=== PATIENT | female | born 1955 | race Caucasian/White ===

== ENCOUNTER → 2023-04-08 13:02 | Outpatient (REF) | payer MEDICARE, OTHER, SELFPAY ==
[2023-04-08 15:44] LABS: Hematocrit 36.4 % (37.0-47.0); Mean Corpuscular Hgb 29.1 pg (27.0-31.0); Mean Corpuscular Volume 88.1 fL (81.0-99.0); Mean Platelet Volume 10.4 fL (7.4-10.4); Platelet Count 382 10^3/uL (130-400); Red Blood Cell Count 4.13 10^6/uL (4.20-5.40); Red Cell Dist. Width 12.7 % (11.5-14.5); White Blood Cell Count 8.5 10^3/uL (4.8-10.8)
[2023-04-08 15:58] LABS: Blood Urea Nitrogen 27 mg/dl (7-17); Calcium 9.2 mg/dl (8.4-10.2); Carbon Dioxide 31 mmol/L (22-30); Chloride 100 mmol/L (98-107); Glucose 101 mg/dl (70-99); Potassium 4.4 mmol/L (3.5-5.1); Sodium 139 mmol/L (135-145); eGFR 49.92
[2023-04-09 11:03] LABS: Glycohemoglobin (HgbA1c) 5.3 % (4.0-5.6)
== END ==
LOC: HWLAB 13:02
PROVIDERS: ATTENDING PHYSICIAN Orthopaedic Surgery; FAMILY PHYSICIAN Internal Medicine
DX: Z01.818 Encounter for other preprocedural examination (principal); E11.9 Type 2 diabetes mellitus without complications
CPT/HCPCS: 36415; 80048; 83036; 85027

== ENCOUNTER → 2023-04-22 14:42 | Outpatient (REF) | payer MEDICARE, OTHER, SELFPAY | LOC: HWRAD 14:42 | PROVIDERS: ATTENDING PHYSICIAN Internal Medicine | DX: M54.42 Lumbago with sciatica, left side (principal) | CPT/HCPCS: 72110 ==

== ENCOUNTER → 2023-05-13 14:32 | Outpatient (REF) | payer MEDICARE, OTHER, SELFPAY | LOC: HWRAD 14:32 | PROVIDERS: ATTENDING PHYSICIAN Physician Assistant Medical; FAMILY PHYSICIAN Internal Medicine | DX: R10.32 Left lower quadrant pain (principal) | CPT/HCPCS: 72170 ==

== ENCOUNTER → 2023-05-27 16:13 | Outpatient (REF) | payer MEDICARE, OTHER, SELFPAY | LOC: HWRAD 16:13 | PROVIDERS: ATTENDING PHYSICIAN Anesthesiology; FAMILY PHYSICIAN Internal Medicine | DX: M54.16 Radiculopathy, lumbar region (principal) | CPT/HCPCS: 72131 ==

== ENCOUNTER → 2023-08-04 12:48 | Outpatient (REF) | payer MEDICARE, OTHER, SELFPAY | LOC: WOUND 12:48 | PROVIDERS: ATTENDING PHYSICIAN Surgery; FAMILY PHYSICIAN Internal Medicine | DX: S31.109A Unspecified open wound of abdominal wall, unspecified quadrant without penetration into peritoneal cavity, initial encounter (principal); E11.69 Type 2 diabetes mellitus with other specified complication; E66.01 Morbid (severe) obesity due to excess calories; I89.0 Lymphedema, not elsewhere classified; N18.31 Chronic kidney disease, stage 3a; E11.22 Type 2 diabetes mellitus with diabetic chronic kidney disease | CPT/HCPCS: 99203 ==

== ENCOUNTER → 2023-08-16 13:22 | Outpatient (REF) | payer MEDICARE, OTHER, SELFPAY | LOC: WOUND 13:22 | PROVIDERS: ATTENDING PHYSICIAN Surgery; FAMILY PHYSICIAN Internal Medicine | DX: S31.109A Unspecified open wound of abdominal wall, unspecified quadrant without penetration into peritoneal cavity, initial encounter (principal); E11.69 Type 2 diabetes mellitus with other specified complication; E66.01 Morbid (severe) obesity due to excess calories; I89.0 Lymphedema, not elsewhere classified; N18.31 Chronic kidney disease, stage 3a; E11.22 Type 2 diabetes mellitus with diabetic chronic kidney disease; X58.XXXA Exposure to other specified factors, initial encounter | CPT/HCPCS: 99212 ==

== ENCOUNTER → 2023-09-26 12:42 | Outpatient (REF) | payer MEDICARE, OTHER, SELFPAY ==
[2023-09-26 15:36] LABS: % Basophils 1.1 % (0-2); % Eosinophils 5.9 % (0-6); % Immature Granulocytes 0.3 % (0-0.5); % Lymphocytes 29.8 % (20.5-51.1); % Monocytes 9.9 % (1.7-9.3); Absolute Basophils 0.1 10^3/uL (0-0.2); Absolute Eosinophils 0.5 10^3/uL (0-0.7); Absolute Lymphocytes 2.7 10^3/uL (1.2-3.4); Absolute Monocytes 0.9 10^3/uL (0.1-0.6); Absolute Neutrophils 4.8 10^3/uL (1.4-6.5); Hemoglobin 11.4 g/dL (12.0-16.0); Mean Corp Hgb Conc. 32.6 g/dL (33.0-37.0); Mean Corpuscular Hgb 25.9 pg (27.0-31.0); Mean Corpuscular Volume 79.5 fL (81.0-99.0); Nucleated Red Blood Cells % 0 %; Platelet Count 374 10^3/uL (130-400); Red Cell Dist. Width 16.5 % (11.5-14.5); White Blood Cell Count 9.1 10^3/uL (4.8-10.8)
[2023-09-26 15:46] LABS: ALT (SGPT) 14 U/L (0-35); AST (SGOT) 23 U/L (14-36); Albumin 3.5 g/dl (3.5-5.0); Alkaline Phosphatase 77 U/L (38-126); Blood Urea Nitrogen 26 mg/dl (7-17); Calcium 9.3 mg/dl (8.4-10.2); Carbon Dioxide 30 mmol/L (22-30); Chloride 105 mmol/L (98-107); Glucose 89 mg/dl (70-99); HDL Cholesterol 43 mg/dl; LDL Cholesterol, Calculated 78 mg/dl; Potassium 4.2 mmol/L (3.5-5.1); Sodium 138 mmol/L (135-145); Total Bilirubin 0.2 mg/dl (0.2-1.3); Total Cholesterol 144 mg/dl (50-199); Total Protein 5.6 g/dl (6.3-8.2); Triglyceride 117 mg/dl (10-149); Very Low Density Lipoprotein 23 mg/dl (0-30); eGFR 49.92
[2023-09-26 16:07] LABS: Microalbumin/creatinine Ratio 6.5 mg/g
[2023-09-26 16:14] LABS: TSH 0.75 uIU/ml (0.47-4.68)
[2023-09-27 08:57] LABS: Glycohemoglobin (HgbA1c) 4.9 % (4.0-5.6)
== END ==
LOC: HWLAB 12:42
PROVIDERS: ATTENDING PHYSICIAN Internal Medicine
DX: E03.9 Hypothyroidism, unspecified (principal); E11.65 Type 2 diabetes mellitus with hyperglycemia; I10 Essential (primary) hypertension; E78.2 Mixed hyperlipidemia
CPT/HCPCS: 36415; 80053; 80061; 82043; 82570; 83036; 84443; 85025

== ENCOUNTER → 2023-10-11 13:20 | Outpatient (REF) | payer MEDICARE, OTHER, SELFPAY ==
[2023-10-11 16:07] LABS: Iron 32 ug/dl (37-170)
[2023-10-11 16:16] LABS: Percent Saturation 9 % (20-50); Total Iron Binding Capacity 347 ug/dl (265-497)
[2023-10-11 16:45] LABS: Ferritin 9.6 ng/ml (11.1-264.0)
== END ==
LOC: HWLAB 13:20
PROVIDERS: ATTENDING PHYSICIAN Internal Medicine Hematology & Oncology; FAMILY PHYSICIAN Family Medicine
DX: D72.829 Elevated white blood cell count, unspecified (principal); E61.1 Iron deficiency; D50.9 Iron deficiency anemia, unspecified
CPT/HCPCS: 36415; 82728; 83540; 83550

== ENCOUNTER → 2023-10-21 12:53 | Outpatient (REF) | payer MEDICARE, OTHER, SELFPAY ==
[2023-10-21 16:14] LABS: Iron 32 ug/dl (37-170)
[2023-10-21 16:24] LABS: Percent Saturation 9 % (20-50); Total Iron Binding Capacity 322 ug/dl (265-497)
[2023-10-21 16:27] LABS: % Basophils 0.5 % (0-2); % Eosinophils 1.8 % (0-6); % Immature Granulocytes 0.4 % (0-0.5); % Monocytes 7.7 % (1.7-9.3); % Neutrophils 71.6 % (42.2-75.2); Absolute Basophils 0.1 10^3/uL (0-0.2); Absolute Eosinophils 0.2 10^3/uL (0-0.7); Absolute Immature Granulocytes 0.1 10^3/uL (0-0.05); Absolute Monocytes 0.9 10^3/uL (0.1-0.6); Absolute Neutrophils 8.1 10^3/uL (1.4-6.5); Hematocrit 33.6 % (37.0-47.0); Mean Corp Hgb Conc. 32.7 g/dL (33.0-37.0); Mean Corpuscular Hgb 26.8 pg (27.0-31.0); Mean Corpuscular Volume 81.8 fL (81.0-99.0); Mean Platelet Volume 10.4 fL (7.4-10.4); Nucleated Red Blood Cells % 0 %; Platelet Count 338 10^3/uL (130-400); Red Blood Cell Count 4.11 10^6/uL (4.20-5.40); Red Cell Dist. Width 18.8 % (11.5-14.5); White Blood Cell Count 11.3 10^3/uL (4.8-10.8)
[2023-10-21 16:51] LABS: Ferritin 10.8 ng/ml (11.1-264.0)
== END ==
LOC: HWLAB 12:53
PROVIDERS: ATTENDING PHYSICIAN Internal Medicine Hematology & Oncology; FAMILY PHYSICIAN Internal Medicine
DX: D72.829 Elevated white blood cell count, unspecified (principal); E61.1 Iron deficiency; D50.9 Iron deficiency anemia, unspecified
CPT/HCPCS: 36415; 82728; 83540; 83550; 85025

== ENCOUNTER → 2023-10-24 15:59 | Outpatient (REF) | payer MEDICARE, OTHER, SELFPAY ==
[2023-10-24 11:59] LABS: % Basophils 0.7 % (0-2); % Eosinophils 3.6 % (0-6); % Immature Granulocytes 0.5 % (0-0.5); % Lymphocytes 24.4 % (20.5-51.1); % Monocytes 9.4 % (1.7-9.3); % Neutrophils 61.4 % (42.2-75.2); Absolute Basophils 0.1 10^3/uL (0-0.2); Absolute Eosinophils 0.5 10^3/uL (0-0.7); Absolute Immature Granulocytes 0.1 10^3/uL (0-0.05); Absolute Lymphocytes 3.6 10^3/uL (1.2-3.4); Absolute Monocytes 1.4 10^3/uL (0.1-0.6); Absolute Neutrophils 9.1 10^3/uL (1.4-6.5); Hematocrit 35.1 % (37.0-47.0); Hemoglobin 11.4 g/dL (12.0-16.0); Mean Corp Hgb Conc. 32.5 g/dL (33.0-37.0); Mean Corpuscular Hgb 26.4 pg (27.0-31.0); Mean Corpuscular Volume 81.3 fL (81.0-99.0); Mean Platelet Volume 9.9 fL (7.4-10.4); Nucleated Red Blood Cells % 0 %; Platelet Count 386 10^3/uL (130-400); Red Blood Cell Count 4.32 10^6/uL (4.20-5.40); Red Cell Dist. Width 18.9 % (11.5-14.5); White Blood Cell Count 14.8 10^3/uL (4.8-10.8)
[2023-10-24 12:45] LABS: Vitamin D, 25-OH*** 57.1 ng/mL (30-80)
== END ==
LOC: OIDL 15:59
PROVIDERS: ATTENDING PHYSICIAN Internal Medicine Hematology & Oncology
DX: D72.829 Elevated white blood cell count, unspecified (principal); E55.9 Vitamin D deficiency, unspecified
CPT/HCPCS: 82306; 85025

== ENCOUNTER 2023-10-29 15:32 | Emergency (ER) | payer MEDICARE, OTHER, SELFPAY ==
[2023-10-29 15:41] VITALS: BP 131/73
[2023-10-29 16:04] LABS: % Basophils 0.8 % (0-2); % Eosinophils 3.3 % (0-6); % Immature Granulocytes 0.5 % (0-0.5); % Monocytes 8.6 % (1.7-9.3); % Neutrophils 72.8 % (42.2-75.2); Absolute Basophils 0.1 10^3/uL (0-0.2); Absolute Eosinophils 0.5 10^3/uL (0-0.7); Absolute Immature Granulocytes 0.1 10^3/uL (0-0.05); Absolute Monocytes 1.3 10^3/uL (0.1-0.6); Absolute Neutrophils 10.6 10^3/uL (1.4-6.5); Hematocrit 36.2 % (37.0-47.0); Hemoglobin 11.8 g/dL (12.0-16.0); Mean Corp Hgb Conc. 32.6 g/dL (33.0-37.0); Mean Corpuscular Hgb 26.7 pg (27.0-31.0); Mean Corpuscular Volume 81.9 fL (81.0-99.0); Mean Platelet Volume 9.8 fL (7.4-10.4); Nucleated Red Blood Cells % 0 %; Platelet Count 363 10^3/uL (130-400); Red Blood Cell Count 4.42 10^6/uL (4.20-5.40); Red Cell Dist. Width 20.5 % (11.5-14.5); White Blood Cell Count 14.6 10^3/uL (4.8-10.8)
[2023-10-29 16:17] LABS: ALT (SGPT) 22 U/L (0-35); AST (SGOT) 33 U/L (14-36); Albumin 3.7 g/dl (3.5-5.0); Alkaline Phosphatase 75 U/L (38-126); Blood Urea Nitrogen 23 mg/dl (7-17); Calcium 9.3 mg/dl (8.4-10.2); Carbon Dioxide 25 mmol/L (22-30); Chloride 110 mmol/L (98-107); Glucose 111 mg/dl (70-99); Potassium 4.3 mmol/L (3.5-5.1); Sodium 141 mmol/L (135-145); Total Bilirubin 0.5 mg/dl (0.2-1.3); Total Protein 5.9 g/dl (6.3-8.2); eGFR 49.92
[2023-10-29 16:27] LABS: NT-proBNP 302 pg/ml
[2023-10-29 17:36] VITALS: BMI 39.4
[2023-10-29 17:43] VITALS: BP 119/72
[2023-10-29 18:00] VITALS: BP 111/61
--- NOTE | 2023-10-29 18:20 | ED.GENMED ---
History of Present Illness
General
Chief Complaint: Musculo-Skeletal Complaint
Time Seen by Provider: 10/29/23 18:05
History of Present Illness
History of Present Illness:
67-year-old female With history of hypertension, hyperlipidemia, dbn-ipkajke-eojdnijpo diabetes, and hypothyroidism presents to the emergency department for evaluation of bilateral leg pain with significantly increased lower extremity edema over the
past several days. She states she has chronic leg pain right worse than left, has been seeing her paintless dent repair technician for this and recently received an epidural. States that 'overnight' her legs became severely swollen. She does have a
Charcot foot on the left and she is awaiting a custom orthotic for this. Denies any fevers or chills.
Past History
Past History
ED Past Medical History: HTN, Hypercholesterolemia, Hypothyroidism and Other (Review C. difficile with stool transplant, diabetes, hyperlipidemia, hypothyroidism, chronic pain, bilateral knee replacements, asthma)
ED Past Surgical History: Other (00phrectomy hysterectomy, perforated duodenal ulcer)
Social History
Tobacco: Non-smoker
Alcohol: None
Drug: None
Personal:
Living: with family
Employment: Employed
Family History
Family History: Other (Noncontributory)
Review of Systems
Review of Systems
Allergies reviewed?: Yes
All Other Systems: ROS reviewed and negative except as documented in HPI and ROS
Phy Exam
Physical Exam
Physical Exam:
GEN: Well appearing, NAD, WDWN
HEENT: Oral mucosa moist, no scleral icterus
Cardiac: Regular rate And rhythm, no murmurs
Lung: No respiratory distress, no tachypnea Lungs clear to auscultation bilaterally
MSK: No gross deformity or injuries. 3+ pitting edema bilateral lower extremities. The left medial calf there is mild ecchymosis adjacent to a superficial ruptured bullae, no erythema. DP and PT pulses 2+ bilat
Skin: Good color, no pallor or jaundice, no rashes
Neuro: AO x3, moves all extremities freely
Psych: Calm, cooperative
Course
Orders/Labs/Results
Orders:
Orders
10/29/23 15:53
BNP [NT-proBNP] Urgent
Complete Blood Count/With Diff Urgent
Comprehensive Metabolic Panel Urgent
10/29/23 18:16
Venous Doppler Lwr Ext Bilat [US Periph Venous LOWER Ext Rolando] Urgent
Comment:
Reason For Exam: BLE edema
Abnormal Lab Results
10/29/23
15:53
WBC 14.6 H 10^3/uL
(4.8-10.8)
Hgb 11.8 L g/dL
(12.0-16.0)
Hct 36.2 L %
(37.0-47.0)
MCH 26.7 L pg
(27.0-31.0)
MCHC 32.6 L g/dL
(33.0-37.0)
RDW 20.5 H %
(11.5-14.5)
Abs Immat Gran (auto) 0.1 H 10^3/uL
(0-0.05)
Absolute Neuts (auto) 10.6 H 10^3/uL
(1.4-6.5)
Absolute Monos (auto) 1.3 H 10^3/uL
(0.1-0.6)
Lymphocytes % 14.0 L %
(20.5-51.1)
Chloride 110 H mmol/L
(98-107)
BUN 23 H mg/dl
(7-17)
Creatinine 1.2 H mg/dL
(0.6-1.0)
Glucose 111 H mg/dl
(70-99)
Total Protein 5.9 L g/dl
(6.3-8.2)
10/29/23 15:53
10/29/23 15:53
Vital Signs
Initial and Last Documented VS:
Initial Vital Signs
Temp Pulse Resp BP Pulse Ox
97.8 F 100 20 131/73 96
10/29/23 15:41 10/29/23 15:41 10/29/23 15:41 10/29/23 15:41 10/29/23 15:41
Last Documented Vital Signs
Temp Pulse Resp BP Pulse Ox
97.8 F 99 28 111/61 98
10/29/23 15:41 10/29/23 18:30 10/29/23 18:30 10/29/23 18:00 10/29/23 17:45
MDM/Problems Addressed
MDM/Problems Addressed:
Patient's labs are reassuring. She has no clinical findings to support infectious etiology to her leg pain given that there is no erythema or warmth. She does have mild leukocytosis however I do not suspect infectious cause. She describes
symptoms as a burning pain particularly in the right leg that is worse with exertion however there is no aching discomfort and the pain does not seem to resolve at rest, she has strong dorsalis pedis and posterior tibialis pulses bilaterally thus I
do not have any concern for peripheral arterial disease/claudication. Ultrasound shows no evidence for DVT. Likely venous stasis causing her edema. Her chronic leg pain is likely neuropathic in nature. She is on chronic opioids will prescribe
her a small additional quantity however she is advised to follow-up with her paintless dent repair technician for further discussion
*Critical Care Note
Total Time (30-74mins, 75-104mins- exclusive of procedures): Not Applicable
ED Attending Note
-
Portions of this chart may have been created with voice recognition software.� Occasional wrong word or��sound alike� substitutions may have occurred due to the inherent limitations of voice recognition software.
Discharge Plan
Departure
Patient Disposition: Home (Routine Discharge)
Date of Disposition: 10/29/23
Time of Disposition: 19:19
Patient with high blood pressure during this ER visit?: No
Discharge Problem:
Bilateral edema of lower extremity
Instructions: Swelling
Prescriptions:
New
hydrocodone-acetaminophen 5-325 mg tablet
1 tab PO Q8H PRN (Reason: pain) Qty: 8 0RF
No Action
atorvastatin 10 MG tablet
20 mg PO DAILY
levothyroxine [Levothroid] 50 MCG tablet
50 mcg PO DAILY
lisinopril 40 MG tablet
40 mg PO DAILY
bupropion HCl 300 MG tablet extended release 24 hr
300 mg PO DAILY
duloxetine 60 MG capsule,delayed release(DR/EC)
20 mg PO DAILY
polyethylene glycol 3350 17 GRAMS powder in packet
17 grams PO DAILY Qty: 12 0RF
famotidine 40 MG tablet
40 mg PO HS
cyanocobalamin (vitamin B-12) 1,000 MCG tablet
1,000 mcg PO DAILY
amlodipine 5 MG tablet
5 mg PO DAILY
omeprazole 40 MG capsule,delayed release(DR/EC)
40 mg PO DAILY
calcium carbonate [Calcium 500] 500 MG tablet,chewable
1 tab PO DAILY
rosuvastatin 5 MG tablet
5 mg PO QPM
magnesium citrate 100 MG tablet
200 mg PO HS
pediatric multivitamin no.17 1 TABLET tablet,chewable
1 ea PO DAILY
Phentermine HCl
37.5 mg PO DAILY
mupirocin 1 APPLIC ointment
1 applic topical BID Qty: 1 0RF
Patient Comments:
pt states she started as ordered 01/10 and did own dose this am at 0300
hydrochlorothiazide 25 MG tablet
25 mg PO DAILY
sennosides [senna] 1 TABLET tablet
2 tab PO BID 0RF
acetaminophen 325 MG tablet
650 mg PO Q4HPRN PRN (Reason: mild pain) 0RF
aspirin 325 MG tablet
325 mg PO DAILY 0RF
tramadol 50 MG tablet
100 mg PO TID Qty: 30 0RF
Rx Instructions:
Dx TSA
Ongoing therapy
hydrocodone-acetaminophen 1 TABLET tablet
1 tab PO Q4HPRN PRN (Reason: moderate pain) Qty: 20 0RF
Rx Instructions:
Dx TSA
ongoing therapy
hydrocodone-acetaminophen 1 TABLET tablet
2 tab PO Q4HPRN PRN (Reason: severe pain) Qty: 20 0RF
Rx Instructions:
Dx TSA
ongoing therapy
docusate sodium 100 MG capsule
100 mg PO BID 0RF
insulin aspart U-100 [Novolog FlexPen U-100 Insulin] 300 UNITS/3 ML insulin pen
0 units SC AC 0RF
insulin aspart U-100 [Novolog FlexPen U-100 Insulin] 300 UNITS/3 ML insulin pen
3 units SC AC 0RF
ibuprofen [Advil] 200 MG tablet
400 mg PO BID Qty: 0 0RF
Rx Instructions:
with food
diclofenac epolamine 1 EACH patch 12 hour
1 ea S Q12H Qty: 2 0RF
Rx Instructions:
2 patches to R neck q12h
Referrals:
Dafne Ma DO [Family Provider] -
Activity Restrictions/Additional Instructions:
Increase your furosemide to 80mg for 3-5 days. If edema improves rapidly, stop after 3 days and return to your normal 40mg dose
Follow up with your primary care physician to discuss compression stockings if symptoms worsen
Interventions
Interventions:
*Risk Screen - Suicide Last Done: 10/29/23 17:36
*General Assessment Last Done: 10/29/23 17:36
*Neglect/Abuse Screening Last Done: 10/29/23 17:36
ED- Fall Risk Assessment Last Done: 10/29/23 17:36
*ED COVID-19 Vaccine History Last Done: 10/29/23 17:36
*Nursing Disposition Last Done: 10/29/23 19:50
ED-Musculoskeletal Assessment Last Done: 10/29/23 17:36
Discharge Date and Time
Discharge Date/Time: 10/29/23 19:52
Print Language: MALAY
== END 2023-10-29 19:52 | disposition home or self-care (01) ==
LOC: EMR 15:32
PROVIDERS: Emergency Medicine; EMERGENCY PHYSICIAN Student in an Organized Health Care Education/Training Program; FAMILY PHYSICIAN Internal Medicine
DX: R60.0 Localized edema (principal); E78.00 Pure hypercholesterolemia, unspecified; E11.9 Type 2 diabetes mellitus without complications; E03.9 Hypothyroidism, unspecified; I10 Essential (primary) hypertension; J45.909 Unspecified asthma, uncomplicated; Z90.710 Acquired absence of both cervix and uterus; Z96.653 Presence of artificial knee joint, bilateral
CPT/HCPCS: 99284; 80053; 83880; 85025; 93970

== ENCOUNTER → 2023-10-31 13:15 | Outpatient (REF) | payer MEDICARE, OTHER, SELFPAY ==
[2023-10-31 11:16] LABS: % Basophils 0.9 % (0-2); % Eosinophils 4.8 % (0-6); % Immature Granulocytes 0.5 % (0-0.5); % Lymphocytes 29.6 % (20.5-51.1); % Monocytes 8.9 % (1.7-9.3); % Neutrophils 55.3 % (42.2-75.2); Absolute Basophils 0.1 10^3/uL (0-0.2); Absolute Eosinophils 0.5 10^3/uL (0-0.7); Absolute Immature Granulocytes 0.1 10^3/uL (0-0.05); Absolute Lymphocytes 2.9 10^3/uL (1.2-3.4); Absolute Monocytes 0.9 10^3/uL (0.1-0.6); Absolute Neutrophils 5.4 10^3/uL (1.4-6.5); Hematocrit 34.6 % (37.0-47.0); Hemoglobin 11.4 g/dL (12.0-16.0); Mean Corp Hgb Conc. 32.9 g/dL (33.0-37.0); Mean Corpuscular Hgb 27.5 pg (27.0-31.0); Mean Corpuscular Volume 83.6 fL (81.0-99.0); Mean Platelet Volume 9.9 fL (7.4-10.4); Nucleated Red Blood Cells % 0 %; Platelet Count 326 10^3/uL (130-400); Red Blood Cell Count 4.14 10^6/uL (4.20-5.40); Red Cell Dist. Width 20.9 % (11.5-14.5); White Blood Cell Count 9.8 10^3/uL (4.8-10.8)
[2023-10-31 18:16] LABS: Erythrocyte Sed Rate 12 mm/hour (0-20)
== END ==
LOC: OIDL 13:15
PROVIDERS: ATTENDING PHYSICIAN Internal Medicine Hematology & Oncology
DX: D72.829 Elevated white blood cell count, unspecified (principal)
CPT/HCPCS: 85025; 85652

== ENCOUNTER → 2023-11-22 12:30 | Outpatient (REF) | payer MEDICARE, OTHER, SELFPAY ==
[2023-11-22 14:11] VITALS: BMI 36.5
[2023-11-22 14:37] LABS: Hematocrit 41.8 % (37.0-47.0); Hemoglobin 13.8 g/dL (12.0-16.0); Mean Corpuscular Hgb 29.6 pg (27.0-31.0); Mean Corpuscular Volume 89.7 fL (81.0-99.0); Mean Platelet Volume 10.3 fL (7.4-10.4); Platelet Count 330 10^3/uL (130-400); Red Blood Cell Count 4.66 10^6/uL (4.20-5.40); Red Cell Dist. Width 21.1 % (11.5-14.5); White Blood Cell Count 8.5 10^3/uL (4.8-10.8)
[2023-11-22 15:09] LABS: ALT (SGPT) 21 U/L (0-35); AST (SGOT) 27 U/L (14-36); Albumin 3.3 g/dl (3.5-5.0); Alkaline Phosphatase 88 U/L (38-126); Blood Urea Nitrogen 25 mg/dl (7-17); Calcium 9.4 mg/dl (8.4-10.2); Carbon Dioxide 27 mmol/L (22-30); Chloride 110 mmol/L (98-107); Estimated Creatinine Clearance 45 ml/min; Glucose 94 mg/dl (70-99); Potassium 4.2 mmol/L (3.5-5.1); Sodium 146 mmol/L (135-145); Total Bilirubin 0.3 mg/dl (0.2-1.3); Total Protein 5.5 g/dl (6.3-8.2); eGFR 49.92
[2023-11-23 08:39] LABS: Glycohemoglobin (HgbA1c) 4.5 % (4.0-5.6)
[2023-12-06 16:04] VITALS: BMI 36.5
--- NOTE | 2023-12-06 16:09 | PTCARENOTE ---
Pt stated she was put on Cefuroxime for a recent sinus infection, they switched it to Amoxicillin today due to GI upset. She has a 'blister' on her left left that is oozing, has to keep it wrapped. She has no help at home, has not gotten her
walker for after procedure and has not set up her outpt therapy. She was made aware that she needs to get her walker and set up outpt PT for 12/11 NATACHA. Shaneka in the office was made aware of all these findings.
She has been taking phentermine daily longer than recommended, last dose today. Dr Dillon made aware and stated she needs to stop the rest of the week and can proceed. Pt verbalized understanding.
== END ==
LOC: REG 12:30
PROVIDERS: ATTENDING PHYSICIAN Orthopaedic Surgery; FAMILY PHYSICIAN Internal Medicine
DX: M17.11 Unilateral primary osteoarthritis, right knee (principal); Z01.818 Encounter for other preprocedural examination
CPT/HCPCS: 36415; 80053; 83036; 85027; 87070; 93005

== ENCOUNTER → 2023-12-19 13:01 | Outpatient (REF) | payer MEDICARE, OTHER, SELFPAY ==
[2023-12-19 15:40] LABS: % Basophils 1.3 % (0-2); % Eosinophils 6.2 % (0-6); % Immature Granulocytes 0.2 % (0-0.5); % Lymphocytes 29.8 % (20.5-51.1); % Monocytes 10.4 % (1.7-9.3); % Neutrophils 52.1 % (42.2-75.2); Absolute Basophils 0.1 10^3/uL (0-0.2); Absolute Eosinophils 0.5 10^3/uL (0-0.7); Absolute Lymphocytes 2.6 10^3/uL (1.2-3.4); Absolute Monocytes 0.9 10^3/uL (0.1-0.6); Absolute Neutrophils 4.5 10^3/uL (1.4-6.5); Hematocrit 38.8 % (37.0-47.0); Hemoglobin 12.8 g/dL (12.0-16.0); Mean Corpuscular Hgb 29.6 pg (27.0-31.0); Mean Corpuscular Volume 89.8 fL (81.0-99.0); Mean Platelet Volume 10.2 fL (7.4-10.4); Nucleated Red Blood Cells % 0 %; Platelet Count 315 10^3/uL (130-400); Red Blood Cell Count 4.32 10^6/uL (4.20-5.40); White Blood Cell Count 8.6 10^3/uL (4.8-10.8)
[2023-12-19 15:49] LABS: Albumin 3.4 g/dl (3.5-5.0); Blood Urea Nitrogen 18 mg/dl (7-17); Calcium 9.1 mg/dl (8.4-10.2); Carbon Dioxide 28 mmol/L (22-30); Chloride 105 mmol/L (98-107); Glucose 78 mg/dl (70-99); Iron 69 ug/dl (37-170); Phosphorus 4.3 mg/dl (2.5-4.5); Potassium 3.9 mmol/L (3.5-5.1); Sodium 141 mmol/L (135-145); eGFR 45.07
[2023-12-19 15:58] LABS: Percent Saturation 32 % (20-50); Total Iron Binding Capacity 211 ug/dl (265-497)
== END ==
LOC: HWLAB 13:01
PROVIDERS: ATTENDING PHYSICIAN Internal Medicine Hematology & Oncology; FAMILY PHYSICIAN Internal Medicine; REFERRING PHYSICIAN Internal Medicine Cardiovascular Disease
DX: D72.829 Elevated white blood cell count, unspecified (principal); E61.1 Iron deficiency; D50.9 Iron deficiency anemia, unspecified; I10 Essential (primary) hypertension; I89.0 Lymphedema, not elsewhere classified
CPT/HCPCS: 36415; 80069; 82728; 83540; 83550; 85025

== ENCOUNTER 2024-01-16 11:26 | Outpatient (RCR) | payer MEDICARE, OTHER, SELFPAY | END 2024-01-16 23:59 | disposition home or self-care (01) | LOC: RPT 11:26 | PROVIDERS: ATTENDING PHYSICIAN Internal Medicine Cardiovascular Disease; FAMILY PHYSICIAN Internal Medicine | DX: I89.0 Lymphedema, not elsewhere classified (principal); Z73.6 Limitation of activities due to disability; R26.2 Difficulty in walking, not elsewhere classified | CPT/HCPCS: 97162; 97530 ==

== ENCOUNTER 2024-02-03 23:51 | Inpatient (IN) | payer MEDICARE, OTHER, SELFPAY ==
[2024-02-03 17:02] VITALS: BP 107/69
[2024-02-03 17:21] LABS: % Basophils 0.3 % (0-2); % Immature Granulocytes 0.5 % (0-0.5); % Lymphocytes 6.5 % (20.5-51.1); % Monocytes 6.3 % (1.7-9.3); % Neutrophils 86.4 % (42.2-75.2); Absolute Basophils 0.1 10^3/uL (0-0.2); Absolute Immature Granulocytes 0.1 10^3/uL (0-0.05); Absolute Lymphocytes 1.3 10^3/uL (1.2-3.4); Absolute Monocytes 1.3 10^3/uL (0.1-0.6); Absolute Neutrophils 17.6 10^3/uL (1.4-6.5); Hematocrit 44.3 % (37.0-47.0); Hemoglobin 15.2 g/dL (12.0-16.0); Mean Corp Hgb Conc. 34.3 g/dL (33.0-37.0); Mean Corpuscular Hgb 31.7 pg (27.0-31.0); Mean Corpuscular Volume 92.5 fL (81.0-99.0); Mean Platelet Volume 10.2 fL (7.4-10.4); Nucleated Red Blood Cells % 0 %; Platelet Count 325 10^3/uL (130-400); Red Blood Cell Count 4.79 10^6/uL (4.20-5.40); Red Cell Dist. Width 12.6 % (11.5-14.5); White Blood Cell Count 20.4 10^3/uL (4.8-10.8)
[2024-02-03 17:38] LABS: ALT (SGPT) 18 U/L (0-35); AST (SGOT) 26 U/L (14-36); Albumin 3.8 g/dl (3.5-5.0); Alkaline Phosphatase 76 U/L (38-126); Blood Urea Nitrogen 31 mg/dl (7-17); Calcium 9.5 mg/dl (8.4-10.2); Carbon Dioxide 23 mmol/L (22-30); Chloride 109 mmol/L (98-107); Glucose 129 mg/dl (70-99); Potassium 4.3 mmol/L (3.5-5.1); Sodium 141 mmol/L (135-145); Total Bilirubin 0.4 mg/dl (0.2-1.3); eGFR 37.96
--- NOTE | 2024-02-03 19:19 | ED.GENMED ---
History of Present Illness
<Fatuma Lujan PA-C - Last Filed: 02/03/24 23:08>
General
Chief Complaint: Vaginal Bleeding
Source: patient
Exam Limitations: none
Time Seen by Provider: 02/03/24 19:19
Nursing documentation reviewed up to this point in time: agreed with
History of Present Illness
History of Present Illness:
68-year-old female with a past medical history of cervical cancer status post total hysterectomy, diabetes, hypertension, hypothyroidism presents emergency department today with concerns of abdominal pain. This started last night. She feels that
in the lower abdomen on both sides. She has associated intermittent nausea and vomiting. She denies any fevers or chills. She states that this pain feels similar to period cramps however she states that the pain is not in her pelvis. She states
that the pain has been getting worse since last night and has not relieving with Tylenol. The pain does not radiate anywhere. She denies dark melanotic stools. She denies blood in her vomit. She does note that she believes she has vaginal
bleeding, however when asked about this further, she states that she only noticed the blood when urinating and is not sure that it is coming from the vagina. She denies any rectal bleeding or pain. She denies any diarrhea or constipation.
Past History
<RAFY Hung Last Filed: 02/03/24 23:08>
Past History
ED Past Medical History: HTN, Hypercholesterolemia, Hypothyroidism and Other (Review C. difficile with stool transplant, diabetes, hyperlipidemia, hypothyroidism, chronic pain, bilateral knee replacements, asthma)
ED Past Surgical History: Other (00phrectomy hysterectomy, perforated duodenal ulcer)
Social History
Tobacco: Non-smoker
Alcohol: None
Drug: None
Personal:
Living: with family
Employment: Employed
Family History
Family History: Other (Noncontributory)
Review of Systems
<Fatuma Lujan PA-C - Last Filed: 02/03/24 23:08>
Review of Systems
All Other Systems: ROS reviewed and negative except as documented in HPI and ROS
Phy Exam
<Fatuma Lujan PA-C - Last Filed: 02/03/24 23:08>
Physical Exam
Physical Exam:
General: Patient is well appearing and in no acute distress; non-toxic
Skin: Warm and dry, no rashes or lesions
Head: Normocephalic, atraumatic
Eyes: Sclera non-icteric. EOMs intact. PERRLA.
Cardiac: Regular rate and rhythm, no murmurs
Pulm: Normal respiratory effort
Abdomen: Diffuse lower abdominal tenderness to palpation, large ventral hernia noted
Genitourinary: No vaginal lesions. Vaginal mucosa pink and moist without any lesions, no evidence of active bleeding. Surgically absent cervix.
Neuro: CN II-XII intact, no focal neurologic deficits.
Psychiatric: Appropriate mood and affect.
Course
<Fatuma Lujan PA-C - Last Filed: 02/03/24 23:08>
Orders/Labs/Results
Orders:
Orders
02/03/24 17:13
Type+Screen Urgent
Complete Blood Count/With Diff Urgent
Comprehensive Metabolic Panel Urgent
Lipase Urgent
Comment: ADD ON
02/03/24 19:42
ABO2 Urgent
BBK Wristband Number:
Associate notified that ABO2 has been ordered: [id number]/DARLIN
Date: 02/03/24
Time: 17:38
Feeder Driver ID: [id number]
02/03/24 19:53
CT Abd/pel W Iv And Oral Contr Urgent
Comment:
Reason For Exam: diffuse lower abdominal pain
Iohexol [Omnipaque] See Protocol PO NOW STA
02/03/24 21:06
Ondansetron Injectable [Zofran] 4 mg IV NOW STA
02/03/24 21:07
Add On- LAB Urgent
Tests Added?: lipase
Morphine Sulfate 4 mg IV NOW STA
02/03/24 21:58
Urinalysis Reflex To Culture Urgent
Date Specimen was Collected: 02/03/24
Time Specimen was Collected: 21:55
Urine Microscopic Reflex Cult Urgent
02/03/24 22:50
Lactic Acid Urgent
02/03/24 22:52
C DIFF [C difficile Antigen & Toxins] Urgent
LA NENA Source: Feces/Stool
Specimen Description:
Stool Culture Urgent
LA NENA Source: Feces/Stool
Specimen Description:
Abnormal Lab Results
02/03/24 02/03/24
17:13 21:58
WBC 20.4 H 10^3/uL
(4.8-10.8)
MCH 31.7 H pg
(27.0-31.0)
Abs Immat Gran (auto) 0.1 H 10^3/uL
(0-0.05)
Absolute Neuts (auto) 17.6 H 10^3/uL
(1.4-6.5)
Absolute Monos (auto) 1.3 H 10^3/uL
(0.1-0.6)
Neutrophils % 86.4 H %
(42.2-75.2)
Lymphocytes % 6.5 L %
(20.5-51.1)
Chloride 109 H mmol/L
(98-107)
BUN 31 H mg/dl
(7-17)
Creatinine 1.5 H mg/dL
(0.6-1.0)
Glucose 129 H mg/dl
(70-99)
Total Protein 6.0 L g/dl
(6.3-8.2)
Ur Occult Blood Reflex 1+ A
(Negative)
Leukocyte Esterase Rfl Trace A
(Negative)
02/03/24 17:13
02/03/24 17:13
Vital Signs
Initial and Last Documented VS:
Initial Vital Signs
Temp Pulse Resp BP
98.1 F 98 16 107/69
02/03/24 17:02 02/03/24 17:02 02/03/24 17:02 02/03/24 17:02
Last Documented Vital Signs
Temp Pulse Resp BP Pulse Ox
98.1 F 94 16 108/62 98
02/03/24 17:02 02/03/24 19:29 02/03/24 17:02 02/03/24 22:00 02/03/24 22:01
<Saloni Fuller MD - Last Filed: 02/03/24 22:59>
Orders/Labs/Results
Orders:
Orders
02/03/24 17:13
Type+Screen Urgent
Complete Blood Count/With Diff Urgent
Comprehensive Metabolic Panel Urgent
Lipase Urgent
Comment: ADD ON
02/03/24 19:42
ABO2 Urgent
BBK Wristband Number:
Associate notified that ABO2 has been ordered: [id number]/DARLIN
Date: 02/03/24
Time: 17:38
Feeder Driver ID: [id number]
02/03/24 19:53
CT Abd/pel W Iv And Oral Contr Urgent
Comment:
Reason For Exam: diffuse lower abdominal pain
Iohexol [Omnipaque] See Protocol PO NOW STA
02/03/24 21:06
Ondansetron Injectable [Zofran] 4 mg IV NOW STA
02/03/24 21:07
Add On- LAB Urgent
Tests Added?: lipase
Morphine Sulfate 4 mg IV NOW STA
02/03/24 21:58
Urinalysis Reflex To Culture Urgent
Date Specimen was Collected: 02/03/24
Time Specimen was Collected: 21:55
Urine Microscopic Reflex Cult Urgent
02/03/24 22:50
Lactic Acid Urgent
02/03/24 22:52
C DIFF [C difficile Antigen & Toxins] Urgent
LA NENA Source: Feces/Stool
Specimen Description:
Stool Culture Urgent
LA NENA Source: Feces/Stool
Specimen Description:
Abnormal Lab Results
02/03/24 02/03/24
17:13 21:58
WBC 20.4 H 10^3/uL
(4.8-10.8)
MCH 31.7 H pg
(27.0-31.0)
Abs Immat Gran (auto) 0.1 H 10^3/uL
(0-0.05)
Absolute Neuts (auto) 17.6 H 10^3/uL
(1.4-6.5)
Absolute Monos (auto) 1.3 H 10^3/uL
(0.1-0.6)
Neutrophils % 86.4 H %
(42.2-75.2)
Lymphocytes % 6.5 L %
(20.5-51.1)
Chloride 109 H mmol/L
(98-107)
BUN 31 H mg/dl
(7-17)
Creatinine 1.5 H mg/dL
(0.6-1.0)
Glucose 129 H mg/dl
(70-99)
Total Protein 6.0 L g/dl
(6.3-8.2)
Ur Occult Blood Reflex 1+ A
(Negative)
Leukocyte Esterase Rfl Trace A
(Negative)
02/03/24 17:13
02/03/24 17:13
Vital Signs
Initial and Last Documented VS:
Initial Vital Signs
Temp Pulse Resp BP
98.1 F 98 16 107/69
02/03/24 17:02 02/03/24 17:02 02/03/24 17:02 02/03/24 17:02
Last Documented Vital Signs
Temp Pulse Resp BP Pulse Ox
98.1 F 94 16 108/62 98
02/03/24 17:02 02/03/24 19:29 02/03/24 17:02 02/03/24 22:00 02/03/24 22:01
<Fatuma Lujan PA-C - Last Filed: 02/03/24 23:08>
MDM/Problems Addressed
Differential Diagnosis Includes:
Differentials include diverticulitis, gastroenteritis, bowel obstruction, gastroparesis, colitis
MDM/Problems Addressed:
68-year-old female presents emergency department with concerns of abdominal pain that started last night. She also has nausea and vomiting. She has a known large ventral hernia. On physical exam, she is well-appearing, no acute distress, does
have a soft ventral hernia but does have lower abdominal tenderness to palpation. CBC remarkable for leukocytosis of 20,000, CMP shows elevated BUN to creatinine ratio. CT of the abdomen and pelvis shows marked colitis in the transverse colon,
splenic flexure, and descending colon. Will add on lactic acid as well as stool cultures.
Will refer for admission for further evaluation for colitis. Patient accepted by hospitalist for admission.
<Fatuma Lujan PA-C - Last Filed: 02/03/24 23:08>
*Pulse Oximetry
Patient hypoxic: no
*Critical Care Note
Total Time (30-74mins, 75-104mins- exclusive of procedures): Not Applicable
Data Reviewed
Review of Other/Old Records Reveals: Records (reviewed abdominal CT from 01/06/15) and Discharge Summary (reviewed discharge summary from 01/14/21)
Source: patient and records
ED Attending Note
<Fatuma Lujan PA-C - Last Filed: 02/03/24 23:08>
-
Portions of this chart may have been created with voice recognition software.� Occasional wrong word or��sound alike� substitutions may have occurred due to the inherent limitations of voice recognition software.
<Saloni Fuller MD - Last Filed: 02/03/24 22:59>
ED Attending Note
Patient seen and examined by attending physician: Yes
I performed the substantive portion of visit, reviewed & personally made and approve the management plan that is documented in note by myself or JANETH.: Yes
ED Attending Note:
68-year-old female status post recent course of antibiotics reports 1 week history of profuse nonbloody diarrhea associated with vague abdominal discomfort that started yesterday and continues until today. Pain is mostly across the mid lower
abdomen greater on the left side. She denies associated nausea, vomiting, fever, chills, chest pain, shortness of breath. She admits to taking aspirin recently even though she is aware that this is not recommended given her history of gastric
sleeve in the past. She got particular concerned today because she noted bright red blood when she used the bathroom and thought it was coming from her vagina. She is confident it is not coming from her rectum. Patient noted to have normal
vaginal exam, urine demonstrates hematuria, no blood noted from rectum. Abdomen soft, nonspecific mild tenderness to palpation noted at the left mid and lower quadrant, no rebound or guarding. Large reducible hernia noted. CT consistent with
colitis may be ischemic however consideration for C. difficile given history of, recent antibiotics, and diarrhea. We will send stool samples, admitted for continued supportive care.
Discharge Plan
Departure
Patient Disposition: Admit
Date of Disposition: 02/03/24
Time of Disposition: 23:07
Admit to: Med/Surg
Presentation/result/management discussed w/ accepting MD/DO: Hospitalist
Patient with high blood pressure during this ER visit?: Yes
Condition: Fair
Discharge Problem:
Colitis
Prescriptions:
No Action
bupropion HCl 300 MG tablet extended release 24 hr
300 mg PO DAILY
duloxetine 60 MG capsule,delayed release(DR/EC)
60 mg PO DAILY
polyethylene glycol 3350 17 GRAMS powder in packet
17 grams PO DAILY Qty: 12 0RF
famotidine 40 MG tablet
40 mg PO HS
cyanocobalamin (vitamin B-12) 1,000 MCG tablet
1,000 mcg PO DAILY
omeprazole 40 MG capsule,delayed release(DR/EC)
40 mg PO DAILY
calcium carbonate [Calcium 500] 500 MG tablet,chewable
2 tab PO DAILY
multivitamin Tablet
1 tab PO DAILY
furosemide 40 mg Tablet
40 mg PO DAILY
furosemide 40 mg Tablet
40 mg PO DAILY PRN (Reason: extra dose PRN swelling)
lisinopril 20 mg Tablet
20 mg PO DAILY
phentermine 37.5 mg Tablet
37.5 mg PO DAILY
amoxicillin 500 mg Tablet
500 mg PO TID
meclizine 25 mg Tablet
25 mg PO BID PRN (Reason: vertigo)
levothyroxine 50 mcg Tablet
50 mcg PO DAILY
gabapentin 300 mg Capsule
300 mg PO HS
mupirocin 2 % Ointment
1 applic TOPICAL BID
Excedrin Extra Strength 250-250-65 mg Tablet
2 tab PO PRN PRN (Reason: pain)
rosuvastatin 10 mg Tablet
10 mg PO DAILY
tramadol 300 mg Tablet Extended Release 24 Hr
300 mg PO DAILY
Fiber Gummies 2 gram Tablet,Chewable
4 g PO DAILY
diclofenac-me [id number] 1.5-10-6-3.1 % Kit, Patch, Solution Drops
1 ea TOPICAL PRN PRN (Reason: pain)
Mounjaro 15 mg/0.5 mL Pen Injector
15 mg SC TU
hydrocodone-acetaminophen 10-325 mg Tablet
1 tab PO Q6H PRN (Reason: pain)
BenGay Ointment
1 ea TOPICAL PRN PRN (Reason: pain)
azelastine [Astelin] 137 mcg (0.1 %) Cozad,Non-Aerosol
1 spray INTRANASAL BID PRN (Reason: congestion)
Biofreeze 0.2-3.5 % Gel
1 applic TOPICAL DAILY PRN (Reason: pain)
Referrals:
Dafne Ma DO [Family Provider] -
Interventions
Interventions:
*Risk Screen - Suicide Last Done: 02/03/24 17:07
*General Assessment Last Done: 02/03/24 19:29
*Neglect/Abuse Screening Last Done: 02/03/24 17:07
ED- Fall Risk Assessment Last Done: 02/03/24 19:29
*ED COVID-19 Vaccine History Last Done: 02/03/24 19:29
ED-Female Genitourinary Assessment Last Done: 02/03/24 19:29
Discharge Date and Time
Print Language: WOLOF
[2024-02-03 19:29] VITALS: BMI 36.4
[2024-02-03 19:30] VITALS: BP 127/59
[2024-02-03] MEDS: OMNIPAQUE 50 ML PO (19:59)
[2024-02-03 20:00] VITALS: BP 104/56
[2024-02-03 21:00] VITALS: BP 147/47
[2024-02-03] MEDS: MORPHINE SULFATE 4 MG IV (21:29)
[2024-02-03] MEDS: ZOFRAN 4 MG IV (21:29)
[2024-02-03 21:38] LABS: Lipase 115 U/L (23-300)
[2024-02-03 22:00] VITALS: BP 108/62
[2024-02-03 22:10] LABS: Urine Albumin Negative (Neg - Trace); Urine Bilirubin Negative (Negative); Urine Character Clear (Clear); Urine Color Yellow; Urine Glucose Negative (Negative); Urine Ketone Negative (Negative); Urine Leukocyte Trace (Negative); Urine Nitrite Negative (Negative); Urine Occult Blood 1+ (Negative); Urine Urobilinogen Negative (Neg - 1+)
[2024-02-03 22:27] LABS: Urine Squamous Cell 0-2 /LPF (Few)
[2024-02-03 22:28] LABS: Urine Red Blood Cell 0-2 /HPF (0-2); Urine Urothelial Cell 0-2 /LPF (FEW); Urine White Cell 0-2 /HPF (0-5)
[2024-02-03 23:00] VITALS: BP 130/59
--- NOTE | 2024-02-03 23:10 | HPS.HSE ---
Addendum entered and electronically signed by Tan Odell DO 02/03/24 23:49:
Patient seen and examined independently. Agree with findings and plan as set forth by MITESH Haile.
Patient is a 68y F with PMH significant for hypertension, DM-II and obesity who presents to ED complaining of abdominal pain and diarrhea. Patient reports loose stools for about 10 days - increasing in frequency over the past 1-2 days. She
reports diarrhea overth epa day every hour or so. Small amount of blood noted in the toilet on one occasion only. Crampy lower abdominal pain. No fevers / chills. Pos generalized fatigue, myalgias, headache.
Patient did have URI / sinus symptoms a few weeks ago and was treated with abx at that time.
Ass:
Left Sided Colitis - Likely Infectious
RAHEEL on CKD III
Benign Hypertension
DM-II
Chronic Pain Syndrome
Obesity due to excess calories
Plan:
Admit for further evaluation and treatment.
IV abx with Zosyn for now.
Follow-up stool studies and adjust treatment as needed.
Supportive care, IVFs, etc.
Hold diuretics, antihypertensive meds, etc acutely.
Hold phentermine, Mounjaro, etc.
Continue usual pain regimen including Tramadol ER.
Follow for new / worsening symptoms.
GI evaluation for additional recommendations.
Original Note:
Family Physician
-
Family Physician: Dafne Ma DO
Chief Complaint
-
diarrhea and abdominal pain
History of Present Illness
68-year-old female with a past medical history of cervical cancer status post total hysterectomy, diabetes, hypertension, hypothyroidism presents emergency department today with concerns of abdominal pain.patient stated diarrhea for more than a
week. since the gi she was having diarrhea every one hour. she complained of lower abdominal pain. stated vomited couple times in one week.noticed some blood in the toilet not sure from urine or BM. stated chills. denied fever. stated CROUCH.
she complained of generalized body ache. denied sob. denied dysuria. she took abx few weeks ago for sinus congestion and cough.
CT with colitis. admitting for further management.
Medical History
Past Medical History
Past Medical History: Reports Other
Additional Past Medical History:
fatty liver disease
type 2 DM
hld
depression
lymphedema
asthma
cervical cancer
[place]
vertigo
gerd
hypothyroidism
htn
Past Surgical History: Reports Other
Additional Past Surgical History:
bariatric surgery
ex lap
hysterectomy
oophorectomy
jaw surgery
partial vulvectomy
left shoulder surgery
Social History
Tobacco: Former Smoker
Alcohol: Former
Drug: Former User
Living: Alone
Family History
Family History: Not pertinent
Allergies / Home Medications
Allergies reflects when Allergies were last updated in [employer].
Home Medications with original date entered in [employer]
Allergy/Medication List:
Allergies
Allergy/AdvReac Type Severity Reaction Status Date / Time
capsaicin Allergy Rash Verified 12/06/23 15:13
clindamycin Allergy Nausea / Verified 12/06/23 15:13
Vomiting
Sulfa (Sulfonamide Allergy Itching Verified 12/06/23 15:13
Antibiotics)
Home Medications
bupropion HCl 300 mg 24 hr tablet, extended release 300 mg PO DAILY Mental Health/Anxiety 01/06/15
duloxetine 60 mg capsule,delayed release 60 mg PO DAILY Mental Health/Anxiety 01/06/15
calcium carbonate (Calcium 500) 1,000 mg PO DAILY Supplement 12/19/20
cyanocobalamin (vitamin B-12) 1,000 mcg tablet 1,000 mcg PO DAILY Supplement 12/19/20
famotidine 40 mg tablet 40 mg PO HS Gastrointestinal issue 12/19/20
omeprazole 40 mg capsule,delayed release 40 mg PO DAILY Gastrointestinal issue 12/19/20
azelastine 137 mcg (0.1 %) nasal spray 1 spray intranasal BIDPRN PRN congestion 12/06/23
camphor-menthol 0.2 %-3.5 % topical gel 1 applic topical DAILYPRN PRN topical pain 12/06/23
furosemide 40 mg tablet 40 mg PO DAILY 12/06/23
furosemide 40 mg tablet 40 mg PO DAILYPRN PRN extra dose for swelling 12/06/23
hydrocodone 10 mg-acetaminophen 325 mg tablet 1 tab PO Q6HPRN PRN moderate pain 12/06/23
inulin 2 gram chewable tablet (Fiber Gummies) 4 g PO DAILY 12/06/23
levothyroxine 50 mcg tablet 50 mcg PO DAILY 12/06/23
lisinopril 20 mg tablet 20 mg PO DAILY 12/06/23
multivitamin 1 tab PO DAILY 12/06/23
phentermine 37.5 mg tablet 37.5 mg PO DAILY 12/06/23
rosuvastatin 10 mg tablet 10 mg PO DAILY 12/06/23
tirzepatide 15 mg/0.5 mL subcutaneous pen injector (Mounjaro) 15 mg SC TU 12/06/23
tramadol 300 mg tablet,extended release 24 hr 300 mg PO DAILY pain 12/06/23
Review of Systems
-
Constitutional: Reports No Symptoms
EENT: Reports No Symptoms
Respiratory: Reports No Symptoms
Cardiac: Reports No Symptoms
Abdomen/GI: Reports Abdominal Pain, Nausea, Vomiting and Diarrhea
: Reports No Symptoms
Musculoskeletal: Reports No Symptoms
Skin: Reports No Symptoms
Neurological: Reports No Symptoms
Endocrine: Reports No Symptoms
Hematologic/Lymphatic: Reports No Symptoms
Psych: Reports No Symptoms
Physical Exam
Vital Signs
Vital Signs
Temp Pulse Resp BP Pulse Ox
98.1 F 94 16 108/62 98
02/03/24 17:02 02/03/24 19:29 02/03/24 17:02 02/03/24 22:00 02/03/24 22:01
Physical Exam
General: Well Developed, Well Nourished and No Apparent Distress
HEENT: NormoCephalic, Moist mucous membranes and Atraumatic
Respiratory: Clear
Cardiac: S1/S2 and Regular Rhythm; No Murmur or Rub
GI: Soft, Non Tender, Non Distended and Normal Bowel Sounds; No Organomegaly
Rectal: Deferred by Provider
Musculoskeletal: No Clubbing, No Cyanosis and No Edema
Skin: No Rash
Neuro: AO x 3 and Nonfocal/grossly intact
Psych: Calm
Laboratory Results
-
02/03/24 17:13
02/03/24 17:13
Laboratory Results
Total Bilirubin 0.4 mg/dl (0.2-1.3) 02/03/24 17:13
AST 26 U/L (14-36) 02/03/24 17:13
ALT 18 U/L (0-35) 02/03/24 17:13
Alkaline Phosphatase 76 U/L (38-126) 02/03/24 17:13
Lipase 115 U/L (23-300) 02/03/24 17:13
Data Reviewed
-
CT Scan: Report Reviewed by me
Lab Data: Labs Reviewed by me
Impression/Plan
-
#colitis
-wbc 20.4
-CT abdomen pelvis with findings highly suspicious for MARKED COLITIS of at least the transverse colon, splenic flexure and descending colon. No intestinal obstruction or free air.
-stool culture
-clear liquid diet
-Dilaudid prn for pain
-Zofran prn for n.v
-Zosyn continued
-GI consult
#acute kidney on CKD stage 3a likely dehydration
-c 1.5
-normal saline continued
#anxiety/depression
-Bupropion,duloxetine continued
#chronic pain
-tramadol continued
#essential htn
-lisinopril an furosemide on hold due to RAHEEL
#HLD
-statin continued
#type 2 Dm
-sliding scale
#DVT prophylaxis
-scd
#CODE status
-full code
[2024-02-03 23:22] LABS: Lactic Acid 0.8 mmol/L (0.7-2.0)
[2024-02-04] VITALS (9 sets, daily range): BP systolic 91–124; BP diastolic 44–76; BMI 34.1
--- NOTE | 2024-02-04 02:57 | PTCARENOTE ---
Pt arrived to unit from ED via stretcher 0115. Pr oriented to unit and hospital policies, reports intermediate abdominal cramping. Pt had 2 packs of cigarettes in belongings, reports they are her friends and has not smoked in 37 yrs, they were
removed and placed in pt's drawer. Pt resting in bed @ this time, reports last BM on 02/01 with diarrhea. Pt plasant and cooperative needs reinforcement for safety, callbell within reach
[2024-02-04] MEDS: DILAUDID 0.5 MG IV ×6 (03:06→23:39)
[2024-02-04] MEDS: NSS 1000 IV (03:07)
[2024-02-04 04:03] LABS: TSH Reflex To Free T4 1.34 uIU/ml (0.47-4.68)
[2024-02-04] MEDS: ZOSYN 50 IV (04:17)
[2024-02-04] MEDS: TYLENOL 650 MG PO ×3 (04:27→20:57)
[2024-02-04] MEDS: SYNTHROID 50 MCG PO (05:20)
[2024-02-04 06:43] LABS: Hematocrit 39.2 % (37.0-47.0); Hemoglobin 13.1 g/dL (12.0-16.0); Mean Corp Hgb Conc. 33.4 g/dL (33.0-37.0); Mean Corpuscular Volume 95.8 fL (81.0-99.0); Mean Platelet Volume 10.8 fL (7.4-10.4); Platelet Count 285 10^3/uL (130-400); Red Blood Cell Count 4.09 10^6/uL (4.20-5.40); Red Cell Dist. Width 12.8 % (11.5-14.5); White Blood Cell Count 19.7 10^3/uL (4.8-10.8)
[2024-02-04 07:08] LABS: Blood Urea Nitrogen 27 mg/dl (7-17); Calcium 8.7 mg/dl (8.4-10.2); Carbon Dioxide 24 mmol/L (22-30); Chloride 109 mmol/L (98-107); Estimated Creatinine Clearance 44 ml/min; Glucose 95 mg/dl (70-99); HDL Cholesterol 40 mg/dl; LDL Cholesterol, Calculated 47 mg/dl; Potassium 4.1 mmol/L (3.5-5.1); Sodium 140 mmol/L (135-145); Total Cholesterol 109 mg/dl (50-199); Triglyceride 113 mg/dl (10-149); Very Low Density Lipoprotein 22 mg/dl (0-30); eGFR 45.07
[2024-02-04] MEDS: WELLBUTRIN XL (24 hour extended release) 300 MG PO (07:53)
[2024-02-04] MEDS: CRESTOR 10 MG PO (07:53)
[2024-02-04] MEDS: CYMBALTA DELAYED RELEASE 60 MG PO (07:53)
[2024-02-04 08:44] LABS: Glycohemoglobin (HgbA1c) 4.8 % (4.0-5.6)
--- NOTE | 2024-02-04 09:37 | W.PN.HOSP.TC ---
Today's Communication/Plan
-
Oral vancomycin
Check stool studies
Assessment / Plan
Assessment / Plan
Gen-AAOx3, NAD
HEENT-NC, AT, anicteric, clear oral mm
Neck-supple
CV-reg, no M, +S1/S2
Lungs-clear B/L
Abd-soft, nondistended, mild tenderness without guarding or rebound
Ext-no edema
Musculoskeletal-no cyanosis, clubbing
Skin-warm and dry
Neuro-grossly non-focal
Psych-calm, cooperative
Sepsis due to acute colitis - strong suspicion of C. difficile colitis given history of C. difficile infection 2 years ago. Exposed to 2 course of antibiotics in the past month for reported sinusitis. Start oral vancomycin, check stool studies.
Stop Zosyn. CT scan reviewed. Leukocytosis and low-grade fever noted.
CT notes marked colitis of transverse, splenic flexure, descending colon.
Clear liquid diet. GI consulted.
RAHEEL on CKD 3a -RAHEEL due to volume depletion. Creatinine improving with IV fluids.
Essential hypertension -stable.
Chronic pain syndrome/chronic opiate dependence
Hypothyroidism -levothyroxine.
Hyperlipidemia -rosuvastatin.
Depression
History of cervical cancer
CAL
GERD
Obesity due to excess calories
Full code
Anticipated Discharge: > 48 hours
Subjective/Interval History
-
Date of Service: February 04, 2024
Patient seen and examined. Complaining of abdominal discomfort, diarrhea.
Objective Data
-
Labs:
Laboratory Results
02/04/24
05:23
WBC 19.7 H
Hgb 13.1
Hct 39.2
Plt Count 285
Sodium 140
Potassium 4.1
Chloride 109 H
Carbon Dioxide 24
BUN 27 H
Creatinine 1.3 H
Glucose 95
Calcium 8.7
Vital Signs:
Vital Signs
Temp Pulse Resp BP Pulse Ox
99.7 F 96 18 108/56 94
02/04/24 08:24 02/04/24 08:24 02/04/24 08:24 02/04/24 08:24 02/04/24 08:24
I&O
02/03/24 02/04/24 02/05/24
06:59 06:59 06:59
Intake Total 930 / 930
Balance 930 / 930
Review of Systems
-
History Source: Patient
All other systems: Reviewed and negative
[2024-02-04 09:38] LABS: Glucose - Point of Care 126 mg/dl (70-99)
[2024-02-04] MEDS: 0.45%NACL 1000 IV (09:52)
[2024-02-04] MEDS: FIRVANQ 125 MG PO ×4 (09:56→23:39)
[2024-02-04] MEDS: NSS IV (10:04)
--- NOTE | 2024-02-04 10:09 | CON.GI ---
Addendum entered and electronically signed by Gaudencio Choudhary MD 02/04/24 14:50:
I saw and examined the patient.
The [employer] or PA's note was reviewed and I agree with the note.
Comment: 68-year-old female past medical history as below including history of C. difficile requiring fecal transplant (with ID at [facility]) about 10 years ago presenting with abdominal pain and bloody diarrhea. She was found to have
leukocytosis with white count of 20.4. CT scan was done and showed marked colitis. She recently has been on antibiotics including clindamycin. Most likely suspect she has C. difficile vs another infectious colitis. Patient has concerns that she
was exposed to both rats and mice for the last 2 years at her apartment and actively playing a role and she is very concerned about hantavirus. Unfortunately we do not have testing for hantavirus but we can test for Salmonella which can be
associated with rodent feces and urine which is in the stool culture. C. difficile and stool culture are currently pending. Continue vancomycin for now empirically for suspected C. difficile. Ongoing cramping and fecal incontinence today (unable
to collect stool). Clear liquid diet for now.
Patient previously saw Dr. Harley in our office 04/2022 but missed subsequent follow up.
Original Note:
Consultation
-
Date/Time Consultation Requested: 02/04/24 0134
Date/Time Consultation Performed: 02/04/24 1040
Requesting Provider: Dr Odell
Performing Provider: Dr. Choudhary / Nayana Ramires PA-C
Reason for Consultation: diarrhea, colitis
Medical History
Chief Complaint / HPI
Chief Complaint: diarrhea
History of Present Illness:
This is a 68 year old female with a past medical history of DM, HTN, hypothyroidism, depression, cervical cancer (s/p hysterectomy and b/l oophorectomy), obesity (s/p gastric sleeve surgery 2018, on [facility]), prior h/o C difficile (requiring fecal
transplant, ~10 yrs ago) who presented to the hospital with complaints of abdominal pain and bloody diarrhea. She states diarrhea started 2-3 days prior to presentation to the ER, noted that it first began after she ate shrimp and lobster bisque
from [employer] and then significantly worsened after she ate Thanksgiving dinner. She described seeing red blood in the toilet bowl as well, but notes she was uncertain if this was vaginal, but believes it was occurring with the diarrhea. She did
complain of chills but denies fever, nausea, or vomiting. No recent travel or sick contacts. Of note, she was recently treated with 2 courses of antibiotics for ongoing sinus issues (Amoxicillin, erythromycin) and she has a prior history of C diff,
that failed antibiotic treatment and ultimately required fecal transplant about 10 years ago. She states her last colonoscopy was in 2018 at [place], reportedly normal. Labs on initial ER evaluation as follows: WBC count 20.4, Hgb 13.1, platelets
285. Lactic acid WNL. CT abdomen/pelvis suggests marked colitis of the transverse colon, splenic flexure and descending colon without obstruction or free air. Stool studies have been ordered, pending. She has been started on empiric antibiotics,
initially Zosyn and then switched to oral vancomycin for suspicion for C difficile colitis.
Past Medical History
Past Medical History: Other (DM, HTN, hypothyroidism, obesity ([facility]p [facility] prior h/o C difficile (requiring fecal transplant, ~10 yrs ago), depression, cervical cancer (s/p hysterectomy and b/l oophorectomy),)
Past Surgical History: Other (gastric sleeve (2018), hysterectomy and b/l oophorectomy, left shoulder surgery and jaw surgery)
Social History
Tobacco: Former Smoker
Alcohol: Former
Drug: Former User
Living: Alone
Family History
Family History: Other (mother had pancreatic cancer, otherwise no family history of GI malignancies. +family history of colon polyps)
Allergies / Home Medications
Allergy/AdvReac Type Severity Reaction Status Date / Time
capsaicin Allergy Rash Verified 12/06/23 15:13
clindamycin Allergy Nausea / Verified 12/06/23 15:13
Vomiting
Sulfa (Sulfonamide Allergy Itching Verified 12/06/23 15:13
Antibiotics)
�Medication �Instructions �Recorded
bupropion HCl 300 mg 24 hr tablet, 300 mg PO DAILY Mental 01/06/15
extended release Health/Anxiety
duloxetine 60 mg capsule,delayed 60 mg PO DAILY Mental 01/06/15
release Health/Anxiety
calcium carbonate (Calcium 500) 1,000 mg PO DAILY Supplement 12/19/20
cyanocobalamin (vitamin B-12) 1,000 mcg PO DAILY Supplement 12/19/20
1,000 mcg tablet
famotidine 40 mg tablet 40 mg PO HS Gastrointestinal issue 12/19/20
omeprazole 40 mg capsule,delayed 40 mg PO DAILY Gastrointestinal 12/19/20
release issue
azelastine 137 mcg (0.1 %) nasal 1 spray intranasal BIDPRN PRN 12/06/23
spray congestion
camphor-menthol 0.2 %-3.5 % 1 applic topical DAILYPRN PRN 12/06/23
topical gel topical pain
furosemide 40 mg tablet 40 mg PO DAILY 12/06/23
furosemide 40 mg tablet 40 mg PO DAILYPRN PRN extra dose 12/06/23
for swelling
hydrocodone 10 mg-acetaminophen 1 tab PO Q6HPRN PRN moderate pain 12/06/23
325 mg tablet
inulin 2 gram chewable tablet 4 g PO DAILY 12/06/23
(Fiber Gummies)
levothyroxine 50 mcg tablet 50 mcg PO DAILY 12/06/23
lisinopril 20 mg tablet 20 mg PO DAILY 12/06/23
multivitamin 1 tab PO DAILY 12/06/23
phentermine 37.5 mg tablet 37.5 mg PO DAILY 12/06/23
rosuvastatin 10 mg tablet 10 mg PO DAILY 12/06/23
tirzepatide 15 mg/0.5 mL 15 mg SC TU 12/06/23
subcutaneous pen injector
(Mounjaro)
tramadol 300 mg tablet,extended 300 mg PO DAILY pain 12/06/23
release 24 hr
Review of Systems
-
History Source: Patient
All other systems: A 12 pt ROS was Negative except as stated above in HPI
Vital Signs
Temp Pulse Resp BP Pulse Ox
99.7 F 96 18 108/56 94
02/04/24 08:24 02/04/24 08:24 02/04/24 08:24 02/04/24 08:24 02/04/24 08:24
Physical Exam
Exam
General: Well Developed, Well Nourished and No Apparent Distress
Respiratory: Clear
Cardiac: Regular Rhythm
GI: Soft, Non Tender, Non Distended, Normal Bowel Sounds and Other (obese)
Skin: Warm and Dry
Neuro: AO x 3
Psych: Calm
Results
WBC 19.7 10^3/uL (4.8-10.8) H 02/04/24 05:23
Hgb 13.1 g/dL (12.0-16.0) 02/04/24 05:23
Hct 39.2 % (37.0-47.0) 02/04/24 05:23
MCV 95.8 fL (81.0-99.0) 02/04/24 05:23
Plt Count 285 10^3/uL (130-400) 02/04/24 05:23
Absolute Neuts (auto) 17.6 10^3/uL (1.4-6.5) H 02/03/24 17:13
Sodium 140 mmol/L (135-145) 02/04/24 05:23
Potassium 4.1 mmol/L (3.5-5.1) 02/04/24 05:23
Chloride 109 mmol/L (98-107) H 02/04/24 05:23
Carbon Dioxide 24 mmol/L (22-30) 02/04/24 05:23
BUN 27 mg/dl (7-17) H 02/04/24 05:23
Creatinine 1.3 mg/dL (0.6-1.0) H 02/04/24 05:23
Calcium 8.7 mg/dl (8.4-10.2) 02/04/24 05:23
Total Bilirubin 0.4 mg/dl (0.2-1.3) 02/03/24 17:13
AST 26 U/L (14-36) 02/03/24 17:13
ALT 18 U/L (0-35) 02/03/24 17:13
Alkaline Phosphatase 76 U/L (38-126) 02/03/24 17:13
Lipase 115 U/L (23-300) 02/03/24 17:13
Diagnostic Image Results:
CT Abdomen/Pelvis 02/03/24:
Despite lack of oral contrast opacification of the large bowel, findings highly suspicious for MARKED COLITIS of at least the transverse colon, splenic flexure and descending colon. No intestinal obstruction or free air.
Subcentimeter low-attenuation left renal lesion, too small to characterize.
Prior GI Procedures:
EGD: 2018, [facility] (reportedly normal)
Colonoscopy:
2018, [facility] (reportedly normal)
2012, Dr. Dale
3mm benign sigmoid colon polyp, diverticulosis
Assessment / Plan
-
68 year old female with a past medical history of DM, HTN, hypothyroidism, depression, cervical cancer (s/p hysterectomy and b/l oophorectomy), obesity (s/p gastric sleeve surgery 2018, on Mounjaro), prior h/o C difficile (requiring fecal
transplant, ~10 yrs ago) with recent antibiotic use, admitted for abdominal pain and bloody diarrhea, with leukocytosis and CT findings of marked colitis.
IMPRESSION / PLAN:
Colitis - likely infectious and high suspicion for C difficile
- agree with oral vancomycin
- await stool studies
- initially reported bloody diarrhea, but stable hemoglobin and no further rectal bleeding
- continue clear liquid diet
Further recommendations to follow. Other medical issues managed as per primary medical team.
-
-
Thank you for consultation and allowing me to participate in the patient's care. Please call the sanitation worker GI physician during the after hours with any questions or concerns.
--- NOTE | 2024-02-04 11:34 | CM ---
Reviewed the chart notes and spoke with the patient at the bedside. The patient resides alone in a first floor apartment with one step to enter apartment. The patient reports having a cane and leg brace. The patient has had [facility] in the
past and has been to [facility]. The patient confirmed her pharmacy of choice is the [email or web address]. CM continues to be available to patient/family and is monitoring medical plan for needs at discharge.
Plan: Discharge to home when medically stable. Patient interested in [facility] services. Referral sent via [facility].
[2024-02-04 12:59] LABS: Glucose - Point of Care 125 mg/dl (70-99)
[2024-02-04 16:53] LABS: Glucose - Point of Care 101 mg/dl (70-99)
[2024-02-04 21:49] LABS: Glucose - Point of Care 109 mg/dl (70-99)
[2024-02-05] VITALS (7 sets, daily range): BP systolic 103–133; BP diastolic 53–75; PULSE 84; O2SAT 98
[2024-02-05] MEDS: DILAUDID 0.5 MG IV ×5 (02:37→21:26)
[2024-02-05] MEDS: SYNTHROID 50 MCG PO (06:50)
[2024-02-05 06:55] LABS: % Basophils 0.4 % (0-2); % Immature Granulocytes 0.6 % (0-0.5); % Lymphocytes 10.2 % (20.5-51.1); % Neutrophils 79.8 % (42.2-75.2); Absolute Basophils 0.1 10^3/uL (0-0.2); Absolute Eosinophils 0.2 10^3/uL (0-0.7); Absolute Immature Granulocytes 0.1 10^3/uL (0-0.05); Absolute Lymphocytes 2.1 10^3/uL (1.2-3.4); Absolute Monocytes 1.6 10^3/uL (0.1-0.6); Absolute Neutrophils 16.2 10^3/uL (1.4-6.5); Mean Corp Hgb Conc. 33.3 g/dL (33.0-37.0); Mean Corpuscular Hgb 31.3 pg (27.0-31.0); Mean Platelet Volume 10.8 fL (7.4-10.4); Nucleated Red Blood Cells % 0 %; Platelet Count 236 10^3/uL (130-400); Red Blood Cell Count 3.83 10^6/uL (4.20-5.40); Red Cell Dist. Width 12.7 % (11.5-14.5); White Blood Cell Count 20.4 10^3/uL (4.8-10.8)
[2024-02-05 07:10] LABS: Blood Urea Nitrogen 22 mg/dl (7-17); Calcium 8.7 mg/dl (8.4-10.2); Carbon Dioxide 22 mmol/L (22-30); Chloride 111 mmol/L (98-107); Estimated Creatinine Clearance 52 ml/min; Glucose 81 mg/dl (70-99); Potassium 4.2 mmol/L (3.5-5.1); Sodium 140 mmol/L (135-145); eGFR 55.07
[2024-02-05] MEDS: FIRVANQ 125 MG PO ×3 (07:56→17:27)
[2024-02-05] MEDS: CRESTOR 10 MG PO (07:57)
[2024-02-05] MEDS: WELLBUTRIN XL (24 hour extended release) 300 MG PO (07:57)
[2024-02-05] MEDS: CYMBALTA DELAYED RELEASE 60 MG PO (07:57)
[2024-02-05 08:00] LABS: Glucose - Point of Care 96 mg/dl (70-99)
--- NOTE | 2024-02-05 10:28 | W.PN.GI.CBS2 ---
Today's Communication / Plan
-
stool studies, advance diet, trend labs
Assessment / Plan
-
68-year-old female past medical history as below including history of C. difficile requiring fecal transplant (with ID at [facility]) about 10 years ago presenting with abdominal pain and bloody diarrhea. She was found to have leukocytosis with
white count of 20.4. CT scan was done and showed marked colitis. She recently has been on antibiotics including clindamycin. Most likely suspect she has C. difficile vs another infectious colitis. Patient has concerns that she was exposed to
both rats and mice for the last 2 years at her apartment and actively playing a role and she is very concerned about hantavirus. Unfortunately we do not have testing for hantavirus but we can test for Salmonella which can be associated with rodent
feces and urine which is in the stool culture. C. difficile and stool culture are currently pending. Continue vancomycin for now empirically for suspected C. difficile.
Leukocytosis persists (19-20).
Recommendations:
- stool studies
- continue vancomycin
- advance diet to low residue
Patient previously saw Dr. Harley in our office 04/2022 but missed subsequent follow up.
D/w hospitalist Dr. Rivera
Subjective
Subjective
Date of Service: February 05, 2024
passed one episode of blood
no further BM since episode of incontinence yesterday
Objective
Data Reviewed
Laboratory Data:
Laboratory Results
02/05/24 04:40
02/05/24 04:40
Laboratory Results
Total Bilirubin 0.4 mg/dl (0.2-1.3) 02/03/24 17:13
AST 26 U/L (14-36) 02/03/24 17:13
ALT 18 U/L (0-35) 02/03/24 17:13
Alkaline Phosphatase 76 U/L (38-126) 02/03/24 17:13
Lipase 115 U/L (23-300) 02/03/24 17:13
Vital Signs and I&O:
Vital Signs
Temp Pulse Resp BP Pulse Ox
99.0 F 93 20 128/65 98
02/05/24 07:10 02/05/24 07:10 02/05/24 07:10 02/05/24 07:10 02/05/24 07:10
I&O
02/04/24 02/05/24 02/06/24
06:59 06:59 06:59
Intake Total 930 / 930 1530 / 1530
Balance 930 / 930 1530 / 1530
Physical Exam
Physical Exam
HEENT: Anicteric
Cardiology: Normal Sinus Rhythm
GI: Non Distended, Non Tender and Other (large hernia)
--- NOTE | 2024-02-05 10:37 | W.PN.HOSP.TC ---
Today's Communication/Plan
-
Check stool studies
Continue vancomycin
PT/OT
Assessment / Plan
Assessment / Plan
Gen-AAOx3, NAD
HEENT-NC, AT, anicteric, clear oral mm
Neck-supple
CV-reg, no M, +S1/S2
Lungs-clear B/L
Abd-soft, nondistended, mild tenderness without guarding or rebound
Ext-no edema
Musculoskeletal-no cyanosis, clubbing
Skin-warm and dry
Neuro-grossly non-focal
Psych-calm, cooperative
Sepsis due to acute colitis - strong suspicion of C. difficile colitis given history of C. difficile infection 2 years ago. Exposed to 2 course of antibiotics in the past month for reported sinusitis. Continue oral vancomycin, check stool studies.
CT scan reviewed. Leukocytosis and low-grade fever noted.
CT notes marked colitis of transverse, splenic flexure, descending colon.
Low residue diet as tolerated.
RAHEEL on CKD 3a -RAHEEL due to volume depletion. Creatinine improving with IV fluids.
Essential hypertension -stable.
Chronic pain syndrome/chronic opiate dependence
Hypothyroidism -levothyroxine.
Hyperlipidemia -rosuvastatin.
Depression
History of cervical cancer
Severe osteoarthritis -primarily involving the right knee. Scheduled for knee replacement in March. Consult PT/OT. Continue analgesics.
CAL
GERD
Obesity due to excess calories
Full code
Anticipated Discharge: 24 - 48 hours
Subjective/Interval History
-
Date of Service: February 05, 2024
Patient seen and examined. Complaining of passing blood in her stools. Denies abdominal pain.
Objective Data
-
Labs:
Laboratory Results
02/05/24
04:40
WBC 20.4 H
Hgb 12.0
Hct 36.0 L
Plt Count 236
Sodium 140
Potassium 4.2
Chloride 111 H
Carbon Dioxide 22
BUN 22 H
Creatinine 1.1 H
Glucose 81
Calcium 8.7
Vital Signs:
Vital Signs
Temp Pulse Resp BP Pulse Ox
99.0 F 93 20 128/65 98
02/05/24 07:10 02/05/24 07:10 02/05/24 07:10 02/05/24 07:10 02/05/24 07:10
I&O
02/04/24 02/05/24 02/06/24
06:59 06:59 06:59
Intake Total 930 / 930 1530 / 1530
Balance 930 / 930 1530 / 1530
Review of Systems
-
History Source: Patient
All other systems: Reviewed and negative
[2024-02-05] MEDS: TYLENOL 650 MG PO (11:12)
[2024-02-05 11:56] LABS: Glucose - Point of Care 137 mg/dl (70-99)
[2024-02-05 16:48] LABS: Glucose - Point of Care 111 mg/dl (70-99)
--- NOTE | 2024-02-05 18:29 | PTCARENOTE ---
Patient's family would like consult from delinquency prevention social worker or area agency on ageing regarding patient's living situation which they state is problematic.
[2024-02-05 21:31] LABS: Glucose - Point of Care 112 mg/dl (70-99)
[2024-02-06] MEDS: FIRVANQ 125 MG PO ×5 (00:09→22:57)
[2024-02-06] MEDS: DILAUDID 0.5 MG IV ×4 (00:09→12:21)
[2024-02-06 03:20] VITALS: BP 124/69
--- NOTE | 2024-02-06 06:04 | W.PN.GI.CBS2 ---
Today's Communication / Plan
-
Please see assessment and plan for details.
Assessment / Plan
-
1. Colitis : With significant leukocytosis, and recent antibiotics, with history of C. difficile in the past requiring FMT, clinically consistent with C. difficile, currently clinically improving with less frequent stools, blood, more formed,
benign exam. At this point we will continue empiric treatment for C. difficile, will add probiotics, await final stool studies. She has tolerated diet and given her improvement if labs and symptoms continue to improve then is okay to DC from a GI
standpoint today, completing 2-week course of vancomycin and probiotics. I discussed with her that if she had recurrent symptoms after completing course of antibiotics to touch base with her ID doctor where she had FMT in the past.
Subjective
Subjective
Date of Service: February 06, 2024
Patient feeling better overall, much less frequent, more formed, less blood, no significant abdominal pain, fever or chills.
Objective
Data Reviewed
Laboratory Data:
Laboratory Results
Total Bilirubin 0.4 mg/dl (0.2-1.3) 02/03/24 17:13
AST 26 U/L (14-36) 02/03/24 17:13
ALT 18 U/L (0-35) 02/03/24 17:13
Alkaline Phosphatase 76 U/L (38-126) 02/03/24 17:13
Lipase 115 U/L (23-300) 02/03/24 17:13
Vital Signs and I&O:
Vital Signs
Temp Pulse Resp BP Pulse Ox
98.5 F 95 19 124/69 99
02/06/24 03:20 02/06/24 03:20 02/06/24 03:20 02/06/24 03:20 02/06/24 03:36
I&O
02/04/24 02/05/24 02/06/24
06:59 06:59 06:59
Intake Total 930 / 930 1530 / 1530 650 / 650
Balance 930 / 930 1530 / 1530 650 / 650
Physical Exam
Physical Exam
General: NAD
Abdomen: normal bowel sounds, soft, no tenderness, no masses or bruits, no ascites, hernia
[2024-02-06] MEDS: SYNTHROID 50 MCG PO (06:07)
[2024-02-06 06:43] LABS: % Basophils 0.5 % (0-2); % Eosinophils 1.6 % (0-6); % Immature Granulocytes 0.5 % (0-0.5); % Lymphocytes 15.1 % (20.5-51.1); % Monocytes 7.6 % (1.7-9.3); % Neutrophils 74.7 % (42.2-75.2); Absolute Basophils 0.1 10^3/uL (0-0.2); Absolute Eosinophils 0.2 10^3/uL (0-0.7); Absolute Immature Granulocytes 0.1 10^3/uL (0-0.05); Absolute Lymphocytes 2.2 10^3/uL (1.2-3.4); Absolute Monocytes 1.1 10^3/uL (0.1-0.6); Absolute Neutrophils 10.9 10^3/uL (1.4-6.5); Hematocrit 39.7 % (37.0-47.0); Hemoglobin 13.2 g/dL (12.0-16.0); Mean Corp Hgb Conc. 33.2 g/dL (33.0-37.0); Mean Corpuscular Hgb 31.4 pg (27.0-31.0); Mean Corpuscular Volume 94.3 fL (81.0-99.0); Mean Platelet Volume 10.9 fL (7.4-10.4); Nucleated Red Blood Cells % 0 %; Platelet Count 262 10^3/uL (130-400); Red Blood Cell Count 4.21 10^6/uL (4.20-5.40); Red Cell Dist. Width 12.5 % (11.5-14.5); White Blood Cell Count 14.6 10^3/uL (4.8-10.8)
[2024-02-06 07:01] LABS: Blood Urea Nitrogen 16 mg/dl (7-17); Calcium 9.4 mg/dl (8.4-10.2); Carbon Dioxide 25 mmol/L (22-30); Chloride 109 mmol/L (98-107); Estimated Creatinine Clearance 71 ml/min; Glucose 87 mg/dl (70-99); Potassium 4.9 mmol/L (3.5-5.1); Sodium 141 mmol/L (135-145); eGFR > 60.00
[2024-02-06 07:15] VITALS: BP 132/65
--- NOTE | 2024-02-06 08:32 | W.PN.HOSP.TC ---
Today's Communication/Plan
-
see bold
Assessment / Plan
Assessment / Plan
Sepsis due to acute colitis - strong suspicion of C. difficile colitis given history of C. difficile infection 2 years ago. Exposed to 2 course of antibiotics in the past month for reported sinusitis. Stool studies negative for C. difficile.
Stool cultures pending. Discussed with GI, recommend continuing oral vancomycin due to high index of suspicion for C. difficile. CT notes marked colitis of transverse, splenic flexure, descending colon. Discussed with GI that ischemic colitis
could also be a consideration. GI recommends supportive care, hold off on abdominal/pelvic CTA for now. Low residue diet as tolerated.
RAHEEL on CKD 3a -RAHEEL resolved status post IV fluid
Essential hypertension -stable.
Chronic pain syndrome/chronic opiate dependence
Hypothyroidism -levothyroxine.
Hyperlipidemia -rosuvastatin.
Depression
History of cervical cancer
Severe osteoarthritis -primarily involving the right knee. Scheduled for knee replacement in March. Consult PT/OT. Continue analgesics.
CAL
GERD - resume PPI & pepcid
Obesity due to excess calories
DVT prophylaxis�SCDs secondary to bloody diarrhea
Full Code
Dispo - PT rec HH
Updated sister on phone 02/05
Total time spent to see the patient on the floor, examine the patient, review data and lab results, discuss treatment plan with patient, nursing staff around 51 minutes.
Physical Exam
General: No acute distress
HEENT: Normocephalic, Atraumatic, EOMI, MMM
Respiratory: Clear to Auscultation bilaterally
Cardiac: Normal S1/S2, Regular Rate and Rhythm
GI: Soft, nondistended, mild tenderness without guarding or rebound
Extremities: No Clubbing, Cyanosis, or Edema
Neuro: Nonfocal/Grossly Intact
Psych: Calm, Cooperative
Derm: No Visible lesions
Anticipated Discharge: 24 - 48 hours
Subjective/Interval History
-
Date of Service: February 06, 2024
Patient complains of abdominal pain and dry heaving after having a few bites of breakfast. No fever. No chest pain, no shortness of breath.
Objective Data
-
Labs:
Laboratory Results
02/06/24
06:08
WBC 14.6 H
Hgb 13.2
Hct 39.7
Plt Count 262
Sodium 141
Potassium 4.9
Chloride 109 H
Carbon Dioxide 25
BUN 16
Creatinine 0.8
Glucose 87
Calcium 9.4
Vital Signs:
Vital Signs
Temp Pulse Resp BP Pulse Ox
98.5 F 95 19 124/69 99
02/06/24 03:20 02/06/24 03:20 02/06/24 03:20 02/06/24 03:20 02/06/24 03:36
I&O
02/05/24 02/06/24 02/07/24
06:59 06:59 06:59
Intake Total 1530 / 1530 890 / 890
Balance 1530 / 1530 890 / 890
[2024-02-06] MEDS: CYMBALTA DELAYED RELEASE 60 MG PO (08:36)
[2024-02-06] MEDS: FLORASTOR 250 MG PO (08:36)
[2024-02-06] MEDS: WELLBUTRIN XL (24 hour extended release) 300 MG PO (08:36)
[2024-02-06] MEDS: CRESTOR 10 MG PO (08:36)
[2024-02-06 08:37] LABS: Glucose - Point of Care 93 mg/dl (70-99)
[2024-02-06] MEDS: ZOFRAN 4 MG IV (08:49)
--- NOTE | 2024-02-06 10:59 | CM ---
Addendum entered by Ella Benton 02/06/24 14:02:
tt [facility] liaison to add GL[employer] TU[employer] BENDER to the referral.
Spoke with patient's sister Dr. Monica Ledezma
Original Note:
Patient seen at bedside.
Discussed [facility] - patient agreeable
Referral in [facility] for [facility] - accepted
Notified liaison
PLAN: Discharge when medically stable, Home with [facility]
[2024-02-06 11:05] VITALS: BP 120/63
[2024-02-06 11:33] LABS: Glucose - Point of Care 149 mg/dl (70-99)
[2024-02-06] MEDS: PROTONIX 40 MG PO (12:14)
--- NOTE | 2024-02-06 13:12 | VNURNOTE ---
Home Health Liaison spoke with patient to discuss [facility] nurse/therapy, visits, schedule and homebound status. Patient is agreeable and understands that visits at home will be 2-3 x per week to assess and teach medical management. Patient is aware
that [facility] will contact them for start of care in 1-2 days after discharge from . [facility] referral updated in [facility].
[2024-02-06 13:50] VITALS: BP 110/61; PULSE 90; O2SAT 94
[2024-02-06] MEDS: DILAUDID 4 MG PO ×2 (15:06→22:56)
[2024-02-06 15:10] VITALS: BP 141/67
[2024-02-06] MEDS: 0.45%NACL 500 IV ×2 (15:59→21:35)
[2024-02-06 16:53] LABS: Glucose - Point of Care 116 mg/dl (70-99)
[2024-02-06 21:32] LABS: Glucose - Point of Care 83 mg/dl (70-99)
[2024-02-06] MEDS: PEPCID 40 MG PO (21:35)
[2024-02-06 23:30] VITALS: BP 114/61
[2024-02-07] MEDS: DILAUDID 0.5 MG IV (01:31)
--- NOTE | 2024-02-07 02:40 | PTCARENOTE ---
Pt. had episode loose/liquid brown stool in bathroom, complaining of abdominal cramping throughout. Dilaudid PO given and then IV dose 2.5 hours later (ordered for breakthrough pain) with adequate relief obtained. IVF's finished and capped. Pt.
sleeping.
[2024-02-07] MEDS: DILAUDID 4 MG PO (06:04)
[2024-02-07] MEDS: SYNTHROID 50 MCG PO (06:10)
[2024-02-07] MEDS: FIRVANQ 125 MG PO ×4 (06:14→23:36)
--- NOTE | 2024-02-07 06:22 | W.PN.GI.CBS2 ---
Today's Communication / Plan
-
Please see assessment and plan for details.
Assessment / Plan
-
1. Colitis : With significant leukocytosis, and recent antibiotics, with history of C. difficile in the past requiring FMT, clinically consistent with C. difficile despite negative stool studies, though other etiologies including watershed ischemia
are possible. Clinically she is much improved, her abdomen is completely benign on exam, tolerated diet without difficulty, no bowel movements overnight. She does admit to taking narcotics for other chronic pain issues that she has had over the
years. At this point she is okay to DC from a GI standpoint, would empirically finish 2 weeks of vancomycin given her history of C. difficile and recent antibiotics. Advised her to follow-up with her mat sewer at [facility] for colonoscopy
in 2 months.
We will sign off for now, please call back with any further questions.
Subjective
Subjective
Date of Service: February 07, 2024
Patient feeling okay, no bowel movements overnight, no vomiting, tolerated diet without difficulty, no bleeding.
Objective
Data Reviewed
Laboratory Data:
Laboratory Results
Total Bilirubin 0.4 mg/dl (0.2-1.3) 02/03/24 17:13
AST 26 U/L (14-36) 02/03/24 17:13
ALT 18 U/L (0-35) 02/03/24 17:13
Alkaline Phosphatase 76 U/L (38-126) 02/03/24 17:13
Lipase 115 U/L (23-300) 02/03/24 17:13
Vital Signs and I&O:
Vital Signs
Temp Pulse Resp BP Pulse Ox
98.4 F 86 17 114/61 97
02/06/24 23:30 02/06/24 23:30 02/06/24 23:30 02/06/24 23:30 02/06/24 23:30
I&O
02/05/24 02/06/24 02/07/24
06:59 06:59 06:59
Intake Total 1530 / 1530 890 / 890 0 / 0
Balance 1530 / 1530 890 / 890 0 / 2199
Physical Exam
Physical Exam
General: NAD
Abdomen: normal bowel sounds, soft, no tenderness now, no masses or bruits, no ascites, hernia appreciated
[2024-02-07 06:43] LABS: Hematocrit 37.1 % (37.0-47.0); Hemoglobin 12.1 g/dL (12.0-16.0); Mean Corp Hgb Conc. 32.6 g/dL (33.0-37.0); Mean Corpuscular Hgb 31.1 pg (27.0-31.0); Mean Corpuscular Volume 95.4 fL (81.0-99.0); Mean Platelet Volume 10.6 fL (7.4-10.4); Platelet Count 239 10^3/uL (130-400); Red Blood Cell Count 3.89 10^6/uL (4.20-5.40); Red Cell Dist. Width 12.4 % (11.5-14.5); White Blood Cell Count 9.4 10^3/uL (4.8-10.8)
[2024-02-07 07:15] VITALS: BP 131/67
[2024-02-07 07:15] LABS: ALT (SGPT) 15 U/L (0-35); AST (SGOT) 18 U/L (14-36); Alkaline Phosphatase 92 U/L (38-126); Blood Urea Nitrogen 12 mg/dl (7-17); Carbon Dioxide 27 mmol/L (22-30); Chloride 109 mmol/L (98-107); Estimated Creatinine Clearance 71 ml/min; Glucose 80 mg/dl (70-99); Magnesium 2.2 mg/dl (1.6-2.3); Phosphorus 3.9 mg/dl (2.5-4.5); Potassium 4.7 mmol/L (3.5-5.1); Sodium 143 mmol/L (135-145); Total Bilirubin 0.5 mg/dl (0.2-1.3); Total Protein 5.1 g/dl (6.3-8.2); eGFR > 60.00
[2024-02-07 07:21] LABS: Glucose - Point of Care 94 mg/dl (70-99)
[2024-02-07] MEDS: WELLBUTRIN XL (24 hour extended release) 300 MG PO (08:41)
[2024-02-07] MEDS: CRESTOR 10 MG PO (08:41)
[2024-02-07] MEDS: PROTONIX 40 MG PO (08:41)
[2024-02-07] MEDS: CYMBALTA DELAYED RELEASE 60 MG PO (08:41)
[2024-02-07] MEDS: FLORASTOR 250 MG PO (08:41)
--- NOTE | 2024-02-07 08:45 | W.PN.HOSP.TC ---
Today's Communication/Plan
-
see bold
Assessment / Plan
Assessment / Plan
Sepsis due to acute colitis - strong suspicion of C. difficile colitis given history of C. difficile infection 2 years ago. Exposed to 2 course of antibiotics in the past month for reported sinusitis. Stool studies negative for C. difficile.
Stool cultures pending. Discussed with GI, recommend continuing oral vancomycin for 2 weeks due to high index of suspicion for C. difficile. CT notes marked colitis of transverse, splenic flexure, descending colon. Discussed with GI that ischemic
colitis could also be a consideration. GI recommends supportive care, they have signed off. Low residue diet as tolerated.
RAHEEL on CKD 3a -RAHEEL resolved status post IV fluid
Essential hypertension -stable.
Chronic pain syndrome/chronic opiate dependence
Hypothyroidism -levothyroxine.
Hyperlipidemia -rosuvastatin.
Depression
History of cervical cancer
Severe osteoarthritis -primarily involving the right knee. Scheduled for knee replacement in March. Consult PT/OT. Continue analgesics.
CAL
GERD - resumed PPI & pepcid
Obesity due to excess calories
DVT prophylaxis�SCDs secondary to bloody diarrhea
Full Code
Dispo - PT rec HH
Updated sister on phone 02/05
Total time spent to see the patient on the floor, examine the patient, review data and lab results, discuss treatment plan with patient, nursing staff around 41 minutes.
Physical Exam
General: No acute distress
HEENT: Normocephalic, Atraumatic, EOMI, MMM
Respiratory: Clear to Auscultation bilaterally
Cardiac: Normal S1/S2, Regular Rate and Rhythm
GI: Soft, nondistended, mild tenderness without guarding or rebound
Extremities: No Clubbing, Cyanosis, or Edema
Neuro: Nonfocal/Grossly Intact
Psych: Calm, Cooperative
Anticipated Discharge: Within 24 hours
Subjective/Interval History
-
Date of Service: February 07, 2024
Patient complains of lower abdominal pain, 7 out of 10 in intensity, worse with food. No fever, no vomiting.
Objective Data
-
Labs:
Laboratory Results
02/07/24
05:40
WBC 9.4
Hgb 12.1
Hct 37.1
Plt Count 239
Sodium 143
Potassium 4.7
Chloride 109 H
Carbon Dioxide 27
BUN 12
Creatinine 0.8
Glucose 80
Calcium 9.0
Total Bilirubin 0.5
AST 18
ALT 15
Alkaline Phosphatase 92
Vital Signs:
Vital Signs
Temp Pulse Resp BP Pulse Ox
98.4 F 89 17 131/67 95
02/07/24 07:15 02/07/24 07:15 02/07/24 07:15 02/07/24 07:15 02/07/24 07:15
I&O
02/06/24 02/07/24 02/08/24
06:59 06:59 06:59
Intake Total 890 / 890 2200 / 2200
Balance 890 / 890 2200 / 2200
[2024-02-07] MEDS: TYLENOL 650 MG PO ×2 (10:09→20:51)
[2024-02-07] MEDS: DILAUDID 2 MG PO ×3 (10:10→21:48)
--- NOTE | 2024-02-07 10:54 | CM ---
Patient seen bedside.
Patient stated she does not feel well today.
IMM completed.
Home with [facility] once medically stable.
Patient drove herself to the hospital and plans on driving herself home.
Plan: home with [facility] once medically stable.
[2024-02-07 12:24] LABS: Glucose - Point of Care 110 mg/dl (70-99)
[2024-02-07 15:20] VITALS: BP 123/67
[2024-02-07 17:10] LABS: Glucose - Point of Care 93 mg/dl (70-99)
[2024-02-07 19:09] VITALS: BP 145/74
[2024-02-07] MEDS: PEPCID 40 MG PO (21:23)
[2024-02-07 22:29] LABS: Glucose - Point of Care 73 mg/dl (70-99)
[2024-02-07 23:07] VITALS: BP 116/61
[2024-02-08] MEDS: DILAUDID 2 MG PO (04:07)
[2024-02-08 05:18] VITALS: BMI 34.9
[2024-02-08] MEDS: FIRVANQ 125 MG PO (05:50)
[2024-02-08] MEDS: SYNTHROID 50 MCG PO (05:50)
[2024-02-08] MEDS: TYLENOL 650 MG PO (06:20)
[2024-02-08 07:15] LABS: Hematocrit 37.6 % (37.0-47.0); Hemoglobin 12.5 g/dL (12.0-16.0); Mean Corp Hgb Conc. 33.2 g/dL (33.0-37.0); Mean Corpuscular Hgb 31.2 pg (27.0-31.0); Mean Corpuscular Volume 93.8 fL (81.0-99.0); Mean Platelet Volume 10.5 fL (7.4-10.4); Platelet Count 264 10^3/uL (130-400); Red Blood Cell Count 4.01 10^6/uL (4.20-5.40); Red Cell Dist. Width 12.2 % (11.5-14.5)
[2024-02-08 07:38] LABS: Blood Urea Nitrogen 10 mg/dl (7-17); Calcium 8.9 mg/dl (8.4-10.2); Carbon Dioxide 27 mmol/L (22-30); Chloride 108 mmol/L (98-107); Estimated Creatinine Clearance 72 ml/min; Glucose 84 mg/dl (70-99); Potassium 5.1 mmol/L (3.5-5.1); Sodium 143 mmol/L (135-145); eGFR > 60.00
[2024-02-08 07:38] LABS: Glucose - Point of Care 97 mg/dl (70-99)
[2024-02-08 08:35] VITALS: BP 111/70
--- NOTE | 2024-02-08 08:39 | W.PN.HOSP.TC ---
Today's Communication/Plan
-
Discharge today
Assessment / Plan
Assessment / Plan
Sepsis due to acute colitis - strong suspicion of C. difficile colitis given history of C. difficile infection 2 years ago. Exposed to 2 course of antibiotics in the past month for reported sinusitis. Stool studies negative for C. difficile.
Stool cultures pending. Discussed with GI, recommend continuing oral vancomycin for 2 weeks due to high index of suspicion for C. difficile. CT notes marked colitis of transverse, splenic flexure, descending colon. Discussed with GI that ischemic
colitis could also be a consideration. GI recommends supportive care, they have signed off. Tolerating low residue diet. Medically stable for discharge on vancomycin to complete a 14-day course. Follow-up with PCP in 1 week.
RAHEEL on CKD 3a -RAHEEL resolved status post IV fluid
Essential hypertension -stable.
Chronic pain syndrome/chronic opiate dependence
Hypothyroidism -levothyroxine.
Hyperlipidemia -rosuvastatin.
Depression
History of cervical cancer
Severe osteoarthritis -primarily involving the right knee. Scheduled for knee replacement in March. Consult PT/OT. Continue analgesics.
CAL
GERD - resumed PPI & pepcid
Obesity due to excess calories
DVT prophylaxis�SCDs secondary to bloody diarrhea
Full Code
Dispo - PT rec HH
Updated sister on phone 02/07
Physical Exam
General: No acute distress
HEENT: Normocephalic, Atraumatic, EOMI, MMM
Respiratory: Clear to Auscultation bilaterally
Cardiac: Normal S1/S2, Regular Rate and Rhythm
GI: Soft, nondistended, mild tenderness without guarding or rebound
Extremities: No Clubbing, Cyanosis, or Edema
Neuro: Nonfocal/Grossly Intact
Psych: Calm, Cooperative
Anticipated Discharge: Today
Subjective/Interval History
-
Date of Service: February 08, 2024
Feels better, abd pain improved. Tolerating diet. Had 1 loose stool. No fever, no vomiting.
Objective Data
-
Labs:
Laboratory Results
02/08/24
06:08
WBC 9.0
Hgb 12.5
Hct 37.6
Plt Count 264
Sodium 143
Potassium 5.1
Chloride 108 H
Carbon Dioxide 27
BUN 10
Creatinine 0.8
Glucose 84
Calcium 8.9
Vital Signs:
Vital Signs
Temp Pulse Resp BP Pulse Ox
98.7 F 86 18 111/70 98
02/08/24 08:35 02/08/24 08:35 02/08/24 08:35 02/08/24 08:35 02/08/24 08:35
I&O
02/07/24 02/08/24 02/09/24
06:59 06:59 06:59
Intake Total 2200 / 2200 840 / 840
Balance 2200 / 2200 840 / 840
[2024-02-08] MEDS: CYMBALTA DELAYED RELEASE 60 MG PO (08:52)
[2024-02-08] MEDS: PROTONIX 40 MG PO (08:52)
[2024-02-08] MEDS: FLORASTOR 250 MG PO (08:52)
[2024-02-08] MEDS: CRESTOR 10 MG PO (08:52)
[2024-02-08] MEDS: WELLBUTRIN XL (24 hour extended release) 300 MG PO (08:53)
--- NOTE | 2024-02-08 11:39 | CM ---
Patient discharge today.
[facility] liaison notified.
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
PLAN: home, with [facility]
transporting self home-drove to hospital
--- NOTE | 2024-02-08 17:12 | W.DCSUMMARY ---
Discharge Summary
Discharge Data
Date of Admission: 02/03/24
Date of Discharge: 02/08/24
-
Pending Results: No
Hospital Course
Discharge diagnosis:
Sepsis
Acute colitis, with strong suspicion for C. difficile colitis
Acute kidney injury superimposed on stage IIIa chronic kidney disease
Essential hypertension
Chronic pain syndrome on opioids with dependency
Gastroesophageal reflux disease
Obstructive sleep apnea
Hypothyroidism
Hyperlipidemia
Depression
Osteoarthritis
History of cervical cancer
Obesity due to excess calories
Consults: GI
CT abdomen pelvis:
Despite lack of oral contrast opacification of the large bowel, findings highly suspicious for MARKED COLITIS of at least the transverse colon, splenic flexure and descending colon. No intestinal obstruction or free air.
Hospital course:
68-year-old female with a past medical history of C. difficile requiring fecal transplant (with ID at [facility]) about 10 years ago, presented with abdominal pain and bloody diarrhea. She was found to have leukocytosis with white count of 20.4.
CT scan was done and showed marked colitis. She recently has been on antibiotics including clindamycin.
Patient was seen in conjunction with GI, who suspects she has C. difficile colitis. She was treated with oral vancomycin. Her leukocytosis resolved, her diarrhea improved. Her stool studies were negative for C. difficile, negative for Salmonella,
Shigella, Campylobacter. Even though she was negative for C. difficile, GI recommends continuing oral vancomycin to complete a 14-day course since she improved with treatment.
Patient also had acute kidney injury superimposed on chronic kidney disease, this is due to dehydration. She received IV fluids, and her creatinine normalized.
Patient is medically stable and cleared by GI for discharge. She needs to continue oral vancomycin to complete a 14-day course. She also needs to follow-up with her primary care doctor in 1 week.
Disposition: Home with home care
Discharge planning: Required 41 minutes
Discharge Plan
-
Patient Disposition: Home with Home Care
Discharge Diagnosis/Procedures: Acute colitis, suspect secondary to C. difficile, chronic pain syndrome on opioids
Condition: Fair
Diet: Low Fiber
Activity: As tolerated
Driving Restrictions: As prior to admission
Referrals:
Dafne Ma DO [Family Provider] - in one week
Prescriptions:
New
Saccharomyces boulardii 250 mg Capsule
250 mg PO DAILY 30 Days Qty: 30 0RF
vancomycin 125 mg capsule
125 mg PO QID 10 Days Qty: 40 0RF
Continued
bupropion HCl 300 MG tablet extended release 24 hr
300 mg PO DAILY
duloxetine 60 MG capsule,delayed release(DR/EC)
60 mg PO DAILY
famotidine 40 MG tablet
40 mg PO HS
cyanocobalamin (vitamin B-12) 1,000 MCG tablet
1,000 mcg PO DAILY
omeprazole 40 MG capsule,delayed release(DR/EC)
40 mg PO DAILY
calcium carbonate [Calcium 500] 500 MG tablet,chewable
1,000 mg PO DAILY
multivitamin Tablet
1 tab PO DAILY
furosemide 40 mg Tablet
40 mg PO DAILYPRN PRN (Reason: extra dose for swelling)
lisinopril 20 mg Tablet
20 mg PO DAILY
levothyroxine 50 mcg Tablet
50 mcg PO DAILY
rosuvastatin 10 mg Tablet
10 mg PO DAILY
tramadol 300 mg Tablet Extended Release 24 Hr
300 mg PO DAILY
Fiber Gummies 2 gram Tablet,Chewable
4 g PO DAILY
Mounjaro 15 mg/0.5 mL Pen Injector
15 mg SC TU
hydrocodone-acetaminophen 10-325 mg Tablet
1 tab PO Q6HPRN PRN (Reason: moderate pain)
azelastine 137 mcg (0.1 %) [place],Non-Aerosol
1 spray INTRANASAL BIDPRN PRN (Reason: congestion)
camphor-menthol 0.2-3.5 % Gel
1 applic TOPICAL DAILYPRN PRN (Reason: topical pain)
Held
furosemide 40 mg Tablet
40 mg PO DAILY
Hold Instructions: Resume on 02/11/24.
phentermine 37.5 mg Tablet
37.5 mg PO DAILY
Hold Instructions: Resume on 02/22/24.
Discharge Orders:
Discharge Patient (As Directed); Ordered 02/08/24
Ordered By: Camilo Levy
Discharge Date and Time
Discharge Date/Time: 02/08/24 11:37
Print Language: LITHUANIAN
== END 2024-02-08 11:37 | disposition home health service (06) | DRG 872 ==
LOC: 2 NORTH 23:51
PROVIDERS: Hospitalist; Physician Assistant; Student in an Organized Health Care Education/Training Program; ADMITTING PHYSICIAN Hospitalist; ATTENDING PHYSICIAN Family Medicine; CONSULT PHYSICIAN Internal Medicine Gastroenterology; EMERGENCY PHYSICIAN Emergency Medicine; FAMILY PHYSICIAN Internal Medicine
DX: A41.9 Sepsis, unspecified organism (principal); A04.72 Enterocolitis due to Clostridium difficile, not specified as recurrent; N17.9 Acute kidney failure, unspecified; F11.20 Opioid dependence, uncomplicated; N18.31 Chronic kidney disease, stage 3a; I12.9 Hypertensive chronic kidney disease with stage 1 through stage 4 chronic kidney disease, or unspecified chronic kidney disease; G89.4 Chronic pain syndrome; K21.9 Gastro-esophageal reflux disease without esophagitis; G47.33 Obstructive sleep apnea (adult) (pediatric); E03.9 Hypothyroidism, unspecified; E78.00 Pure hypercholesterolemia, unspecified; F32.A Depression, unspecified; M19.90 Unspecified osteoarthritis, unspecified site; Z85.41 Personal history of malignant neoplasm of cervix uteri; E66.09 Other obesity due to excess calories; Z68.34 Body mass index [BMI] 34.0-34.9, adult; E11.22 Type 2 diabetes mellitus with diabetic chronic kidney disease; J45.909 Unspecified asthma, uncomplicated; K76.0 Fatty (change of) liver, not elsewhere classified; I89.0 Lymphedema, not elsewhere classified; Z87.891 Personal history of nicotine dependence; Z90.710 Acquired absence of both cervix and uterus; Z90.722 Acquired absence of ovaries, bilateral; Z98.84 Bariatric surgery status; Z96.653 Presence of artificial knee joint, bilateral; Z88.2 Allergy status to sulfonamides; Z88.1 Allergy status to other antibiotic agents; Z79.890 Hormone replacement therapy; F41.9 Anxiety disorder, unspecified; Z80.0 Family history of malignant neoplasm of digestive organs; Z83.719 Family history of colon polyps, unspecified; Z88.8 Allergy status to other drugs, medicaments and biological substances; Z79.899 Other long term (current) drug therapy; E86.0 Dehydration
CPT/HCPCS: 74177; 80048; 80053; 80061; 81003; 81015; 82962; 83036; 83605; 83690; 83735; 84100; 84443; 85025; 85027; 86850; 86900; 86901; 87045; 87046; 87077; 87324; 87427; 87449; 89055; 96374; 96375; 97110; 97116; 97162; 97165; 99285; Q9967

== ENCOUNTER 2024-03-15 08:15 | Inpatient (IN) | payer MEDICARE, OTHER, SELFPAY ==
[2024-03-01 11:31] LABS: Hematocrit 40.9 % (37.0-47.0); Hemoglobin 13.3 g/dL (12.0-16.0); Mean Corp Hgb Conc. 32.5 g/dL (33.0-37.0); Mean Corpuscular Hgb 31.2 pg (27.0-31.0); Platelet Count 366 10^3/uL (130-400); Red Blood Cell Count 4.26 10^6/uL (4.20-5.40); Red Cell Dist. Width 13.3 % (11.5-14.5); White Blood Cell Count 7.2 10^3/uL (4.8-10.8)
[2024-03-01 11:59] LABS: ALT (SGPT) 17 U/L (0-35); AST (SGOT) 24 U/L (14-36); Albumin 3.5 g/dl (3.5-5.0); Alkaline Phosphatase 80 U/L (38-126); Blood Urea Nitrogen 17 mg/dl (7-17); Calcium 9.1 mg/dl (8.4-10.2); Carbon Dioxide 33 mmol/L (22-30); Chloride 103 mmol/L (98-107); Glucose 85 mg/dl (70-99); Potassium 4.5 mmol/L (3.5-5.1); Sodium 138 mmol/L (135-145); Total Bilirubin 0.4 mg/dl (0.2-1.3); Total Protein 5.7 g/dl (6.3-8.2); eGFR 55.07
[2024-03-01 13:15] VITALS: BMI 33.5
[2024-03-15] VITALS (19 sets, daily range): BP systolic 93–157; BP diastolic 44–118
[2024-03-15] MEDS: MOBIC 15 MG PO (08:57)
[2024-03-15] MEDS: NORMOSOL-R/PLASMALYTE-A 1000 IV ×2 (09:06→17:23)
[2024-03-15 09:11] LABS: Glucose - Point of Care 87 mg/dl (70-99)
[2024-03-15 12:57] LABS: Glucose - Point of Care 81 mg/dl (70-99)
--- NOTE | 2024-03-15 13:09 | W.DS.TRANS ---
Addendum entered and electronically signed by Gisele Amos PA-C 03/16/24 10:29:
decrease aspirin to 81mg daily
Original Note:
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
-
Discharge Instructions:
Discharge Diagnosis/Procedures R TKA Dr. Landrum 03/15/24
Diet As tolerated
Activity With Walker,With assistance
Driving Restrictions No driving
Other Services PT,OT,VN
Instructions:
Stand-Alone Forms: Total Hip/Knee Replacement D/C
Changes to Home Medications: Yes
Discharge Medications:
DC Medications w/original date entered in [facility]
bupropion HCl 300 mg 24 hr tablet, extended release 300 mg PO DAILY Mental Health/Anxiety 01/06/15
duloxetine 60 mg capsule,delayed release 60 mg PO DAILY Mental Health/Anxiety 01/06/15
calcium carbonate (Calcium 500) 1,000 mg PO DAILY Supplement 12/19/20
cyanocobalamin (vitamin B-12) 1,000 mcg tablet 1,000 mcg PO DAILY Supplement 12/19/20
famotidine 40 mg tablet 40 mg PO HS Gastrointestinal issue 12/19/20
omeprazole 40 mg capsule,delayed release 40 mg PO DAILY Gastrointestinal issue 12/19/20
azelastine 137 mcg (0.1 %) nasal spray 1 spray intranasal BIDPRN PRN congestion 12/06/23
camphor-menthol 0.2 %-3.5 % topical gel 1 applic topical DAILYPRN PRN topical pain 12/06/23
furosemide 40 mg tablet 40 mg PO DAILY 12/06/23
furosemide 40 mg tablet 40 mg PO DAILYPRN PRN extra dose for swelling 12/06/23
hydrocodone 10 mg-acetaminophen 325 mg tablet 1 tab PO Q6HPRN PRN moderate pain 12/06/23
inulin 2 gram chewable tablet (Fiber Gummies) 4 g PO DAILY 12/06/23
levothyroxine 50 mcg tablet 50 mcg PO DAILY 12/06/23
multivitamin 1 tab PO DAILY 12/06/23
phentermine 37.5 mg tablet 15 mg PO DAILY 12/06/23
rosuvastatin 10 mg tablet 10 mg PO DAILY 12/06/23
tirzepatide 15 mg/0.5 mL subcutaneous pen injector (Mounjaro) 15 mg SC TH 12/06/23
tramadol 300 mg tablet,extended release 24 hr 300 mg PO DAILY pain 12/06/23
[place] 1 tab PO BID 02/27/24
mupirocin 2 % topical ointment 1 applic topical BID 02/27/24
acetaminophen 500 mg tablet 1,000 mg (2 x 500 mg) PO QID #0 tabs 03/15/24
aspirin 325 mg tablet 325 mg PO DAILY blood clot prevention #1 tab 03/15/24
docusate sodium 100 mg capsule (Colace) 100 mg PO BID stool softner #1 cap 03/15/24
gabapentin 300 mg capsule 300 mg PO HS 03/15/24
magnesium hydroxide 400 mg/5 mL oral suspension (Milk of Magnesia) 30 ml PO HS PRN Constipation #1 mL 03/15/24
meclizine 25 mg tablet 25 mg PO DAILY PRN veritgo 03/15/24
sennosides 8.6 mg tablet (Senokot) 17.2 mg (2 x 8.6 mg) PO BID laxative #2 tabs 03/15/24
Home Medication Changes
mupirocin 2 % topical ointment 1 applic topical BID 02/27/24
acetaminophen 500 mg tablet 1,000 mg (2 x 500 mg) PO QID #0 tabs 03/15/24
aspirin 325 mg tablet 325 mg PO DAILY blood clot prevention #1 tab 03/15/24
docusate sodium 100 mg capsule (Colace) 100 mg PO BID stool softner #1 cap 03/15/24
gabapentin 300 mg capsule 300 mg PO HS 03/15/24
magnesium hydroxide 400 mg/5 mL oral suspension (Milk of Magnesia) 30 ml PO HS PRN Constipation #1 mL 03/15/24
meclizine 25 mg tablet 25 mg PO DAILY PRN veritgo 03/15/24
sennosides 8.6 mg tablet (Senokot) 17.2 mg (2 x 8.6 mg) PO BID laxative #2 tabs 03/15/24
Pending Results: No
[2024-03-15] MEDS: DILAUDID 0.5 MG IV ×4 (13:27→20:24)
[2024-03-15] MEDS: CYMBALTA DELAYED RELEASE 60 MG PO (14:12)
[2024-03-15] MEDS: CRESTOR 10 MG PO (14:13)
[2024-03-15] MEDS: WELLBUTRIN XL (24 hour extended release) 300 MG PO (14:13)
[2024-03-15] MEDS: NORCO 7.5/325 2 TABLET PO (14:14)
[2024-03-15] MEDS: ULTRAM 50 MG PO ×3 (14:23→22:43)
[2024-03-15] MEDS: TYLENOL 650 MG PO ×2 (17:22→20:03)
[2024-03-15] MEDS: ANCEF 5 IV (17:22)
[2024-03-15] MEDS: LOW STRENGTH ASPIRIN 81 MG PO ×2 (17:23→20:03)
[2024-03-15] MEDS: PROTONIX 40 MG PO (20:03)
[2024-03-15] MEDS: LYRICA 75 MG PO (20:03)
[2024-03-15] MEDS: FLORASTOR 250 MG PO (20:03)
[2024-03-15] MEDS: SENOKOT 17.2 MG PO (20:04)
[2024-03-15] MEDS: COLACE 100 MG PO (20:04)
[2024-03-15] MEDS: DECADRON 6 MG IV (20:04)
[2024-03-15] MEDS: BACTROBAN 2% OINTMENT 1 APPLIC NASAL (22:42)
[2024-03-15] MEDS: PEPCID 20 MG PO (22:43)
[2024-03-16] MEDS: TYLENOL PO ×3 (01:00→12:32)
[2024-03-16] MEDS: ANCEF 5 IV (01:02)
--- NOTE | 2024-03-16 02:12 | PTCARENOTE ---
Pt ambulated to toilet w assist x1 and RW without incident. Assessment ongoing.
[2024-03-16] MEDS: SYNTHROID 50 MCG PO (05:10)
[2024-03-16] MEDS: NORCO 7.5/325 2 TABLET PO ×3 (05:22→21:28)
[2024-03-16 07:00] VITALS: BP 117/71
[2024-03-16 07:18] LABS: Hemoglobin 11.9 g/dL (12.0-16.0)
--- NOTE | 2024-03-16 07:24 | W.PN.ORTHO ---
Today's Communication / Plan
-
Patient will require rehab/snf. Lives alone and family working on home environment to make it safe when stable after rehab.
Assessment
.
Distal Motor Intact: Yes
Dressing:
Clean, dry and intact.
Assessment:
Stable postop
Plan
.
Surgery / Date: 03/15/2024
DVT Prophylaxis: Aspirin
Activity:
Out of bed.
PT/OT
Discharge Plan: Rehab
Subjective
.
.:
Patient resting comfortably. Getting OOB this AM. Complains of pain
Vital Signs and Labs
.
Vital Signs and Labs:
Lab Results
03/16/24 05:50
Temp Pulse Resp BP Pulse Ox
98.4 F 84 18 133/91 95
03/15/24 23:35 03/15/24 23:35 03/15/24 23:35 03/15/24 23:35 03/15/24 23:35
Non-invasive Hgb result: 12
Physical Exam
-
Pulm: nonlabored
CV: regular
RLE: Dressing with bloody drainage. No active bleeding and dressing replaced. Able to fully extend and SLR.
[2024-03-16 07:36] LABS: Blood Urea Nitrogen 25 mg/dl (7-17); Calcium 8.4 mg/dl (8.4-10.2); Carbon Dioxide 28 mmol/L (22-30); Chloride 103 mmol/L (98-107); Estimated Creatinine Clearance 55 ml/min; Glucose 130 mg/dl (70-99); Potassium 4.9 mmol/L (3.5-5.1); Sodium 138 mmol/L (135-145); eGFR > 60.00
[2024-03-16] MEDS: SENOKOT 17.2 MG PO ×2 (08:17→20:00)
[2024-03-16] MEDS: CYMBALTA DELAYED RELEASE 60 MG PO (08:17)
[2024-03-16] MEDS: LASIX 20 MG PO (08:17)
[2024-03-16] MEDS: WELLBUTRIN XL (24 hour extended release) 300 MG PO (08:17)
[2024-03-16] MEDS: COLACE 100 MG PO ×2 (08:17→20:00)
[2024-03-16] MEDS: BACTROBAN 2% OINTMENT 1 APPLIC NASAL ×2 (08:17→20:09)
[2024-03-16] MEDS: LYRICA 75 MG PO ×2 (08:17→20:00)
[2024-03-16] MEDS: CRESTOR 10 MG PO (08:17)
[2024-03-16] MEDS: ULTRAM 50 MG PO ×5 (08:17→23:09)
[2024-03-16] MEDS: PROTONIX 40 MG PO (08:17)
[2024-03-16] MEDS: TYLENOL 650 MG PO ×3 (08:17→20:01)
[2024-03-16] MEDS: LOW STRENGTH ASPIRIN 81 MG PO (08:18)
[2024-03-16] MEDS: FLORASTOR 250 MG PO ×2 (08:18→20:00)
[2024-03-16] MEDS: DECADRON 6 MG IV ×2 (08:18→20:00)
--- NOTE | 2024-03-16 10:24 | W.PN.ORTHO ---
Today's Communication / Plan
-
d/c when stable
Assessment
.
Distal Motor Intact: Yes
Dressing:
Clean, dry and intact.
Assessment:
Recent lower GIB due to colitis-hgb improved-decrease asa to 81mg daily and avoid NSADs--patient has purchased SCD device
Recent renal impairmnent now recovered--check BMP and avoid nephrotoxins
Plan
.
Surgery / Date: R PALOMA Landrum 03/15/24
DVT Prophylaxis: Aspirin (81mg daily + SCD)
Activity:
Out of bed.
PT/OT
Discharge Plan: SNF
Subjective
.
.:
Patient resting comfortably.
Vital Signs and Labs
.
Vital Signs and Labs:
Lab Results
03/16/24 05:50
03/16/24 05:50
Temp Pulse Resp BP Pulse Ox
98.5 F 87 18 117/71 96
03/16/24 07:00 03/16/24 07:00 03/16/24 07:00 03/16/24 07:00 03/16/24 07:00
Non-invasive Hgb result: 12
Physical Exam
-
HEENT: No pallor, cyanosis, or jaundice. Throat clear.
NECK: Supple. No JVD.
RESPIRATORY: Lungs clear to auscultation.
CVS: S1, S2 normal. RRR.� No murmur, rub or gallop.
ABDOMEN: Soft, non-tender. No distension. BS+/normal.
EXTREMITIES: strength equal, no calf pain with palpation
DEPARTMENT SUPERVISOR: AOx3. No focal deficits. civil cad designer grossly intact
[2024-03-16 10:45] VITALS: PULSE 88; O2SAT 96
[2024-03-16 11:58] LABS: Blood Urea Nitrogen 29 mg/dl (7-17); Calcium 8.4 mg/dl (8.4-10.2); Carbon Dioxide 26 mmol/L (22-30); Chloride 103 mmol/L (98-107); Estimated Creatinine Clearance 55 ml/min; Glucose 124 mg/dl (70-99); Sodium 136 mmol/L (135-145); eGFR > 60.00
[2024-03-16 15:00] VITALS: BP 92/55
--- NOTE | 2024-03-16 16:09 | CM ---
Patient met at bedside with sister.
IA completed
Lives alone in an apartment, no steps
PLOF: ambulated with cane
DME: walker, cane
Current with [facility]/Has been at [facility] in past
Patient would like to go to [facility]
Referrals added for [facility] in [place] & [facility]
Discussed [facility] waiver which she is eligible - and facilities that participate-faxed note to [facility], [place] [phone]
PCP: Dafne Ma
Pharmacy: [facility]
PLAN: SNF, pending bed availability
[2024-03-16] MEDS: PEPCID 20 MG PO (23:10)
[2024-03-16 23:14] VITALS: BP 132/76
[2024-03-17 03:25] VITALS: BP 146/75
[2024-03-17] MEDS: TYLENOL PO ×6 (04:01→20:47)
[2024-03-17] MEDS: NORCO 7.5/325 2 TABLET PO ×3 (04:25→17:37)
[2024-03-17] MEDS: SYNTHROID 50 MCG PO (06:04)
[2024-03-17 07:22] VITALS: BP 117/60
[2024-03-17] MEDS: CYMBALTA DELAYED RELEASE 60 MG PO (08:03)
[2024-03-17] MEDS: WELLBUTRIN XL (24 hour extended release) 300 MG PO (08:03)
[2024-03-17] MEDS: PROTONIX 40 MG PO (08:04)
[2024-03-17] MEDS: CRESTOR 10 MG PO (08:04)
[2024-03-17] MEDS: FLORASTOR 250 MG PO ×2 (08:04→20:42)
[2024-03-17] MEDS: ULTRAM 50 MG PO ×4 (08:05→21:34)
[2024-03-17] MEDS: SENOKOT 17.2 MG PO ×2 (08:05→20:42)
[2024-03-17] MEDS: COLACE 100 MG PO ×2 (08:06→20:42)
[2024-03-17] MEDS: LASIX 20 MG PO (08:06)
[2024-03-17] MEDS: LOW STRENGTH ASPIRIN 81 MG PO (08:06)
[2024-03-17] MEDS: LYRICA 75 MG PO ×2 (08:06→20:42)
[2024-03-17 09:10] VITALS: BP 125/61; PULSE 81; O2SAT 97
--- NOTE | 2024-03-17 10:26 | W.PN.ORTHO ---
Today's Communication / Plan
-
POD #2 s/p right TKA (Dr. Landrum 03/15/24)
-PT/OT as able.
-ASA 81 mg po daily and leg squeezers for DVT prophylaxis.
-BUN mildly increased from yesterday. Repeat BMP in am. Avoid nephrotoxins.
-Waiting for available bed at rehab.
Assessment
.
Distal Motor Intact: Yes
Dressing:
Clean, dry and intact.
Assessment:
POD #2 s/p right TKA (Dr. Landrum 03/15/24)
-PT/OT as able.
-ASA 81 mg po daily and leg squeezers for DVT prophylaxis.
-BUN mildly increased from yesterday. Repeat BMP in am. Avoid nephrotoxins.
-Waiting for available bed at rehab.
Plan
.
Surgery / Date: R TKA Dr. Landrum 03/15/24
DVT Prophylaxis: Aspirin
Activity:
Out of bed.
PT/OT
Discharge Plan: Rehab
Subjective
.
.:
Patient resting comfortably in bedside chair. Reports pain is well controlled. no issues with tolerating aspirin. Overall doing very well.
Vital Signs and Labs
.
Vital Signs and Labs:
Lab Results
03/16/24 05:50
03/16/24 10:48
Temp Pulse Resp BP Pulse Ox
97.7 F 77 16 117/60 94
03/17/24 07:22 03/17/24 07:22 03/17/24 07:22 03/17/24 07:22 03/17/24 08:00
Non-invasive Hgb result: 12
Physical Exam
-
Right knee: Primaseal dressing with mild - moderate sanguinous drainage contained within borders. ROM 0-80 degrees without pain. Able to perform SLR. Mild diffuse swelling and early ecchymosis. Calf soft and non tender to palpation. N/v intact
distally
[2024-03-17 15:39] VITALS: BP 104/57
[2024-03-17] MEDS: PEPCID 20 MG PO (21:34)
[2024-03-17 23:34] VITALS: BP 124/80
[2024-03-18] MEDS: TYLENOL PO ×4 (00:13→16:38)
[2024-03-18] MEDS: SYNTHROID 50 MCG PO (05:09)
[2024-03-18] MEDS: NORCO 7.5/325 2 TABLET PO ×2 (05:47→16:38)
[2024-03-18 06:18] LABS: Blood Urea Nitrogen 29 mg/dl (7-17); Carbon Dioxide 31 mmol/L (22-30); Chloride 106 mmol/L (98-107); Estimated Creatinine Clearance 55 ml/min; Glucose 78 mg/dl (70-99); Sodium 140 mmol/L (135-145); eGFR > 60.00
[2024-03-18 07:50] VITALS: BP 117/67
[2024-03-18] MEDS: COLACE 100 MG PO ×2 (09:04→20:42)
[2024-03-18] MEDS: SENOKOT 17.2 MG PO ×2 (09:04→20:42)
[2024-03-18] MEDS: LYRICA 75 MG PO ×2 (09:05→20:42)
[2024-03-18] MEDS: TYLENOL 650 MG PO ×3 (09:06→20:42)
[2024-03-18] MEDS: PROTONIX 40 MG PO (09:06)
[2024-03-18] MEDS: WELLBUTRIN XL (24 hour extended release) 300 MG PO (09:06)
[2024-03-18] MEDS: LASIX 20 MG PO (09:06)
[2024-03-18] MEDS: CRESTOR 10 MG PO (09:06)
[2024-03-18] MEDS: LOW STRENGTH ASPIRIN 81 MG PO (09:06)
[2024-03-18] MEDS: CYMBALTA DELAYED RELEASE 60 MG PO (09:07)
[2024-03-18] MEDS: FLORASTOR 250 MG PO ×2 (09:07→20:42)
[2024-03-18] MEDS: ULTRAM 50 MG PO ×4 (09:08→22:53)
[2024-03-18] MEDS: MAALOX 30 ML PO (09:17)
--- NOTE | 2024-03-18 09:31 | W.PN.ORTHO ---
Today's Communication / Plan
-
POD #3 s/p right TKA with Dr. Landrum
-PT/OT to tolerance.
-Continue pain regimen with hydrocodone and tramadol prn.
-BUN at 29, stable from yesterday - continue to avoid nephrotoxins.
-ASA 81 mg daily + leg squeezers for DVT prophylaxis.
-Awaiting bed at rehab facility. D/c when bed available.
Assessment
.
Distal Motor Intact: Yes
Dressing:
Clean, dry and intact.
Assessment:
POD #3 s/p right TKA with Dr. Landrum
-PT/OT to tolerance.
-Continue pain regimen with hydrocodone and tramadol prn.
-BUN at 29, stable from yesterday - continue to avoid nephrotoxins.
-ASA 81 mg daily + leg squeezers for DVT prophylaxis.
-Awaiting bed at rehab facility. D/c when bed available.
Plan
.
Surgery / Date: R TKA Dr. Landrum 03/15/24
DVT Prophylaxis: Aspirin
Activity:
Out of bed.
PT/OT
Discharge Plan: Rehab
Subjective
.
.:
Patient resting comfortably in bedside chair. C/o occasional pain in anterior knee and lateral brock.
Vital Signs and Labs
.
Vital Signs and Labs:
Lab Results
03/16/24 05:50
03/18/24 04:38
Temp Pulse Resp BP Pulse Ox
97.6 F 72 16 117/67 97
03/18/24 07:50 03/18/24 07:50 03/18/24 07:50 03/18/24 07:50 03/18/24 07:50
Non-invasive Hgb result: 12
Physical Exam
-
Right knee: Primaseal dressing with moderate drainage. Removed to reveal no active drainage. New dressing applied. Expected swelling and ecchymosis about knee. Calf soft and non tender to palpation. ROM 2-90 degrees, able to do SLR. n/v
intact distally
[2024-03-18 10:10] VITALS: BP 131/62; PULSE 82; O2SAT 96
[2024-03-18 15:31] VITALS: BP 118/60
[2024-03-18] MEDS: PEPCID 20 MG PO (22:52)
[2024-03-18 23:33] VITALS: BP 115/57
[2024-03-19] MEDS: TYLENOL PO ×2 (00:31→04:42)
[2024-03-19] MEDS: NORCO 7.5/325 2 TABLET PO ×2 (05:00→09:54)
[2024-03-19] MEDS: SYNTHROID 50 MCG PO (05:01)
[2024-03-19 07:21] VITALS: BP 118/59
--- NOTE | 2024-03-19 07:33 | W.PN.ORTHO ---
Today's Communication / Plan
-
Discharge today
Assessment
.
Distal Motor Intact: Yes
Dressing:
Clean, dry and intact.
Assessment:
Stable postop
Plan
.
Surgery / Date: R PALOMA Landrum 03/15/24
DVT Prophylaxis: Aspirin
Activity:
Out of bed.
PT/OT
Discharge Plan: Rehab
Subjective
.
.:
Patient resting comfortably. Doing wellf
Vital Signs and Labs
.
Vital Signs and Labs:
Lab Results
03/16/24 05:50
03/18/24 04:38
Temp Pulse Resp BP Pulse Ox
98.2 F 72 18 118/59 98
03/19/24 07:21 03/19/24 07:21 03/19/24 07:21 03/19/24 07:21 03/19/24 07:21
Non-invasive Hgb result: 12.3
Physical Exam
-
Pulm: nonlabored
RLE: Dressing with mild drainage. Incision CDI. No erythema. Calf soft. Swelling well controlled.
[2024-03-19] MEDS: TYLENOL 650 MG PO ×2 (08:25→12:04)
[2024-03-19] MEDS: ULTRAM 50 MG PO ×2 (08:26→12:45)
[2024-03-19] MEDS: WELLBUTRIN XL (24 hour extended release) 300 MG PO (08:26)
[2024-03-19] MEDS: SENOKOT 17.2 MG PO (08:26)
[2024-03-19] MEDS: CYMBALTA DELAYED RELEASE 60 MG PO (08:26)
[2024-03-19] MEDS: FLORASTOR 250 MG PO (08:26)
[2024-03-19] MEDS: CRESTOR 10 MG PO (08:26)
[2024-03-19] MEDS: COLACE 100 MG PO (08:26)
[2024-03-19] MEDS: PROTONIX 40 MG PO (08:26)
[2024-03-19] MEDS: LASIX 20 MG PO (08:26)
[2024-03-19] MEDS: LYRICA 75 MG PO (08:26)
[2024-03-19] MEDS: LOW STRENGTH ASPIRIN 81 MG PO (08:26)
--- NOTE | 2024-03-19 09:31 | CM ---
Patient discharge today
Updated referral for [facility] - no response as to acceptance
Called reel worker Faviola Laurent - [phone] -will accept patient today
Called her sister Sister Ayesha Ledezma [phone]
IMM explained & signed. In chart
PLAN: [facility]
Report: [phone] -2nd floor
Fax #: [phone]
transport forms on chart - wheelchair van
[2024-03-19 13:15] VITALS: BP 123/58
== END 2024-03-19 15:07 | DRG 470 ==
LOC: 2 SOUTH 08:15
PROVIDERS: Physician Assistant Medical; ADMITTING PHYSICIAN Orthopaedic Surgery; FAMILY PHYSICIAN Internal Medicine
PROC: XNH New Technology, Bones, Insertion (ICD-10-PCS; 2024-03-15)
PROC: 0SRC0J9 Replacement of Right Knee Joint with Synthetic Substitute, Cemented, Open Approach (ICD-10-PCS; 2024-03-15)
DX: M17.11 Unilateral primary osteoarthritis, right knee (principal); Z79.82 Long term (current) use of aspirin
CPT/HCPCS: 36415; 73560; 80048; 80053; 82962; 85018; 85027; 87070; 97110; 97116; 97163; 97166; 97530; 97535

== ENCOUNTER 2024-04-07 18:26 | Inpatient (IN) | payer MEDICARE, OTHER, SELFPAY ==
[2024-04-07 11:18] VITALS: BP 108/48
[2024-04-07 11:48] LABS: % Basophils 0.9 % (0-2); % Eosinophils 6.3 % (0-6); % Immature Granulocytes 0.3 % (0-0.5); % Lymphocytes 21.3 % (20.5-51.1); % Neutrophils 60.2 % (42.2-75.2); Absolute Basophils 0.1 10^3/uL (0-0.2); Absolute Eosinophils 0.6 10^3/uL (0-0.7); Absolute Lymphocytes 2.1 10^3/uL (1.2-3.4); Absolute Monocytes 1.1 10^3/uL (0.1-0.6); Absolute Neutrophils 5.9 10^3/uL (1.4-6.5); Hematocrit 32.2 % (37.0-47.0); Hemoglobin 10.4 g/dL (12.0-16.0); Mean Corp Hgb Conc. 32.3 g/dL (33.0-37.0); Mean Corpuscular Volume 96.1 fL (81.0-99.0); Mean Platelet Volume 9.3 fL (7.4-10.4); Nucleated Red Blood Cells % 0 %; Platelet Count 391 10^3/uL (130-400); Red Blood Cell Count 3.35 10^6/uL (4.20-5.40); Red Cell Dist. Width 14.4 % (11.5-14.5); White Blood Cell Count 9.8 10^3/uL (4.8-10.8)
[2024-04-07 12:02] LABS: ALT (SGPT) 24 U/L (0-35); AST (SGOT) 33 U/L (14-36); Albumin 3.8 g/dl (3.5-5.0); Alkaline Phosphatase 105 U/L (38-126); Blood Urea Nitrogen 24 mg/dl (7-17); Calcium 8.8 mg/dl (8.4-10.2); Carbon Dioxide 32 mmol/L (22-30); Chloride 101 mmol/L (98-107); Glucose 88 mg/dl (70-99); Potassium 4.6 mmol/L (3.5-5.1); Sodium 138 mmol/L (135-145); Total Bilirubin 0.6 mg/dl (0.2-1.3); Total Protein 6.2 g/dl (6.3-8.2); eGFR > 60.00
[2024-04-07 14:12] VITALS: BP 103/49
--- NOTE | 2024-04-07 14:48 | ED.GENMED ---
History of Present Illness
General
Chief Complaint: Post Operative Problem(s)
Source: patient
Time Seen by Provider: 04/07/24 14:06
History of Present Illness
History of Present Illness:
68-year-old female who is 2 to 3 weeks status post total knee replacement on the right. Patient states that she started noticed swelling and redness to the right leg. Patient did call orthopedics and left a message. Patient denies fevers. She is
a diabetic. No shortness of breath. Patient mitts that the pain was get better but now seems worse. She is still able to move and flex the knee.
Past History
Past History
ED Past Medical History: HTN, Hypercholesterolemia, Hypothyroidism and Other (Review C. difficile with stool transplant, diabetes, hyperlipidemia, hypothyroidism, chronic pain, bilateral knee replacements, asthma)
ED Past Surgical History: Orthopedic and Other (00phrectomy hysterectomy, perforated duodenal ulcer)
Social History
Tobacco: Non-smoker
Alcohol: None
Drug: None
Personal:
Living: with family
Employment: Employed
Family History
Family History: Other (Noncontributory)
Phy Exam
Physical Exam
Physical Exam:
CONSTITUTIONAL Vital signs reviewed, Patient alert and oriented to person, place and time. Well-appearing
HEAD atraumatic, normocephalic.
EYES eyelids normal to inspection, Extraocular muscles intact, Conjunctiva normal, Sclera normal.
NECK normal range of motion, Trachea midline, no jugular venous distention.
RESP no respiratory distress
BACK No obvious deformities
UPPER EXTREMITY Gross Range of motion normal, gross motor strength normal
LOWER EXTREMITY Gross motor strength normal. There is redness throughout the lower extremity on the right from about the distal portion of the incision to the ankle. She has incision intact with Steri-Strips removed at the bottom portion of the
incision. It is well-approximated but there is pus coming from the lower end of the incision about 1 cm from the bottom. This was cultured. Her redness starts in that area. I do not sense a significant joint effusion.
NEURO Speech normal, No focal motor deficits include, Steele coma scale 15, Memory normal, Cranial Nerves intact to screening exam.
SKIN Skin warm, dry, and normal in color.
PSYCHIATRIC Patient oriented to person place and time, Normal affect.
Course
Orders/Labs/Results
Orders:
Orders
04/07/24 11:31
C-Reactive Protein Urgent
Comment: ADDON
Complete Blood Count/With Diff Urgent
Comprehensive Metabolic Panel Urgent
Erythrocyte Sed Rate Urgent
Comment: ADDON
04/07/24 14:43
Wound Culture [Wound/Abscess/Other Culture] Urgent
LA NENA Source: Leg
Specimen Description: Right
Date Specimen was Collected: 04/07/24
Time Specimen was Collected: 14:39
04/07/24 14:48
Acetaminophen [Tylenol] 1,000 mg PO NOW STA
04/07/24 14:53
Acetaminophen [Tylenol] 1,000 mg .ROUTE .STK-MED ONE
04/07/24 14:56
Add On- LAB Urgent
Tests Added?: ESR, CRP
04/07/24 Dinner
2000 calorie (17 carb) Diabetic
04/07/24 15:11
Vancomycin [Vancocin] 2,000 mg 0.9% Sodium Chloride 500 ml [Nss] 500 ml IV NOW
04/07/24 16:25
Knee, Right 4 or More Views [CR Knee- Right 4 Or More View*] Urgent
Comment:
Reason For Exam: recent TKR, pain and swelling
04/07/24 17:13
K pad [Heat Application] As Directed
Apply heat therapy device to (location):: Right knee
Device Frequency setting:: 20 minute cycles
Device temperature setting:: Low: 95 F (35 C)
04/07/24 18:04
Admit/Transfer Patient As Directed
Co-Sign Provider:
Level of Care: Inpatient admission
Assign to:: Medical/Surgical
Physician / Group: Hospitalist
Diagnosis: Infected wound
Reason for Hospitalization: Infected wound
Expected length of stay greater than two midnights?: Yes
ELOS- Estimated Length of Stay in days: 3
I certify the patient meets the requirements for IP care: Yes
PRN Pain Medication Management As Directed
May give lesser potent ordered pain med per pt: Yes
preference::
Protocol:: Medication orders for pain may be administered in a
manner that supports deferring to patient preference
when the pt is:
- Requesting an ordered lesser potent pain medication.
Least to most potent pain medications are defined
as: acetaminophen < NSAID < tramadol < opioids
(morphine, oxycodone, hydromorphone).
- Requesting a lesser dose of the same medication IF
ORDERED.
- Requesting a less intrusive route of administration
if both routes are prescribed by the provider (PO <
IV).
04/07/24 18:07
Code Status As Directed
Resuscitation Status: Full Code
04/07/24 19:54
0.9% Sodium Chloride 1000 ml [Nss] 1,000 ml IV 75 mls/hr
Furosemide [Lasix] 40 mg PO DAILYPRN PRN
Ondansetron Orally Disint [Zofran Odt (Orally Disintegrating)] 4 mg PO Q6HPRN PRN
hydrocodone-acetaminophen 1 tablet PO Q6HPRN PRN
04/07/24 19:54
INFECTIOUS DISEASE CONSULT Routine
Consulting Provider: Dunia Velez
Was physician already notified: Yes
Reason for consult: Infected post op wound with pus, h/o DM, growing 3 bugs
Activity As Directed
Activity Level: Out of Bed-Early Mobility
Intake/ Output As Directed
Frequency: Per unit guidelines
Venous Foot Pumps As Directed
Location: Bilateral feet
Vital Signs As Directed
Frequency: Per unit guidelines
DX Deep Vein Thrombosis Video Routine
04/07/24 20:00
Piperacillin/Tazo 4.5 Gram [Zosyn] 4.5 gram in 100 ml IV Q6H
04/07/24 22:00
Famotidine [Pepcid] 40 mg PO HS
Gabapentin [Neurontin] 300 mg PO HS
04/08/24 06:00
Basic Metabolic Panel IN AM
Complete Blood Count/No Diff IN AM
Levothyroxine [Synthroid] 50 mcg PO DAILY@0600
04/08/24 08:00
Aspirin Low Dose EC [Aspir Low (Enteric Coated)] 81 mg PO DAILY
Bupropion(24Hr)Extended Releas [WELLBUTRIN XL (24 hour extended release)] 300 mg PO DAILY
Calcium Carbonate [Oscal Johnie 500] 1,000 mg PO DAILY
Cyanocobalamin [Vitamin B-12] 1,000 mcg PO DAILY
Duloxetine Delayed Release [Cymbalta Delayed Release] 60 mg PO DAILY
Furosemide [Lasix] 40 mg PO DAILY
Multivitamin [Theragran] 1 tablet PO DAILY
Pantoprazole [Protonix] 40 mg PO DAILY
Rosuvastatin Calcium [Crestor] 10 mg PO DAILY
tramadol 300 mg PO DAILY
Abnormal Lab Results
04/07/24
11:31
RBC 3.35 L 10^6/uL
(4.20-5.40)
Hgb 10.4 L g/dL
(12.0-16.0)
Hct 32.2 L %
(37.0-47.0)
MCHC 32.3 L g/dL
(33.0-37.0)
Absolute Monos (auto) 1.1 H 10^3/uL
(0.1-0.6)
Monocytes % 11.0 H %
(1.7-9.3)
Eosinophils % 6.3 H %
(0-6)
ESR 32 H mm/hour
(0-20)
Carbon Dioxide 32 H mmol/L
(22-30)
BUN 24 H mg/dl
(7-17)
C-Reactive Protein 79.50 H mg/L
(0.0-10.00)
Total Protein 6.2 L g/dl
(6.3-8.2)
04/07/24 11:31
04/07/24 11:31
Vital Signs
Initial and Last Documented VS:
Initial Vital Signs
Temp Pulse Resp BP Pulse Ox
98.6 F 100 16 108/48 97
04/07/24 11:18 04/07/24 11:18 04/07/24 11:18 04/07/24 11:18 04/07/24 11:18
Last Documented Vital Signs
Temp Pulse Resp BP Pulse Ox
99.4 F 96 20 119/64 98
04/07/24 19:50 04/07/24 19:50 04/07/24 19:50 04/07/24 19:50 04/07/24 19:50
MDM/Problems Addressed
MDM/Problems Addressed:
Cellulitis, wound infection
*Radiology
Radiology exam reviewed: all reviewed NAD by ED Provider
*Pulse Oximetry
Patient hypoxic: no
*Critical Care Note
Total Time (30-74mins, 75-104mins- exclusive of procedures): Not Applicable
Data Reviewed
Review of Other/Old Records Reveals: Operative Reports (March 15 operative report reviewed)
Source: patient
Further Testing Considered But Not Given:
Considered whether patient needs arthrocentesis but deferred to orthopedics. I do not suspect joint infection
Patient Management
Discussion with other providers: Personnel And Payroll Technician (Case discussed with orthopedics)
Escalation/DeEscalation of care consider admission/obs:
Patient seen in the emergency room by orthopedics. I do suspect cellulitis given the pus coming from the inferior portion of her wound and the fact that she can move her knee well. Not joint infection. However orthopedics seen and evaluated.
Agree for now. IV antibiotics and admit. Gram stain does show gram-positive cocci and just few gram-positive and gram-negative rods. Treat with antibiotics
ED Attending Note
-
Portions of this chart may have been created with voice recognition software.� Occasional wrong word or��sound alike� substitutions may have occurred due to the inherent limitations of voice recognition software.
Discharge Plan
Departure
Patient Disposition: Admit
Date of Disposition: 04/07/24
Time of Disposition: 14:52
Admit to: Med/Surg
Presentation/result/management discussed w/ accepting MD/DO: Hospitalist
Discharge Problem:
Cellulitis
Interventions
Interventions:
*Risk Screen - Suicide Last Done: 04/07/24 22:36
*General Assessment Last Done: 04/07/24 11:18
*Neglect/Abuse Screening Last Done: 04/07/24 11:18
ED- Fall Risk Assessment Last Done: 04/07/24 14:12
*ED COVID-19 Vaccine History Last Done: 04/07/24 22:36
*Nursing Disposition Last Done: 04/07/24 19:41
ED-Skin Assessment Last Done: 04/07/24 14:12
Discharge Date and Time
Discharge Date/Time: 04/07/24 19:41
[2024-04-07] MEDS: TYLENOL 1000 MG PO (15:06)
[2024-04-07] MEDS: VANCOCIN 540 MG IV (15:44)
[2024-04-07 15:46] LABS: Erythrocyte Sed Rate 32 mm/hour (0-20)
--- NOTE | 2024-04-07 16:50 | W.PN.UPDATE ---
Update Note
Progress Note Update
Status post right total knee arthroplasty March 15, [address] Landrum. Postoperatively she was overnight at [facility] then subsequently discharged to a rehab facility then home. March, she was seen in our office for skin clip
removal. At that point she was doing well and progressing nicely with formal physical therapy. For DVT prophylaxis she is taking aspirin 81 daily along with utilization of mechanical devices. Patient has history of colitis and prior GI bleed so
trying to be more conservative with oral anticoagulants. In the past few days she has started to notice increased swelling. No fevers or chills noted. She and her sister who is a physician were concerned so they brought her to [facility]
emergency room for evaluation. I spoke to Dr. Mason who removed a few Steri-Strips. There is a small area with some purulent drainage which she cultured. There is generalized edema in this vicinity along with some discomfort and erythema. No
palpable fluid accumulation within the subcutaneous tissue. Erythema/warmth trails down into the anterior aspect of her lower leg. No obvious effusion noted within the knee. Passive motion 0 to 90 degrees without pain or instability. Calf does
have edema but it is palpable and nonpainful. Distal neurovascular was intact. Laboratory data revealed that her WBC was normal, Hgb 10.4, ESR was elevated slightly at 32 and CRP was pending. Pictures were taken and will be shared with . "Elle"Lucita. She is going to be admitted to the hospitalist service and placed on broad-spectrum antibiotics. Incision was cleaned and light dressing placed. She is going to utilize K-pad for warmth. Will observe and hopefully if improvement send
home tomorrow on oral antibiotics with close follow-up with Dr. Landrum. X-ray ordered and I will review later.
[2024-04-07 17:19] VITALS: BP 118/62
--- NOTE | 2024-04-07 17:49 | HPS.HSE ---
Family Physician
-
Family Physician: Dafne Ma DO
Chief Complaint
-
Infected wound
History of Present Illness
68 woman with infected post op wound.
She is status post right total knee arthroplasty March 15, [address] Landrum. In the past few days she had increased swelling. No fevers or chills noted. There was a small area with some purulent drainage which was cultured. There is edema
some discomfort and erythema. No palpable fluid accumulation within the subcutaneous tissue. Erythema/warmth trails down into the anterior aspect of her lower leg. Incision was cleaned and light dressing placed. K-pad for warmth. close
follow-up with Dr. Landrum provided by [facility]. Lab reports gram (+) cocci, gram (+) rods, gram (-) rods.
Medical History
Past Medical History
Past Medical History: Reports Other
Additional Past Medical History:
Fatty liver disease, nonalcoholic
Diabetes mellitus type 2, noninsulin dependent
Type 2 diabetes mellitus with hyperglycemia
Primary osteoarthritis of left shoulder
Morbid obesity
Bilateral primary osteoarthritis of knee
Hypercholesteremia
Mixed hyperlipidemia
Major depressive disorder, single episode, mild
Lymphedema
Moderate persistent asthma
Hx of cervical cancer
Obstructive sleep apnea
Type 2 diabetes mellitus with other specified complication
Benign paroxysmal positional vertigo, unspecified laterality
GERD without esophagitis
Essential (primary) hypertension
Acquired hypothyroidism
History of bariatric surgery
Stage 3a chronic kidney disease
Charcot joint of left foot
Hx of malignant neoplasm of vulva
Past Surgical History: Reports Other
Additional Past Surgical History:
See above
Social History
Tobacco: Non-smoker
Alcohol: None
Drug: None
Family History
Family History: Not pertinent
Allergies / Home Medications
Allergies reflects when Allergies were last updated in [employer].
Home Medications with original date entered in [employer]
Allergy/Medication List:
Allergies
Allergy/AdvReac Type Severity Reaction Status Date / Time
capsaicin Allergy Rash Verified 04/07/24 14:07
clindamycin Allergy Nausea / Verified 04/07/24 14:07
Vomiting
Sulfa (Sulfonamide Allergy Itching Verified 04/07/24 14:07
Antibiotics)
Home Medications
bupropion HCl 300 mg 24 hr tablet, extended release 300 mg PO DAILY Mental Health/Anxiety 01/06/15
duloxetine 60 mg capsule,delayed release 60 mg PO DAILY Mental Health/Anxiety 01/06/15
calcium carbonate (Calcium 500) 1,000 mg PO DAILY Supplement 12/19/20
cyanocobalamin (vitamin B-12) 1,000 mcg tablet 1,000 mcg PO DAILY Supplement 12/19/20
famotidine 40 mg tablet 40 mg PO HS Gastrointestinal issue 12/19/20
omeprazole 40 mg capsule,delayed release 40 mg PO DAILY Gastrointestinal issue 12/19/20
azelastine 137 mcg (0.1 %) nasal spray 1 spray intranasal BIDPRN PRN congestion 12/06/23
furosemide 40 mg tablet 40 mg PO DAILY Fluid Retention/Swelling 12/06/23
furosemide 40 mg tablet 40 mg PO DAILYPRN PRN extra dose for swelling 12/06/23
hydrocodone 10 mg-acetaminophen 325 mg tablet 1 tab PO Q6HPRN PRN moderate pain 12/06/23
inulin 2 gram chewable tablet (Fiber Gummies) 4 g PO DAILY Supplement 12/06/23
levothyroxine 50 mcg tablet 50 mcg PO DAILY Thyroid 12/06/23
multivitamin 1 tab PO DAILY Supplement 12/06/23
phentermine 37.5 mg tablet 15 mg PO DAILY Neurological Condition 12/06/23
rosuvastatin 10 mg tablet 10 mg PO DAILY High Cholesterol 12/06/23
tirzepatide 15 mg/0.5 mL subcutaneous pen injector (Mounjaro) 10 mg SC TH Diabetes 12/06/23
tramadol 300 mg tablet,extended release 24 hr 300 mg PO DAILY pain 12/06/23
[place] 1 tab PO DAILY Supplement 02/27/24
gabapentin 300 mg capsule 300 mg PO HS Neurological Condition 03/15/24
aspirin 81 mg tablet,delayed release 81 mg PO DAILY 04/07/24
ondansetron 4 mg disintegrating tablet 4 mg PO Q6HPRN PRN nausea with mounjaro 04/07/24
Review of Systems
-
History Source: Patient
A 12 point ROS was completed and negative except as noted: Yes
Physical Exam
Vital Signs
Vital Signs
Temp Pulse Resp BP Pulse Ox
98.1 F 95 16 118/62 98
04/07/24 17:19 04/07/24 17:19 04/07/24 17:19 04/07/24 17:19 04/07/24 17:19
Physical Exam
General: Well Developed, Well Nourished, No Apparent Distress, Comfortable, Conversant and Obese
HEENT: NormoCephalic, Moist mucous membranes, Nose Appears Normal and Ears Appear Normal; No Good Dentition
Respiratory: Clear
Cardiac: S1/S2 and Regular Rhythm
GI: Soft, Non Tender and Non Distended
Musculoskeletal: No Clubbing, No Cyanosis, Edema, Left Lower Extremity, Edema, Right Lower Extremity and Other (red wound on left leg)
Skin: Warm, Dry and Rash
Neuro: Awake, Alert, Oriented and AO x 3
Psych: Calm
Laboratory Results
-
04/07/24 11:31
04/07/24 11:31
Laboratory Results
Total Bilirubin 0.6 mg/dl (0.2-1.3) 04/07/24 11:31
AST 33 U/L (14-36) 04/07/24 11:31
ALT 24 U/L (0-35) 04/07/24 11:31
Alkaline Phosphatase 105 U/L (38-126) 04/07/24 11:31
Data Reviewed
-
Lab Data: Labs Reviewed by me
Impression/Plan
-
IMPRESSION:
68 woman with diabetes has infected post surgical wound. Mixed megan.
PLAN:
1. Post surgical wound infection, complicated by diabetes, growing gram (+) cocci, Gram (+) rods and Gram (-) rods
Broad spectrum abx
ID consult
Ortho consult
2. Diabetes - currently controlled
Continue usual meds.
3. BUN/Creat > 20, likely from increased metabolic demand
IV saline tonight
Has CKD but no h/o CHF
4. Known chronic medical issues:
Fatty liver disease, nonalcoholic
Diabetes mellitus type 2, noninsulin dependent
Type 2 diabetes mellitus with hyperglycemia
Primary osteoarthritis of left shoulder
Morbid obesity
Bilateral primary osteoarthritis of knee
Hypercholesteremia
Mixed hyperlipidemia
Major depressive disorder, single episode, mild
Lymphedema
Moderate persistent asthma
Hx of cervical cancer
Obstructive sleep apnea
Benign paroxysmal positional vertigo, unspecified laterality
GERD without esophagitis
Essential (primary) hypertension
Acquired hypothyroidism
History of bariatric surgery
Stage 3a chronic kidney disease
Charcot joint of left foot
Hx of malignant neoplasm of vulva
-Continue home meds for these
Full code
SCD for DVTp
[2024-04-07 19:50] VITALS: BP 119/64; BMI 37.6
--- NOTE | 2024-04-07 21:06 | PHA.VAN.IN ---
Assessment
- Assessment
Renal Function: Appears similar to baseline
Concomitant Antimicrobials: piperacillin/tazobactam
AUC Dosing Plan
- Dosing Variables
Dosing Weight (kg): 93
Dosing CrCl (ml/min): 58
Vd coefficient (L/kg): 0.6
- Empiric Dosing
Initial / Loading Dose: 2000mg - 04/07 15:44
Maintenance Regimen: Vanc 1500mg Q24H starting at 0600
Estimated AUC (mcg*h/mL): 532
Estimated Peak (mcg*h/mL): 37.5
Estimated Trough (mcg/ml): 11.5
Estimated Half Life (H): 13.2
- Monitoring
No levels ordered at this time: follow renal function - may require adjustment
Pharmacokinetics Vancomycin I
- -
Patient Age: 68
Patient Sex: Female
Vancomycin Day #: 1
Indication: Skin And Soft Tissue
Requesting Provider: Dr. Waggoner
Pertinent Antimicrobial Allergies:
clindamycin - nausea / vomiting
sulfonamide antibiotics - itching
Height / Weight:
Height 5 ft 2 in
Actual Weight 93.128 kg
Pertinent Past Medical History: BMI ~38, DM
- Vital Signs / Lab Results
Temp Pulse Resp BP Pulse Ox
99.4 F 96 20 119/64 98
04/07/24 19:50 04/07/24 19:50 04/07/24 19:50 04/07/24 19:50 04/07/24 19:50
Lab Results - Hematology
04/07/24
11:31
WBC 9.8
Lab Results - Chemistry
04/07/24
11:31
BUN 24 H
Creatinine 1.0
Albumin 3.8
Microbiology Results
04/07/24 14:43 Gram Stain - Preliminary
Leg - Right
[2024-04-07] MEDS: NSS 1000 IV (21:25)
[2024-04-07] MEDS: ZOSYN 100 IV (21:26)
[2024-04-07] MEDS: NORCO 7.5/325 1 TABLET PO (21:27)
[2024-04-07] MEDS: NEURONTIN 300 MG PO (21:27)
[2024-04-07] MEDS: PEPCID 40 MG PO (21:27)
--- NOTE | 2024-04-07 21:30 | PTCARENOTE ---
Received pt from ED. Pt able to walk into room from stretcher with walker. Pt assessed, vitals obtained-see flowsheets.Right knee is wrapped in dressing. Pt had swab in ED. Leg is warm to the touch and red. Pt had questions about her pain
medication. She was requesting her 10-325 mg hydrocodone which is non-formulary. I told her I would check with pharmacy to see what we could do for tonight to ensure adequate pain control. per pharmacy, we had 5-325 and 7.5-325. Notified [employer] covering
overnight and decision was made to utilize 7.5-325 mg tablets twice overnight (q6 hrs) to ensure adequate pain control. Pt states her sister should be able to bring in her home dose so pharmacy can verify and she can utilize her own medications. Pt
agreeing. Call jeffers within reach. No other concerns at this time. Will continue to monitor.
[2024-04-07 23:00] VITALS: BP 153/79
[2024-04-08] MEDS: ZOSYN 100 IV ×4 (02:33→19:53)
[2024-04-08] MEDS: NORCO 7.5/325 1 TABLET PO (02:33)
[2024-04-08] MEDS: SYNTHROID 50 MCG PO (06:03)
[2024-04-08] MEDS: VANCOCIN 530 MG IV (06:03)
[2024-04-08 07:11] LABS: Hematocrit 29.6 % (37.0-47.0); Hemoglobin 9.7 g/dL (12.0-16.0); Mean Corp Hgb Conc. 32.8 g/dL (33.0-37.0); Mean Corpuscular Hgb 31.3 pg (27.0-31.0); Mean Corpuscular Volume 95.5 fL (81.0-99.0); Mean Platelet Volume 9.5 fL (7.4-10.4); Platelet Count 336 10^3/uL (130-400); Red Cell Dist. Width 13.9 % (11.5-14.5); White Blood Cell Count 8.7 10^3/uL (4.8-10.8)
[2024-04-08 07:34] LABS: Blood Urea Nitrogen 16 mg/dl (7-17); Calcium 8.6 mg/dl (8.4-10.2); Carbon Dioxide 26 mmol/L (22-30); Chloride 104 mmol/L (98-107); Estimated Creatinine Clearance 64 ml/min; Glucose 90 mg/dl (70-99); Potassium 3.7 mmol/L (3.5-5.1); Sodium 138 mmol/L (135-145); eGFR > 60.00
[2024-04-08 07:41] VITALS: BP 127/60
[2024-04-08] MEDS: WELLBUTRIN XL (24 hour extended release) 300 MG PO (07:51)
[2024-04-08] MEDS: OSCAL CAL 500 1000 MG PO (07:51)
[2024-04-08] MEDS: THERAGRAN 1 TABLET PO (07:52)
[2024-04-08] MEDS: VITAMIN B-12 1000 MCG PO (07:52)
[2024-04-08] MEDS: PROTONIX 40 MG PO (07:52)
[2024-04-08] MEDS: LASIX 40 MG PO (07:52)
[2024-04-08] MEDS: CYMBALTA DELAYED RELEASE 60 MG PO (07:52)
[2024-04-08] MEDS: ASPIR LOW (ENTERIC COATED) 81 MG PO (07:52)
[2024-04-08] MEDS: CRESTOR 10 MG PO (07:52)
--- NOTE | 2024-04-08 08:21 | W.PN.HOSP.TC ---
Addendum entered and electronically signed by Reji Garcia MD 04/08/24 19:30:
call placed and discussed with sister, as per pt request, Dr. Monica Ledezma
Original Note:
Today's Communication/Plan
-
continue current abx pending aspiration C&S results
ID consult
Assessment / Plan
Assessment / Plan
1. Post surgical wound infection, complicated by diabetes, growing gram (+) cocci, Gram (+) rods and Gram (-) rods
WBC 9.8-->8.7k
Broad spectrum abx
ID consult
currently on Zosyn/Vancomycin
Ortho consult
2. Diabetes - currently controlled
Continue usual meds.
glu 81-87
3. BUN/Creat > 20, likely from increased metabolic demand
IV saline tonight
Has CKD but no h/o CHF
4. Having significant pain
Pt requesting something stronger
will order prn IV Dilaudid for severe pain in addition to Hydrocodone for moderate pain
5. Known chronic medical issues:
Fatty liver disease, nonalcoholic
Diabetes mellitus type 2, noninsulin dependent
Type 2 diabetes mellitus with hyperglycemia
Primary osteoarthritis of left shoulder
Morbid obesity
Bilateral primary osteoarthritis of knee
Hypercholesteremia
Mixed hyperlipidemia
Major depressive disorder, single episode, mild
Lymphedema
Moderate persistent asthma
stable, no wheeze noted
Hx of cervical cancer
Obstructive sleep apnea
Benign paroxysmal positional vertigo, unspecified laterality
GERD without esophagitis
Essential (primary) hypertension
BP 127/60
Acquired hypothyroidism
History of bariatric surgery
Stage 3a chronic kidney disease
Charcot joint of left foot
Hx of malignant neoplasm of vulva
-Continue home meds for these
Full code
SCD for DVTp
Anticipated Discharge: > 48 hours
Subjective/Interval History
-
Date of Service: April 08, 2024
Having a lot of Rt knee pain, states oral medication not controlliong
Objective Data
-
Labs:
Laboratory Results
04/08/24
06:27
WBC 8.7
Hgb 9.7 L
Hct 29.6 L
Plt Count 336
Sodium 138
Potassium 3.7
Chloride 104
Carbon Dioxide 26
BUN 16
Creatinine 0.9
Glucose 90
Calcium 8.6
Vital Signs:
Vital Signs
Temp Pulse Resp BP Pulse Ox
99.2 F 99 16 127/60 95
04/08/24 07:41 04/08/24 07:41 04/08/24 07:41 04/08/24 07:41 04/08/24 07:41
I&O
04/07/24 04/08/24 04/09/24
06:59 06:59 06:59
Intake Total 2164
Balance 2164
Review of Systems
-
History Source: Patient and Coordinated Provider (reviewed with RN)
Constitutional: Denies Fever
EENT: Reports No Symptoms Reported
Respiratory: Reports No Symptoms
Cardiac: Reports No Symptoms; Denies Chest Pain
Abdomen/GI: Reports No Symptoms
Musculoskeletal: Reports Joint Pain and Other (rt leg pain)
Skin: Reports Rash (distal to leg incision site)
Physical Exam
-
General: Well Developed, Well Nourished, No Apparent Distress and Obese
HEENT: Normocephalic, Atraumatic and Moist Mucous Membranes
Respiratory: Clear to Auscultation; Negative Wheezes (no wheeze on forced expiration), Rales or Rhonchi
Cardiac: Regular Rhythm and S1/S2
GI: Soft, Nontender and Nondistended
Musculoskeletal: No Clubbing and No Cyanosis
Skin: Rash (cellulitic changes distal to incision site over knee on Rt)
Neuro: Awake, Alert and Oriented
Psych: Calm and Intact Judgement/Insight
[2024-04-08 08:45] LABS: Glucose - Point of Care 121 mg/dl (70-99)
[2024-04-08] MEDS: DILAUDID 0.5 MG IV ×3 (09:11→21:23)
--- NOTE | 2024-04-08 10:16 | W.PN.UPDATE ---
Update Note
Progress Note Update
Patient seen with Dr. Celis today.
Mrs. Ledezma reports that her right knee feels slightly better than yesterday. She is afebrile and WBC is normal. ESR 32 and CRP 79.50. Gram stain has gram-positive cocci, gram positive rods and gram negative rods (culture obtained at skin level).
Right knee dressing removed. Erythema slightly improved about the anterior aspect of the knee and right anterior aspect of the lower extremity. Incision was cleaned with alcohol and Betadine. Central portion has scant serous drainage on the
dressing. I was able to express small amount of purulent drainage from superficial tissue. No effusion noted within the knee. Her passive range of motion was 0 to 100 degrees without pain or instability. Calf is compressible without pain.
Negative Homans' sign. Distal neurovascular was intact.
Patient relays that she has had problems with keloid formation in the past and after one of her surgeries she did have wound dehiscence.
Status post right total knee arthroplasty March 15, [address] Landrum. It does not appear as though there is any intra-articular involvement for infection but she does have superficial infection with some cellulitis in her lower extremity. Today
I was able to express some purulent fluid from superficial tissues. Hopefully with vancomycin, Zosyn and warm compress with K-pad she will see continued improvement by tomorrow. I would like for her to continue with formal physical therapy. I
have encouraged her to try to do a lot of walking. She will utilize mechanical devices when in bed. She does have history of colitis and GI bleed. Patient does have diabetes but it is well-controlled. Observation for now. Appreciate medical
teams assistance with the patient. Pictures of her lower extremity shared with Dr. Landrum and he is up-to-date on her.
--- NOTE | 2024-04-08 10:38 | PHA.VAN.FU ---
Vancomycin Assessment / Plan
- Assessment
Renal Function: SCR Decreasing
WBC's are: Trending Down
In the past 24 hrs, patient has been: Afebrile
Concomitant Antimicrobials: Piperacillin-tazobactam
- Dosing Plan
Continue: Vanc 1500mg IV q24H
- Follow Up
Pharmacy will continue to follow.
Vancomycin Follow UP
- -
Patient Age: 68
Patient Sex: Female
Vancomycin Day #: 2
Indication: Skin And Soft Tissue
Requesting Provider: Dr. Waggoner
Pertinent Antimicrobial Allergies:
clindamycin - nausea / vomiting
sulfonamide antibiotics - itching
Height / Weight:
Height 5 ft 2 in
Actual Weight 93.128 kg
Pertinent Past Medical History: BMI ~38, DM
- Vital Signs / Lab Results
Temp Pulse Resp BP Pulse Ox
99.2 F 99 16 127/60 95
04/08/24 07:41 04/08/24 07:41 04/08/24 07:41 04/08/24 07:41 04/08/24 07:41
Lab Results - Hematology
04/07/24 04/08/24
11:31 06:27
WBC 9.8 8.7
Lab Results - Chemistry
04/07/24 04/08/24
11:31 06:27
BUN 24 H 16
Creatinine 1.0 0.9
Estimated Creat Clear 64
Albumin 3.8
Microbiology Results
04/07/24 14:43 Gram Stain - Preliminary
Leg - Right
[2024-04-08] MEDS: NORCO 5/325 2 TABLET PO (12:07)
[2024-04-08 12:42] LABS: Glucose - Point of Care 121 mg/dl (70-99)
--- NOTE | 2024-04-08 13:54 | CON.ID ---
Consultation
-
Date/Time Consultation Requested: 04/07/24 19:54
Date/Time Consultation Performed: 04/07/24 13:54
Requesting Provider: Dr Waggoner
Performing Provider: Dr Velez
Reason for Consultation: 'Infected post op wound with pus, h/o DM, growing 3 bugs'
Chief Complaint / Past History
Chief Complaint
Infected wound
History of Present Illness
Ms Ledezma is a 68 year old female with history of Dm2, class II obesity h/o bariatric surgery who presented here 04/07 for swelling, purulent drainage from right knee surgical site. She underwent R TKR 03/15/24. Then over the last few days she has
noted swelling, edema, erythema, pain and purulent drainage. Does report challenging with healing wounds (keloid formation) and a previous wound dehiscence after previous surgery.
Since arrival here she has been afebrile, bp stable, wbc initially 9.8 today 8.7, hgb 9.7, plt 336, no L shift, AEC 0.6 on arrival has previously run in the 0.3-0.5 range, na 138, cr 0.9, crp 80, esr 32, 04/07 right knee xray: post surgical changes,
superficial wound swab gram stain maderate gpcs, few gpr, rare gnr and has grown many presumptive S aureus, patient is currently on vancomycin and zosyn,
Past History
Additional Past Medical History:
Fatty liver disease, nonalcoholic
Diabetes mellitus type 2, noninsulin dependent
Type 2 diabetes mellitus with hyperglycemia
Primary osteoarthritis of left shoulder
Morbid obesity
Bilateral primary osteoarthritis of knee
Hypercholesteremia
Mixed hyperlipidemia
Major depressive disorder, single episode, mild
Lymphedema
Moderate persistent asthma
Hx of cervical cancer
Obstructive sleep apnea
Type 2 diabetes mellitus with other specified complication
Benign paroxysmal positional vertigo, unspecified laterality
GERD without esophagitis
Essential (primary) hypertension
Acquired hypothyroidism
History of bariatric surgery
Stage 3a chronic kidney disease
Charcot joint of left foot
Hx of malignant neoplasm of vulva
Additional Past Surgical History:
History of bariatric surgery
Allergy History:
capsaicin Allergy (Verified 04/07/24 14:07)
Rash
clindamycin Allergy (Verified 04/07/24 14:07)
Nausea / Vomiting
Sulfa (Sulfonamide Antibiotics) Allergy (Verified 04/07/24 14:07)
Itching
Medications Reviewed: Yes
Social History
Tobacco: Non-Smoker
Alcohol: None
Drug: None
Family History
Family History: Not Pertinent
Review of Systems
Review of Systems
General: Negative Fever or Chills
All systems: All other systems were reviewed and were negative
Vital Signs
Temp Pulse Resp BP Pulse Ox
99.2 F 99 16 127/60 95
04/08/24 07:41 04/08/24 07:41 04/08/24 07:41 04/08/24 07:41 04/08/24 07:41
Physical Exam
Physical Exam
Constitutional: No Acute Distress
Cardiovascular: Regular Rate and S1/S2; Negative Murmur or Rub
Pulmonary: Clear and Symmetric; Negative Wheezes, Rales or Rhonchi
Gastrointestinal: Soft, Non Tender, Non Distended and Normal Bowel Sounds
Skin: Warm and Dry; Negative Rash or Jaundice
Wound: Other (R knee surgical site)
Lab / Diagnostic Study Results
04/08/24 06:27
04/08/24 06:27
Abs Immat Gran (auto) 0.0 10^3/uL (0-0.05) 04/07/24 11:31
Absolute Neuts (auto) 5.9 10^3/uL (1.4-6.5) 04/07/24 11:31
Absolute Lymphs (auto) 2.1 10^3/uL (1.2-3.4) 04/07/24 11:31
Absolute Monos (auto) 1.1 10^3/uL (0.1-0.6) H 04/07/24 11:31
Absolute Basos (auto) 0.1 10^3/uL (0-0.2) 04/07/24 11:31
Immature Gran % 0.3 % (0-0.5) 04/07/24 11:
Neutrophils % 60.2 % (42.2-75.2) 04/07/24 11:
Lymphocytes % 21.3 % (20.5-51.1) 04/07/24 11:
Monocytes % 11.0 % (1.7-9.3) H 04/07/24 11:
Eosinophils % 6.3 % (0-6) H 04/07/24 11:
Basophils % 0.9 % (0-2) 04/07/24 11:
ESR 32 mm/hour (0-20) H 04/07/24 11:31
C-Reactive Protein 79.50 mg/L (0.0-10.00) H 04/07/24 11:31
Microbiology Results
Micro:
04/07/24 14:43 Wound Culture - Preliminary
Leg - Right Staphylococcus aureus
Gram Stain - Preliminary
Assessment / Plan
Superficial R knee Surgical Site Infection
- blood cultures x2
- superficial wound culture - gram stain polymicrobial, culture S aureus thus far
- I recultured this afternoon
- xray without overt hardwear complication
- US tomorrow - limited to assess for fluid collections
- nonocclusive dressing to facilitate drainge
- warm compresses
- agree with vancomycin and zosyn at this time
- follow clinically
[2024-04-08 15:51] VITALS: BP 99/56
[2024-04-08 17:28] LABS: Glucose - Point of Care 102 mg/dl (70-99)
--- NOTE | 2024-04-08 18:25 | PTCARENOTE ---
Wound cx sent. RLE dressing changed. Juan wrap distal to wound per ID. Pt ambulating SBA with RW. Pain managed, see MAY. No change in assessment
[2024-04-08] MEDS: NEURONTIN 300 MG PO (19:53)
[2024-04-08] MEDS: PEPCID 40 MG PO (19:53)
[2024-04-08] MEDS: MIRALAX 17 GRAMS PO (21:19)
[2024-04-08 21:39] LABS: Glucose - Point of Care 126 mg/dl (70-99)
[2024-04-08 23:00] VITALS: BP 152/75
[2024-04-09] VITALS (10 sets, daily range): BP systolic 115–155; BP diastolic 49–91
[2024-04-09] MEDS: DILAUDID 0.5 MG IV ×6 (00:37→23:12)
[2024-04-09] MEDS: ZOSYN 100 IV ×4 (01:31→20:11)
[2024-04-09] MEDS: VANCOCIN 530 MG IV (05:16)
[2024-04-09] MEDS: SYNTHROID 50 MCG PO (05:16)
[2024-04-09 07:17] LABS: Glucose - Point of Care 101 mg/dl (70-99)
--- NOTE | 2024-04-09 08:22 | W.PN.UPDATE ---
Addendum entered and electronically signed by Pa Landrum MD 04/09/24 13:12:
Patient seen and examined. AVSS. RLE with drainage from lower portion of incision with erythema about the lower leg. No intraarticular effusion. WBC normal. ESR and CRP mildly elevated. Impression. Wound infection which does not appear to
affect the joint. I have discussed I&D with wound closure and possible spacer replacement with the patient. Consent obtained. Last ate at 9AM. NPO now for OR later this afternoon.
Original Note:
Update Note
Progress Note Update
Patient up ambulating around the room. Feeling better overall but does not see much improvement around the knee. She is now 3.5 weeks out from her right TKA (Mar 31 Lucita). Continues with, what appears to be, a superficial infection of the
distal third incision, draining purulence. Afeb. WBC WNL. ESR 32. CRP 79.5 With faint erythema consistent with cellulitis of the RLE. ROM 0-100. Calf soft and compressible. has been working with PT. Continues on IV Vanco/Zosyn. wound culture with
polymicrobes. nonvascular ultrasound completed yesterday with no evidence of collection. shared a photo of the patient's knee with Dr. Landrum this morning. Discussed with the patient both ways of handling this. Continue with supportive measures,
K-pad, PT, and IV ABX or possibly a superficial I&D. Dr. Landrum to see the patient later today to discuss further. Appreciate hospitalist team and Dr. Velez. Will follow
[2024-04-09] MEDS: ASPIR LOW (ENTERIC COATED) 81 MG PO (08:51)
[2024-04-09] MEDS: LASIX 40 MG PO (08:52)
[2024-04-09] MEDS: OSCAL CAL 500 1000 MG PO (08:52)
[2024-04-09] MEDS: VITAMIN B-12 1000 MCG PO (08:52)
[2024-04-09] MEDS: PROTONIX 40 MG PO (08:52)
[2024-04-09] MEDS: CYMBALTA DELAYED RELEASE 60 MG PO (08:59)
[2024-04-09] MEDS: CRESTOR 10 MG PO (08:59)
[2024-04-09] MEDS: THERAGRAN 1 TABLET PO (08:59)
[2024-04-09] MEDS: WELLBUTRIN XL (24 hour extended release) 300 MG PO (08:59)
[2024-04-09 09:14] LABS: % Basophils 0.9 % (0-2); % Eosinophils 7.1 % (0-6); % Immature Granulocytes 0.4 % (0-0.5); % Lymphocytes 22.3 % (20.5-51.1); % Monocytes 14.5 % (1.7-9.3); % Neutrophils 54.8 % (42.2-75.2); Absolute Basophils 0.1 10^3/uL (0-0.2); Absolute Eosinophils 0.5 10^3/uL (0-0.7); Absolute Lymphocytes 1.6 10^3/uL (1.2-3.4); Absolute Neutrophils 3.9 10^3/uL (1.4-6.5); Hematocrit 29.6 % (37.0-47.0); Hemoglobin 9.6 g/dL (12.0-16.0); Mean Corp Hgb Conc. 32.4 g/dL (33.0-37.0); Mean Corpuscular Hgb 31.1 pg (27.0-31.0); Mean Corpuscular Volume 95.8 fL (81.0-99.0); Mean Platelet Volume 9.5 fL (7.4-10.4); Nucleated Red Blood Cells % 0 %; Platelet Count 310 10^3/uL (130-400); Red Blood Cell Count 3.09 10^6/uL (4.20-5.40); Red Cell Dist. Width 13.7 % (11.5-14.5); White Blood Cell Count 7.1 10^3/uL (4.8-10.8)
[2024-04-09] MEDS: NORCO 5/325 2 TABLET PO (09:14)
--- NOTE | 2024-04-09 09:24 | VNURNOTE ---
Chart reviewed.� Patient is current with [facility] nursing.� Will continue to follow hospital course and DC plans.
[2024-04-09 10:12] LABS: Blood Urea Nitrogen 17 mg/dl (7-17); Calcium 8.5 mg/dl (8.4-10.2); Carbon Dioxide 25 mmol/L (22-30); Chloride 105 mmol/L (98-107); Estimated Creatinine Clearance 45 ml/min; Glucose 85 mg/dl (70-99); Potassium 3.7 mmol/L (3.5-5.1); Sodium 141 mmol/L (135-145); eGFR 45.07
--- NOTE | 2024-04-09 10:26 | PHA.VAN.FU ---
Vancomycin Assessment / Plan
- Assessment
Renal Function: SCR Increasing (09.->1.3)
WBC's are: WNL
In the past 24 hrs, patient has been: Afebrile
Concomitant Antimicrobials: piperacillin/tazobactam
- Dosing Plan
Continue: vancomycin 1500 mg IV daily- first dose 04/08 0600 after 2000 mg 04/07
- Monitoring Plan
Trough Level: ordered for 04/10/24 0530
Monitoring Comments: nrsg instructed not to hang 0600 dose till trough results due to incr SCr
- Follow Up
Pharmacy will continue to follow.
Vancomycin Follow UP
- -
Patient Age: 68
Patient Sex: Female
Vancomycin Day #: 3
Indication: Skin And Soft Tissue
Requesting Provider: Dr. Waggoner
Pertinent Antimicrobial Allergies:
clindamycin - nausea / vomiting
sulfonamide antibiotics - itching
Height / Weight:
Height 5 ft 2 in
Actual Weight 93.128 kg
Pertinent Past Medical History: BMI ~38, DM
- Vital Signs / Lab Results
Temp Pulse Resp BP Pulse Ox
98.0 F 82 17 123/68 98
04/09/24 07:48 04/09/24 07:48 04/09/24 07:48 04/09/24 07:48 04/09/24 07:48
Lab Results - Hematology
04/07/24 04/08/24 04/09/24
11:31 06:27 08:26
WBC 9.8 8.7 7.1
Lab Results - Chemistry
04/07/24 04/08/24 04/09/24
11:31 06:27 08:26
BUN 24 H 16 17
Creatinine 1.0 0.9 1.3 H
Estimated Creat Clear 64 45
Albumin 3.8
Microbiology Results
04/07/24 14:43 Wound Culture - Preliminary
Leg - Right Staphylococcus aureus
Gram Stain - Preliminary
[2024-04-09 11:22] LABS: Glucose - Point of Care 128 mg/dl (70-99)
[2024-04-09 11:58] LABS: Erythrocyte Sed Rate 38 mm/hour (0-20)
--- NOTE | 2024-04-09 12:23 | CM ---
Addendum entered by aDily Santos 04/10/24 13:31:
Late note patient has home infusion benefit, will have OOP costs. await final script.
(Zosyn $310/wk, supplies $210 per week for double anbx, based on current orders)
Addendum entered by Daily Santos 04/09/24 13:49:
Plan: OR later today.
Original Note:
Patient seen bedside.
IA completed.
patient lives lone in a 1 story apartment.
Patient has 2 canes and a walker.
Patient has had [facility] in the past.
patient with multiple concerns re the cleanliness of the hospital and reuested clean sheets.
Per nursing possible IV anbx.
Discussed IV anbx with patient.
She is in agreement, options discussed and [facility] chosen, patient would also like [facility].
Will forward insurance information to [facility] to check benefit.
Sister will transport home.
PCP: Dr Ma
Pharmacy: [facility]
Plan: home with possible IV anbx and [facility] for infusion.
--- NOTE | 2024-04-09 13:46 | W.PN.HOSP.TC ---
Today's Communication/Plan
-
I&D of wound
post procedure, await ID input as to abx adjustment
Assessment / Plan
Assessment / Plan
1. Post surgical wound infection, complicated by diabetes, growing gram (+) cocci, Gram (+) rods and Gram (-) rods
Staph Aureus/MSSA cultured
WBC 9.8-->8.7-->7.1k
Broad spectrum abx
ID consult
currently on Zosyn/Vancomycin
Ortho consult, appreciated, ortho planning I&D of wound later today
2. Diabetes - currently controlled
Continue usual meds.
glu 81-87
3. BUN/Creat 17/1.3
4. Having significant pain
Pt requesting something stronger
will order prn IV Dilaudid for severe pain in addition to Hydrocodone for moderate pain
5. Known chronic medical issues:
Fatty liver disease, nonalcoholic
Diabetes mellitus type 2, noninsulin dependent
Type 2 diabetes mellitus with hyperglycemia
Primary osteoarthritis of left shoulder
Morbid obesity
Bilateral primary osteoarthritis of knee
Hypercholesteremia
Mixed hyperlipidemia
Major depressive disorder, single episode, mild
Lymphedema
Moderate persistent asthma
stable, no wheeze noted
Hx of cervical cancer
Obstructive sleep apnea
Benign paroxysmal positional vertigo, unspecified laterality
GERD without esophagitis
Essential (primary) hypertension
BP 127/60
Acquired hypothyroidism
History of bariatric surgery
Stage 3a chronic kidney disease
Charcot joint of left foot
Hx of malignant neoplasm of vulva
-Continue home meds for these
Full code
SCD for DVTp
Anticipated Discharge: 24 - 48 hours
Subjective/Interval History
-
Date of Service: April 09, 2024
In good spirits
Objective Data
-
Labs:
Laboratory Results
04/09/24
08:26
WBC 7.1
Hgb 9.6 L
Hct 29.6 L
Plt Count 310
Sodium 141
Potassium 3.7
Chloride 105
Carbon Dioxide 25
BUN 17
Creatinine 1.3 H
Glucose 85
Calcium 8.5
Vital Signs:
Vital Signs
Temp Pulse Resp BP Pulse Ox
98.0 F 82 17 123/68 98
04/09/24 07:48 04/09/24 07:48 04/09/24 07:48 04/09/24 07:48 04/09/24 07:48
I&O
04/08/24 04/09/24 04/10/24
06:59 06:59 06:59
Intake Total 2164
Balance 2164
Review of Systems
-
History Source: Patient and Coordinated Provider (reviewed with RN)
Constitutional: Denies Fever
EENT: Reports No Symptoms Reported
Respiratory: Reports No Symptoms
Cardiac: Reports No Symptoms; Denies Chest Pain
Abdomen/GI: Reports No Symptoms
Musculoskeletal: Reports Joint Pain and Other (rt leg pain)
Skin: Reports Rash (distal to leg incision site)
Physical Exam
-
General: Well Developed, Well Nourished, No Apparent Distress and Obese
HEENT: Normocephalic, Atraumatic and Moist Mucous Membranes
Respiratory: Clear to Auscultation; Negative Wheezes (no wheeze on forced expiration), Rales or Rhonchi
Cardiac: Regular Rhythm and S1/S2
GI: Soft, Nontender and Nondistended
Musculoskeletal: No Clubbing and No Cyanosis
Skin: Rash (cellulitic changes distal to incision site over knee on Rt, cellulitic changes minimally less intense)
Neuro: Awake, Alert and Oriented
Psych: Calm and Intact Judgement/Insight
[2024-04-09 15:00] LABS: Glycohemoglobin (HgbA1c) 4.5 % (4.0-5.6)
--- NOTE | 2024-04-09 18:43 | W.PN.UPDATE ---
Update Note
Progress Note Update
Patient taken to the OR for I&D of the right knee wound/dehiscience 3-4 weeks s/p right TKR. No gross collection. Cultures taken. Skin difficult to close due to poor soft tissues. Continue antibiotics. Dressing may be reinforced. Will follow.
[2024-04-09 18:52] LABS: Glucose - Point of Care 86 mg/dl (70-99)
[2024-04-09] MEDS: NEURONTIN 300 MG PO (20:11)
[2024-04-09] MEDS: PEPCID 40 MG PO (20:11)
[2024-04-09 21:35] LABS: Glucose - Point of Care 109 mg/dl (70-99)
[2024-04-10] MEDS: DILAUDID 0.5 MG IV ×2 (02:32→11:59)
[2024-04-10] MEDS: ZOSYN 100 IV ×4 (02:32→19:26)
[2024-04-10 03:00] VITALS: BP 104/65
[2024-04-10 06:16] LABS: Vancomycin Trough 13.5 ug/ml (5-20)
--- NOTE | 2024-04-10 06:23 | W.PN.ORTHO ---
Addendum entered and electronically signed by Pa Landrum MD 04/10/24 08:32:
Patient seen and examined this AM. Agree with below. Would favor a more aggressive than less aggressive antibiotic course to clear the cellulitis and local infection as the skin and soft tissues after debridement was difficult to close and her
knee joint is currently unaffected by the local wound dehiscience and cellulitis.
Original Note:
Today's Communication / Plan
-
68-year-old female POD 1 Right Knee I&D and closure 04/09/[address] Landrum.
- WBAT RLE with use of walker for assistance.
- PT/OT.
- Aspirin for DVT prophylaxis.
- OR cultures pending. Wound cultures from 04/07/2024 with S aureus -Methicillin Sensitive. Continue antibiotics (IV Vanco/Zosyn) per primary team/ID.
- Dressing changed this AM on rounds due to bloody saturation distally.
- Orthopedic surgery will continue to follow.
Assessment
.
Distal Motor Intact: Yes
Dressing:
Aquacel dressing with bloody saturation distally. Aquacel dressing was removed to reveal a well-approximated surgical incision with sutures intact. A fresh Aquacel dressing was applied.
Calf is soft and nontender to palpation.
Assessment:
POD 1 Right Knee I&D and Closure 04/09/[address] Landrum.
Plan
.
Surgery / Date: Right Knee I&D 04/09/[address] Landrum
DVT Prophylaxis: Aspirin
Activity:
Out of bed. WBAT RLE with use of walker for assistance.
PT/OT.
Discharge Plan: Other
Discharge Information:
Appreciate CM.
Subjective
.
.:
Patient resting comfortably in bed this AM. Denies any significant pain about her right knee. Denies any new complaints or concerns at this time.
Vital Signs and Labs
.
Vital Signs and Labs:
Lab Results
04/09/24 08:26
04/09/24 08:26
Temp Pulse Resp BP Pulse Ox
98.6 F 92 18 104/65 94
04/10/24 03:00 04/10/24 03:00 04/10/24 03:00 04/10/24 03:00 04/10/24 03:00
[2024-04-10] MEDS: SYNTHROID 50 MCG PO (06:31)
[2024-04-10] MEDS: VANCOCIN 530 MG IV (06:32)
[2024-04-10 07:15] VITALS: BP 96/59
[2024-04-10 08:17] LABS: Glucose - Point of Care 113 mg/dl (70-99)
[2024-04-10] MEDS: ASPIR LOW (ENTERIC COATED) 81 MG PO (10:47)
[2024-04-10] MEDS: PROTONIX 40 MG PO (10:47)
[2024-04-10] MEDS: WELLBUTRIN XL (24 hour extended release) 300 MG PO (10:47)
[2024-04-10] MEDS: CRESTOR 10 MG PO (10:47)
[2024-04-10] MEDS: CYMBALTA DELAYED RELEASE 60 MG PO (10:47)
[2024-04-10] MEDS: THERAGRAN 1 TABLET PO (10:47)
[2024-04-10] MEDS: LASIX 40 MG PO (10:47)
[2024-04-10] MEDS: OSCAL CAL 500 1000 MG PO (10:47)
--- NOTE | 2024-04-10 11:13 | W.PN.ID1 ---
Date of Service
Date of Service: April 10, 2024
Today's Communication
- agree with zosyn at this time, likely switch to cefazolin in the AM
- stopped vancomycin
- midline
- plan at least 2 weeks of IV therapy given proximity to hardwear and bmi
- tentative script provided to case resolution specialist
Assessment / Plan
Superficial R knee Surgical Site Infection
RAHEEL
- blood cultures x2
- superficial wound culture - gram stain polymicrobial, culture MSSA thus far x2
- xray without overt hardwear complication
- US - No findings to confirm abnormal focal fluid collection in the area of concern in the anterior soft tissues of the proximal right lower leg.
- will follow up OR note
- agree with makayla at this time, likely switch to cefazolin in the AM
- stopped vancomycin
- midline
- plan at least 2 weeks of IV therapy given proximity to hardwear and bmi
- tentative script provided to case resolution specialist
- follow clinically, final disposition likely tomorrow
Chief Complaint
-: Other (PJI)
Subjective / Review of Systems
afebrile
bp soft this am, otherwise stable
underwent right knee I&D
Vital Signs / Physical Exam
Vital Signs
Vital Signs
Temp Pulse Resp BP Pulse Ox
98.3 F 93 16 96/59 96
04/10/24 07:15 04/10/24 07:15 04/10/24 07:15 04/10/24 07:15 04/10/24 07:15
Physical Exam
Constitutional: No Acute Distress
Cardiovascular: Regular Rate and S1/S2; Negative Murmur or Rub
Pulmonary: Clear and Symmetric; Negative Wheezes or Rales
Gastrointestinal: Soft, Non Tender, Non Distended and Normal Bowel Sounds
Skin: Warm and Dry; Negative Rash or Jaundice
Objective Data
Lab Data
Lab Results
04/09/24 08:26
04/09/24 08:26
ESR 38 mm/hour (0-20) H 04/09/24 08:26
Estimated Creat Clear 45 ml/min 04/09/24 08:26
Total Bilirubin 0.6 mg/dl (0.2-1.3) 04/07/24 11:31
AST 33 U/L (14-36) 04/07/24 11:31
ALT 24 U/L (0-35) 04/07/24 11:31
Alkaline Phosphatase 105 U/L (38-126) 04/07/24 11:31
C-Reactive Protein 79.50 mg/L (0.0-10.00) H 04/07/24 11:31
Most recent labs reviewed.
Micro Results:
04/08/24 16:03 Wound Culture - Final
Abscess S aureus-Methicillin Sensitive
Gram Stain - Final
04/09/24 08:44 Blood Culture - Preliminary
Blood/Venous No Growth in 24 hours- Final report to follow
04/09/24 08:26 Blood Culture - Preliminary
Blood/Venous No Growth in 24 hours- Final report to follow
04/09/24 17:56 Wound Culture - Pending
Knee - Right Gram Stain - Preliminary
04/09/24 17:56 Anaerobic Culture - Pending
Knee - Right
04/07/24 14:43 Wound Culture - Final
Leg - Right S aureus-Methicillin Sensitive
Gram Stain - Final
Care Review
Plan reviewed with: Physician (Dr Radha aj)
[2024-04-10 11:25] VITALS: BP 114/72
[2024-04-10] MEDS: VITAMIN B-12 1000 MCG PO (11:49)
[2024-04-10 12:52] LABS: Glucose - Point of Care 160 mg/dl (70-99)
--- NOTE | 2024-04-10 13:15 | W.PN.HOSP.TC ---
Today's Communication/Plan
-
plan is for IV abx to be set up post dc
Assessment / Plan
Assessment / Plan
1. Post surgical wound infection, complicated by diabetes, growing gram (+) cocci, Gram (+) rods and Gram (-) rods
Staph Aureus/MSSA cultured
WBC 9.8-->8.7-->7.1k
Broad spectrum abx
ID consult
currently on Zosyn/Vancomycin
Ortho consult, appreciated, ortho performed I&D of wound 2/[address] Velez, will need home IV abx
2. Diabetes - currently controlled
Continue usual meds.
glu 81-87
3. BUN/Creat 17/1.3
4. Having significant pain
Pt requesting something stronger
will order prn IV Dilaudid for severe pain in addition to Hydrocodone for moderate pain. Pt made aware that will need to start decreasing narcotic analgesics, she relates continued pain
5. Known chronic medical issues:
Fatty liver disease, nonalcoholic
Diabetes mellitus type 2, noninsulin dependent
Type 2 diabetes mellitus with hyperglycemia
Primary osteoarthritis of left shoulder
Morbid obesity
Bilateral primary osteoarthritis of knee
Hypercholesteremia
Mixed hyperlipidemia
Major depressive disorder, single episode, mild
Lymphedema
Moderate persistent asthma
stable, no wheeze noted
Hx of cervical cancer
Obstructive sleep apnea
Benign paroxysmal positional vertigo, unspecified laterality
GERD without esophagitis
Essential (primary) hypertension
BP 127/60
Acquired hypothyroidism
History of bariatric surgery
Stage 3a chronic kidney disease
Charcot joint of left foot
Hx of malignant neoplasm of vulva
-Continue home meds for these
Full code
SCD for DVTp
Anticipated Discharge: 24 - 48 hours
Subjective/Interval History
-
Date of Service: April 10, 2024
In good spirits, but anxiously awaiting dc
Objective Data
-
Vital Signs:
Vital Signs
Temp Pulse Resp BP Pulse Ox
98 F 92 17 114/72 98
04/10/24 11:25 04/10/24 11:25 04/10/24 11:25 04/10/24 11:25 04/10/24 11:25
I&O
04/09/24 04/10/24 04/11/24
06:59 06:59 06:59
Intake Total 1889 1200 / 1200
Balance 1889 1200 / 1200
Review of Systems
-
History Source: Patient and Coordinated Provider (reviewed with RN)
Constitutional: Denies Fever
EENT: Reports No Symptoms Reported
Respiratory: Reports No Symptoms
Cardiac: Reports No Symptoms; Denies Chest Pain
Abdomen/GI: Reports No Symptoms
Musculoskeletal: Reports Joint Pain and Other (rt leg pain)
Skin: Reports Rash (distal to leg incision site)
Physical Exam
-
General: Well Developed, Well Nourished, No Apparent Distress and Obese
HEENT: Normocephalic, Atraumatic and Moist Mucous Membranes
Respiratory: Clear to Auscultation; Negative Wheezes (no wheeze on forced expiration), Rales or Rhonchi
Cardiac: Regular Rhythm and S1/S2
GI: Soft, Nontender and Nondistended
Musculoskeletal: No Clubbing and No Cyanosis
Skin: Rash (cellulitic changes distal to incision site over knee on Rt, cellulitic changes minimally less intense)
Neuro: Awake, Alert and Oriented
Psych: Calm and Intact Judgement/Insight
--- NOTE | 2024-04-10 13:26 | CM ---
Addendum entered by Daily Santos 04/10/24 16:15:
Medication OOP costs reviewed with patient. approx $181 per week.
Patient became upset stating she could not afford.
Reached out to [facility] re payment plan and updated ID MD.
Offered skilled rehab facility to patient for IV medications and she refused.
Patient reluctantly agreeable to Payment plan.
CM explained credit card would be required for a $25 payment to start and when first invoice is received she needs to call and request a payment plan.
patient does not have a credit card and will call her sister for card numbers.
Liaison from [facility] will call in am, patient aware and cell phone #[phone].
MD and ID MD aware patient will need to be d//c by 12 pm to receive medications at home and coordinate with infusion nurse.
Patient is planning on Ubering home.
Addendum entered by Daily Santos 04/10/24 14:30:
[facility] and [facility] coordinating for home infusion, await costs.
Original Note:
Script received, faxed to [facility] await OOP costs.
Referral placed for [facility].
Tentative d/c home tomorrow.
Await Midline placement, fax when available.
Plan: home with IV anbx thru [facility] and [facility].
[2024-04-10 15:05] VITALS: BP 143/72
[2024-04-10] MEDS: NORCO 5/325 2 TABLET PO ×3 (15:20→23:57)
[2024-04-10 17:26] LABS: Glucose - Point of Care 142 mg/dl (70-99)
[2024-04-10] MEDS: NEURONTIN 300 MG PO (19:22)
[2024-04-10] MEDS: PEPCID 40 MG PO (19:22)
[2024-04-10 21:56] LABS: Glucose - Point of Care 108 mg/dl (70-99)
[2024-04-10 23:00] VITALS: BP 120/60
[2024-04-11] MEDS: ZOSYN 100 IV ×2 (02:14→09:13)
[2024-04-11] MEDS: NORCO 5/325 2 TABLET PO ×3 (05:54→20:42)
[2024-04-11] MEDS: SYNTHROID 50 MCG PO (05:55)
[2024-04-11 07:00] VITALS: BP 143/77
[2024-04-11 07:09] LABS: % Basophils 1.3 % (0-2); % Eosinophils 3.1 % (0-6); % Immature Granulocytes 0.4 % (0-0.5); % Lymphocytes 35.5 % (20.5-51.1); % Monocytes 13.8 % (1.7-9.3); % Neutrophils 45.9 % (42.2-75.2); Absolute Basophils 0.1 10^3/uL (0-0.2); Absolute Eosinophils 0.2 10^3/uL (0-0.7); Absolute Monocytes 0.8 10^3/uL (0.1-0.6); Absolute Neutrophils 2.5 10^3/uL (1.4-6.5); Hematocrit 28.8 % (37.0-47.0); Hemoglobin 9.3 g/dL (12.0-16.0); Mean Corp Hgb Conc. 32.3 g/dL (33.0-37.0); Mean Corpuscular Hgb 30.7 pg (27.0-31.0); Mean Platelet Volume 9.3 fL (7.4-10.4); Nucleated Red Blood Cells % 0 %; Platelet Count 329 10^3/uL (130-400); Red Blood Cell Count 3.03 10^6/uL (4.20-5.40); Red Cell Dist. Width 13.7 % (11.5-14.5); White Blood Cell Count 5.5 10^3/uL (4.8-10.8)
[2024-04-11 07:31] LABS: Blood Urea Nitrogen 23 mg/dl (7-17); Calcium 8.8 mg/dl (8.4-10.2); Carbon Dioxide 27 mmol/L (22-30); Chloride 107 mmol/L (98-107); Estimated Creatinine Clearance 39 ml/min; Glucose 86 mg/dl (70-99); Potassium 3.8 mmol/L (3.5-5.1); Sodium 141 mmol/L (135-145); eGFR 37.96
--- NOTE | 2024-04-11 08:05 | W.PN.UPDATE ---
Update Note
Progress Note Update
Ms. Ledezma is a 68 year old female POD 1 following her right knee I&D with wound closure performed by Dr. Landrum on 04/09/2024. She is resting comfortably in bed this morning, and reports her knee is feeling much better. She has no questions or
concerns at this time. Midline has been placed.
Directed exam of the right lower extremity reveals surgical dressing with dried blood at the distal aspect of the incision. Otherwise dry and intact. Mild tenderness to palpation about the anterior knee. ROM without pain. Calf soft and nontender.
Neurovascularly intact distally.
Hgb 9.3. WBC WNL, decreased from yesterday.
Culture from abscess 04/08/23 growing MSSA. OR cultures pending, rare WBC with few gram positive cocci.
68-year-old female POD 2 Right Knee I&D and closure 04/09/[address] Landrum.
--WBAT RLE with use of walker for assistance. We appreciate the assistance of PT/OT.
--Recommend aspirin for DVT prophylaxis.
--Cultures per above. Continue abx per ID--currently Zosyn. Possible transition to cefazolin today. Midline placed.
--Orthopedic surgery will continue to follow.
[2024-04-11 08:07] LABS: Glucose - Point of Care 100 mg/dl (70-99)
[2024-04-11] MEDS: LASIX 40 MG PO (09:13)
[2024-04-11] MEDS: CRESTOR 10 MG PO (09:13)
[2024-04-11] MEDS: OSCAL CAL 500 1000 MG PO (09:14)
[2024-04-11] MEDS: ASPIR LOW (ENTERIC COATED) 81 MG PO (09:14)
[2024-04-11] MEDS: WELLBUTRIN XL (24 hour extended release) 300 MG PO (09:14)
[2024-04-11] MEDS: PROTONIX 40 MG PO (09:14)
[2024-04-11] MEDS: CYMBALTA DELAYED RELEASE 60 MG PO (09:14)
[2024-04-11] MEDS: THERAGRAN 1 TABLET PO (09:14)
[2024-04-11] MEDS: VITAMIN B-12 1000 MCG PO (09:14)
[2024-04-11] MEDS: ROXICODONE 5 MG PO (09:25)
--- NOTE | 2024-04-11 12:06 | CM ---
Addendum entered by Daily Santos 04/11/24 16:48:
Spoke with ID discussed patients inability to recall teaching from earlier.
Will hold off on IV anbx.
Original Note:
Patient seen bedside.
[facility] in to do teaching for home IV anbx.
Concerns re ability to give medication.
Nursing will review with patient.
MD updated.
Spoke with Dana from [facility], if patient will be d/c home on IV anbx, then they would prefer d/c tomorrow after am dose so Terri RN can be with patient for afternoon dose to reinforce teaching and watch patient administer.
Discussed with patient who was very upset that she was not d/c home today 6720would not be able to be discharged as Terri WADDELL could not meet her for an evening dose only afternoon. First dose of anbx needs to be given here to make sure patient
tolerates medication for [facility] guidelines.
Will continue to follow for d/c home.
Patient will work on transportation, may need assistance.
IMM completed.
Plan: possibly home tomorrow with [facility] and [facility]
fax# [phone]
[facility]
--- NOTE | 2024-04-11 12:30 | PTCARENOTE ---
communicated concern with pt's ability to administer IV ABT. [facility] to complete pt EDU
[2024-04-11] MEDS: ANCEF 10 IV ×2 (12:38→19:56)
--- NOTE | 2024-04-11 12:49 | W.PN.HOSP.TC ---
Today's Communication/Plan
-
abx adjusted as per ID
Assessment / Plan
Assessment / Plan
1. Post surgical wound infection, complicated by diabetes, growing gram (+) cocci, Gram (+) rods and Gram (-) rods
Staph Aureus/MSSA cultured
WBC 9.8-->8.7-->7.1-->5.5k
abx as per ID
ID consult
currently on Zosyn/Vancomycin
Ortho consult, appreciated, ortho performed I&D of wound 2/[address] Velez, will need home IV abx. Midline has been placed
2. Diabetes - currently controlled
Continue usual meds.
glu 81-87
3. BUN/Creat 17/1.3-->23/1.5
4. Was having significant pain
better now and off prn Dilaudid
5. Known chronic medical issues:
Fatty liver disease, nonalcoholic
Diabetes mellitus type 2, noninsulin dependent
Type 2 diabetes mellitus with hyperglycemia
Primary osteoarthritis of left shoulder
Morbid obesity
Bilateral primary osteoarthritis of knee
Hypercholesteremia
Mixed hyperlipidemia
Major depressive disorder, single episode, mild
Lymphedema
Moderate persistent asthma
stable, no wheeze noted
Hx of cervical cancer
Obstructive sleep apnea
Benign paroxysmal positional vertigo, unspecified laterality
GERD without esophagitis
Essential (primary) hypertension
BP 127/60
Acquired hypothyroidism
History of bariatric surgery
Stage 3a chronic kidney disease
Charcot joint of left foot
Hx of malignant neoplasm of vulva
-Continue home meds for these
Full code
SCD for DVTp
Discussed with PEDRO Hameed. Due to logistical aspects will need to hold dc, potential tomorrow. Await abx ordering as per ID
Anticipated Discharge: Within 24 hours
Subjective/Interval History
-
Date of Service: April 11, 2024
Leg feels better, looking forward to dc
Objective Data
-
Labs:
Laboratory Results
04/11/24
06:43
WBC 5.5
Hgb 9.3 L
Hct 28.8 L
Plt Count 329
Sodium 141
Potassium 3.8
Chloride 107
Carbon Dioxide 27
BUN 23 H
Creatinine 1.5 H
Glucose 86
Calcium 8.8
Vital Signs:
Vital Signs
Temp Pulse Resp BP Pulse Ox
98.0 F 86 18 143/77 96
04/11/24 07:00 04/11/24 07:00 04/11/24 07:00 04/11/24 09:13 04/11/24 07:00
I&O
04/10/24 04/11/24 04/12/24
06:59 06:59 06:59
Intake Total 1200 / 1200
Balance 1200 / 1200
Review of Systems
-
History Source: Patient and Coordinated Provider (reviewed with RN)
Constitutional: Denies Fever
EENT: Reports No Symptoms Reported
Respiratory: Reports No Symptoms
Cardiac: Reports No Symptoms; Denies Chest Pain
Abdomen/GI: Reports No Symptoms
Musculoskeletal: Reports Joint Pain and Other (rt leg pain)
Skin: Reports Rash (distal to leg incision site)
Physical Exam
-
General: Well Developed, Well Nourished, No Apparent Distress and Obese
HEENT: Normocephalic, Atraumatic and Moist Mucous Membranes
Respiratory: Clear to Auscultation; Negative Wheezes (no wheeze on forced expiration), Rales or Rhonchi
Cardiac: Regular Rhythm and S1/S2
GI: Soft, Nontender and Nondistended
Musculoskeletal: No Clubbing and No Cyanosis
Skin: Rash (cellulitic changes distal to incision site over knee on Rt, cellulitic changes markedly less intense)
Neuro: Awake, Alert and Oriented
Psych: Calm and Intact Judgement/Insight
[2024-04-11 13:06] LABS: Glucose - Point of Care 90 mg/dl (70-99)
--- NOTE | 2024-04-11 14:00 | PTCARENOTE ---
pt unable to recall steps for IV ABT administration. appears anxious. Pt offers many complaints from bed not changed, to [facility] nurse coughing, dust coming from vent, etc. No dust observed. reassurance provided. This nurse changed pt's
bedding. PCT informed in front of patient: 'I changed her bedding this morning.' Pt replied 'I forgot.' Reassurance again provided, expressed the need for a safe D/C plan despite pt's frustrations stating 'I just want to get out of here. They told
me I could go home but now I can't'
--- NOTE | 2024-04-11 14:45 | PTCARENOTE ---
Pt brought back to unit by nursing business practices supervisor, was ambulating in hallway and was unable to tell a concerned staff member her room number. Pt became agitated and upset when being asked and was escorted back to her room. Pt was very upset, tearful and
yelling. 'This is crazy I have to get out of here.' Again offering numerous complaints, stating her bed was broken. This nurse found no issues with bed. Pt stated 'they tell me to walk around but then yell at me when I do.' This nurse offered to
ambulate with pt. Pt stated 'the TV there's something weird with the remote, she (roommate) keeps crying. I can't stay here.' Lots of reassurance and time spent with pt. Contacted volunteer services and gave pt Ipad and crosswords. Pt antonino RothOB
to chair, although she states she doesn't like the chair because it is too hard to recline (assistance provided) pt did decline a different chair which was offered. CB in reach encouraged to use.
[2024-04-11 15:00] VITALS: BP 143/68
--- NOTE | 2024-04-11 16:40 | W.PN.ID1 ---
Addendum entered and electronically signed by Dunia Velez MD 04/12/24 16:32:
<del>Reviewed</del> <del>my</del> <del>plan</del> <del>with</del> <del>Dr</del> <del>Lucita</del> <del>at</del> <del>Ms</del> <del>Kennedys</del> <del>request.</del> <del>He</del> <del>comment</del> <del>that</del> <del>he</del> <del>will</del>
<del>follow</del> <del>up</del> <del>with</del> <del>her</del> <del>outpatient</del> <del>and</del> <del>if</del> <del>he</del> <del>feels</del> <del>she</del> <del>need</del> <del>additional</del> <del>antibiotics</del> <del>beyond</del>
<del>the</del> <del>two</del> <del>weeks</del> <del>that</del> <del>he</del> <del>will</del> <del>prescribe</del> <del>them.</del> <del>A</del> <del>long</del> <del>course</del> <del>of</del> <del>treatment</del> <del>for</del> <del>skin</del>
<del>and</del> <del>soft</del> <del>tissue</del> <del>infection</del> <del>is</del> <del>typically</del> <del>two</del> <del>weeks.</del>
<del>AW</del>
This addendum should have been added to the 04/12 note but in error was added to the 04/11 note.
Addendum entered and electronically signed by Dunia Velez MD 04/12/24 14:50:
Reviewed my plan with Dr Landrum at [facility]. He comment that he will follow up with her outpatient and if he feels she need additional antibiotics beyond the two weeks that he will prescribe them. A long course of treatment for skin and
soft tissue infection is typically two weeks.
AW
Original Note:
Date of Service
Date of Service: April 11, 2024
Today's Communication
- started cefazolin; stop zosyn
- midline
- currently plan at least 2 weeks of IV therapy given proximity to hardwear and bmi
reviewed with nursing staff and sister (oncologist) Monica Ledezma - Monica reports that family have intermittently observed memory troubles, that she can be forgetful. 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 RN reports
she had no recollection of how to give herself the infusion. We will observe another dose this evening, if I am not confident that patient will be safe with home IV antibiotics I will not be willing to prescribe them and other options may need to
be further expolored. I understand she vehemently refuses placement and has been refusing placement for over 5 years.
- follow clinically, reattempt to arrange as safe discharge
Assessment / Plan
Superficial R knee Surgical Site Infection
RAHEEL
By report history of biopolar disorder
- cultures x3 MSSA
- blood cultures no growth to date
- started cefazolin; stop zosyn
- midline
- currently plan at least 2 weeks of IV therapy given proximity to hardwear and bmi
reviewed with nursing staff and sister (oncologist) Monica Anderson reports that family have intermittently observed memory troubles, that she can be forgetful. 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 RN reports
she had no recollection of how to give herself the infusion. We will observe another dose this evening, if I am not confident that patient will be safe with home IV antibiotics I will not be willing to prescribe them and other options may need to
be further expolored. I understand she vehemently refuses placement and has been refusing placement for over 5 years.
- follow clinically, reattempt to arrange as safe discharge
Chief Complaint
-: Other (PJI)
Subjective / Review of Systems
afebrile
bp stable
reviewed with nursing staff and sister (oncologist) Monica Ledezma - Monica reports that family have intermittently observed memory troubles, that she can be forgetful. 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 RN reports
she had no recollection of how to give herself the infusion. We will observe another dose this evening, if I am not confident that patient will be safe with home IV antibiotics I will not be willing to prescribe them and other options may need to
be further expolored. I understand she vehemently refuses placement and has been refusing placement for over 5 years.
Vital Signs / Physical Exam
Vital Signs
Vital Signs
Temp Pulse Resp BP Pulse Ox
97.9 F 81 18 143/68 96
04/11/24 15:00 04/11/24 15:00 04/11/24 15:00 04/11/24 15:00 04/11/24 15:00
Physical Exam
Constitutional: No Acute Distress
Cardiovascular: Regular Rate and S1/S2; Negative Murmur or Rub
Pulmonary: Clear and Symmetric; Negative Wheezes or Rales
Gastrointestinal: Soft, Non Tender, Non Distended and Normal Bowel Sounds
Skin: Warm and Dry; Negative Rash or Jaundice
Wound: Other (strike through on the dressing )
Lines: Other (midline)
Objective Data
Lab Data
Lab Results
04/11/24 06:43
04/11/24 06:43
ESR 38 mm/hour (0-20) H 04/09/24 08:26
Estimated Creat Clear 39 ml/min 04/11/24 06:43
Total Bilirubin 0.6 mg/dl (0.2-1.3) 04/07/24 11:31
AST 33 U/L (14-36) 04/07/24 11:31
ALT 24 U/L (0-35) 04/07/24 11:31
Alkaline Phosphatase 105 U/L (38-126) 04/07/24 11:31
C-Reactive Protein 79.50 mg/L (0.0-10.00) H 04/07/24 11:31
Most recent labs reviewed.
Micro Results:
04/09/24 17:56 Anaerobic Culture - Preliminary
Knee - Right Culture pending. Anaerobic cultures are examined after 3
days incubation. Additional information to follow.
04/09/24 17:56 Wound Culture - Preliminary
Knee - Right S aureus-Methicillin Sensitive
Gram Stain - Preliminary
04/09/24 08:26 Blood Culture - Preliminary
Blood/Venous No Growth in 48 hours- Final report to follow
04/09/24 08:44 Blood Culture - Preliminary
Blood/Venous No Growth in 48 hours- Final report to follow
04/08/24 16:03 Wound Culture - Final
Abscess S aureus-Methicillin Sensitive
Gram Stain - Final
04/07/24 14:43 Wound Culture - Final
Leg - Right S aureus-Methicillin Sensitive
Gram Stain - Final
--- NOTE | 2024-04-11 17:00 | PTCARENOTE ---
pt's sister called nurses station asking why pt was not being D/C'd when pt reported to her that she was able administer IV abt. reviewed that pt was agitated this morning and forgetful. pt's sister Monica stated 'I told her these places won't take
her on as a patient if she's a problem- she said she was angry with him and she pissed him off' (referring to home infusion nurse.) This nurse reported that hours later patient was still so upset she was unable to recall or perform IV ABT
administration. pt's sister expressed frustration with D/C planning. support offered. Pt later called this nurse in to see her, angry again stating 'some nurse told my sister that I wasn't able to do the antibiotic, and I think I was half asleep I
probably could have but you didn't give me a chance' This nurse again reviewed D/C planning and assured pt the healthcare team is only trying to assure a safe D/C plan is in place.
[2024-04-11 17:29] LABS: Glucose - Point of Care 97 mg/dl (70-99)
[2024-04-11] MEDS: PEPCID 40 MG PO (19:56)
[2024-04-11] MEDS: NEURONTIN 300 MG PO (19:56)
[2024-04-11 21:53] LABS: Glucose - Point of Care 113 mg/dl (70-99)
[2024-04-11 23:00] VITALS: BP 163/76
[2024-04-12] MEDS: NORCO 5/325 2 TABLET PO ×5 (00:58→21:57)
[2024-04-12] MEDS: ANCEF 10 IV ×3 (05:00→20:36)
[2024-04-12] MEDS: SYNTHROID 50 MCG PO (05:39)
[2024-04-12 05:43] VITALS: BMI 36.0
--- NOTE | 2024-04-12 07:07 | W.PN.ORTHO ---
Today's Communication / Plan
-
Patient's right knee/lower extremity appears significantly improved
Leave Aquacel dressing in place for now
Ice with elevation to control swelling and pain
Cefazolin per ID recommendations
Physical therapy while patient here and she may walk the halls with her walker but stay on the unit
Aspirin 81 mg along with mechanical devices for DVT prophylaxis
From orthopedic standpoint she is stable for discharge today, follow-up with Dr. Landrum next Tuesday for wound check
Appreciate medical team input
Assessment
.
Distal Motor Intact: Yes
Dressing:
New Aquacel applied.
Plan
.
Surgery / Date: Right Knee I&D 04/09/[address] Landrum
DVT Prophylaxis: Aspirin
Activity:
Out of bed.
PT/OT
Subjective
.
.:
Patient resting comfortably.
Vital Signs and Labs
.
Vital Signs and Labs:
Lab Results
04/11/24 06:43
04/11/24 06:43
Temp Pulse Resp BP Pulse Ox
98.0 F 91 18 163/76 95
04/11/24 23:00 04/11/24 23:00 04/11/24 23:00 04/11/24 23:00 04/11/24 23:00
Cult MSSA
Physical Exam
-
Right knee Aquacel dressing removed. Numerous interrupted sutures noted lower half of her incision. Incision is well-approximated. There is bloody drainage about the incision and Aquacel. Incision was cleaned then wiped with Betadine. No active
drainage noted. No palpable fluid collection in the superficial tissues under the incision. No effusion noted within the knee. Passive motion 0 to 110 degrees without pain. Erythema around the anterior aspect of the knee and down into the
pretibial region resolved. No pain noted within the soft tissues. Calf is soft and nontender. Distal neurovascular was intact. New Aquacel applied.
[2024-04-12 07:21] LABS: Glucose - Point of Care 93 mg/dl (70-99)
[2024-04-12 07:44] VITALS: BP 153/81
[2024-04-12] MEDS: WELLBUTRIN XL (24 hour extended release) 300 MG PO (09:46)
[2024-04-12] MEDS: THERAGRAN 1 TABLET PO (09:46)
[2024-04-12] MEDS: LASIX 40 MG PO (09:46)
[2024-04-12] MEDS: VITAMIN B-12 1000 MCG PO (09:46)
[2024-04-12] MEDS: PROTONIX 40 MG PO (09:46)
[2024-04-12] MEDS: ASPIR LOW (ENTERIC COATED) 81 MG PO (09:47)
[2024-04-12] MEDS: CRESTOR 10 MG PO (09:47)
[2024-04-12] MEDS: OSCAL CAL 500 1000 MG PO (09:47)
[2024-04-12] MEDS: CYMBALTA DELAYED RELEASE 60 MG PO (09:47)
--- NOTE | 2024-04-12 11:16 | CM ---
Addendum entered by Daily Santos 04/12/24 15:31:
Met with sister Monica and patient.
Patient demonstrated medication administration with RN, sister also in attendance to learn.
Patients sister will transport home tomorrow at 4 pm.
Medications to be delivered to sisters home at:
[id number] ([address] says [address])
[place] [id number]
Sisters spouse will be at the home [phone]
Sister Monica's phone number [phone]
Per [facility] window for medication deliver 1-3 pm
Per Terri RN to be at home between 5-5:30
Sister updated.
Addendum entered by Daily Santos 04/12/24 14:36:
TC from Monica Ledezma (sister) re home IV anbx.
Monica is in agreement to administer medications at home 3 x per day for her sister.
Per Monica she would like to speak with CM to arrange in patients room.
Spoke with nursing at the hospital they would be able to teach the infusion to the patients sister.
Spoke with Dana from [facility], need to update in am re d/c, so delivery of supplies and medications can be arranged.
Spoke with Deb from [facility], nurse available at 5 pm tomorrow for home teaching.
MDs updated.
Addendum entered by Daily Santos 04/12/24 13:46:
Patient continues to decline skilled rehab.
CM will continue to follow for d/c plan.
[facility] and [facility] continue to follow loosely.
Original Note:
TC from patients sister Monica this am to discuss d/c plans.
Monica feels patient may be able to learn the IV anbx and per patient was distracted yesterday.
CM discussed that reinforcement was provided by nursing and patient still was unable to recall.
Sister seemed to be leaning towards patient going home with the anbx and maybe having someone else teach patient again.
Monica could provide transportation home, but could not commit to administer the medications 3x per day.
Discussed with Monica that CM encouraged skilled rehab with patient and patient declined.
CM spoke with MD today and there is a possibility patient may agree to skilled rehab.
CM will again discuss skilled rehab if ID in agreement.
PT/OT evals ordered..
Plan: to be determined based on IV anbx.
[2024-04-12 11:26] LABS: Glucose - Point of Care 127 mg/dl (70-99)
--- NOTE | 2024-04-12 11:39 | W.PN.HOSP.TC ---
Today's Communication/Plan
-
potential dc to home tomorrow
Discussed with PEDRO Hameed
Assessment / Plan
Assessment / Plan
1. Post surgical wound infection, complicated by diabetes, growing gram (+) cocci, Gram (+) rods and Gram (-) rods
Staph Aureus/MSSA cultured
WBC 9.8-->8.7-->7.1-->5.5k
abx as per ID, now on Ancef 2 gms q8h
ID consult
currently on Zosyn/Vancomycin
Ortho consult, appreciated, ortho performed I&D of wound 2/[address] Velez, will need home IV abx. Midline has been placed, concern whether pt is capable of giving herself abx. She remains very hesitant on transfer to SNF. Will need to make decision on disposition, reviewed with sister, .
[place](POA). Continue Ancef for now. Pt told me that she would be willing to go to a SNF. Await her meeting with PEDRO
2. Diabetes - currently controlled
Continue usual meds.
glu 81-87
3. BUN/Creat 17/1.3-->23/[address] Lasix on hold, recheck BUN/Creat tomorrow
4. Was having significant pain
better now and off prn Dilaudid
5. Known chronic medical issues:
Fatty liver disease, nonalcoholic
Diabetes mellitus type 2, noninsulin dependent
Type 2 diabetes mellitus with hyperglycemia
Primary osteoarthritis of left shoulder
Morbid obesity
Bilateral primary osteoarthritis of knee
Hypercholesteremia
Mixed hyperlipidemia
Major depressive disorder, single episode, mild
Lymphedema
Moderate persistent asthma
stable, no wheeze noted
Hx of cervical cancer
Obstructive sleep apnea
Benign paroxysmal positional vertigo, unspecified laterality
GERD without esophagitis
Essential (primary) hypertension
BP 127/60
Acquired hypothyroidism
History of bariatric surgery
Stage 3a chronic kidney disease
Charcot joint of left foot
Hx of malignant neoplasm of vulva
-Continue home meds for these
Full code
SCD for DVTp
Discussed with PEDRO Hameed. Due to logistical aspects will need to hold dc, potential tomorrow. Ancef 2 gm q8h abx ordering as per ID
Latest update, ID does not feel comfortable allowing pt to self administer IV abx. Pt refuses to go to SNF. Sister, Monica Ledezma notified CM that she would be willing to administer
Abx to complete on 04/21
extensive amount of time spent on this issue
Anticipated Discharge: 24 - 48 hours
Subjective/Interval History
-
Date of Service: April 12, 2024
Awake, alert
Objective Data
-
Vital Signs:
Vital Signs
Temp Pulse Resp BP Pulse Ox
98.3 F 90 18 153/81 95
04/12/24 07:44 04/12/24 07:44 04/12/24 07:44 04/12/24 07:44 04/12/24 07:44
I&O
04/11/24 04/12/24 04/13/24
06:59 06:59 06:59
Intake Total 480 / 480 480 / 480
Balance 480 / 480 480 / 480
Review of Systems
-
History Source: Patient, Family (reviewed with sister, Dr. Ledezma), Physician (reviewed with Dr. Velez) and Coordinated Provider (reviewed with RN)
Constitutional: Denies Fever
EENT: Reports No Symptoms Reported
Respiratory: Reports No Symptoms
Cardiac: Reports No Symptoms; Denies Chest Pain
Abdomen/GI: Reports No Symptoms
Musculoskeletal: Reports Joint Pain and Other (rt leg pain)
Skin: Reports Rash (distal to leg incision site)
Physical Exam
-
General: Well Developed, Well Nourished, No Apparent Distress and Obese
HEENT: Normocephalic, Atraumatic and Moist Mucous Membranes
Respiratory: Clear to Auscultation; Negative Wheezes (no wheeze on forced expiration), Rales or Rhonchi
Cardiac: Regular Rhythm and S1/S2
GI: Soft, Nontender and Nondistended
Musculoskeletal: No Clubbing and No Cyanosis
Skin: Rash (cellulitic changes distal to incision site over knee on Rt, cellulitic changes markedly less intense)
Neuro: Awake, Alert and Oriented
Psych: Calm and Intact Judgement/Insight
--- NOTE | 2024-04-12 14:07 | W.PN.ID1 ---
Addendum entered and electronically signed by Dunia Velez MD 04/12/24 16:31:
Discussed plan with Dr Hansen at patient request. He will see her in follow up. We discussed duration and he comments that if he feels further antibiotics are indicated at the follow up visit that he will prescribe them. One to two weeks is the
typical duration for skin and soft tissue infections; I feel the planned course is appropriately aggressive for the diagnosis and patient history.
Original Note:
Date of Service
Date of Service: April 12, 2024
Today's Communication
- c/w cefazolin
- has midline
- plan 2 weeks of IV therapy 2/2 (first full day of administration) through 04/21
Assessment / Plan
Superficial R knee Surgical Site Infection
RAHEEL
By verbal report history of biopolar disorder
- wound cultures x3 MSSA
- blood cultures no growth to date
- RAHEEL management per IM service
- c/w cefazolin
- has midline
- plan 2 weeks of IV therapy 2/2 (first full day of administration) through 04/21
- note that oral doses would result in approximately 30% less bioavailability and in this high risk case I would not recommend them.
Discussed at length with patient, patients sister Monica Ledezma MD (practicing oncologist), patients RN today, Dr Garcia and case management. Outlined for patient the risks she is facing. Briefly, there is very little tissue between the MSSA
infection and the knee joint itself. At this time, it appears that the prosthetic joint is not yet infected. She is at high risk of acquiring infection of the joint itself particularly if she is not willing or able to be compliant with therapy. I
outlined in detail to the patient and also her sister Monica that risks include and are not limited to - developing a skylar PJI and requiring a re-do surgery before she has completed significant rehab and while her muscles are still weak leading to a
much more difficult recovery, need for at least 6 weeks of IV antibiotics followed by suppression, possible complications of redo surgery. In short, the risks of inadequate treatment here are very high.
I am convinced she is willing to administer home IV antibiotics, but our initial evaluation with nursing staff from [facility] resulted in concerns that she might not be able to fully execute the steps resulting in the unusual request that our
nursing staff here observe whether she was able to administer the next dose. Unfortunately she was not able to follow 'any of the steps' on the next attempt later yesterday. Patient comments she was sleepy at that time and 'probably just didnt
want to do it.' I find that comment concerning as she will need to attend to herself three times daily. This AM, I personally sat with her with the hand out and re-reviewed each step approximately 30 minutes before she was to undergo another
evaluation with our nursing staff. Unfortunately on reassessment with nursing she continued to need prompting and it was not clear that she would be able to do all of the steps unassisted. I did suggest that if family were available to supervise
the thrice daily infusions that would be acceptable but that with her currently demonstrated level of ability to administer the drugs I was not comfortable prescribing the outpatient IV antibiotics. Additional risks when a patient is not able to
properly administer antibiotics include line infection, endocarditis, stroke, , and as stated before progression of the known infection. I explained in detail alternatives including once daily infusions of daptomycin at our OID department (she
would require transportation), family transport patient to OID once for dalbavancin - long acting lipoglycopeptide, and placement at a nursing facility for the duration of antibiotics. In my opinion, placement is the most feasible and safest for
the patient. Patient Mamta and Monica refused any of these options. We explained in that case she could consider leaving against medical advise or stay here to complete the infusions, but with the current understanding of her abilities and lack of
a caregiver to assist with supervision, I feel the risk of patient directed home IV infusion outweight the benefits. Later I got a tiger text from case management that Monica is now stating that she will supervise the three times daily
administrations and she will personally undergo teaching with [facility]. Monica is a practicing MD herself, has clearly articulated her understanding of the significant risks if administrations are not done properly or missed and is willing to
assume responsibility for her sister by committing to supervise the process. Given Monica's willingness to supervise her sister, the risks of outpatient IV antibiotic administration are acceptable though of course not zero.
Chief Complaint
-: Other (PJI)
Subjective / Review of Systems
afebrile
bp stable
RAHEEL
no medical complaints
upset at the idea of placement
Vital Signs / Physical Exam
Vital Signs
Vital Signs
Temp Pulse Resp BP Pulse Ox
98.3 F 90 18 153/81 95
04/12/24 07:44 04/12/24 07:44 04/12/24 07:44 04/12/24 07:44 04/12/24 07:44
Physical Exam
Constitutional: No Acute Distress
Cardiovascular: Regular Rate and S1/S2; Negative Murmur or Rub
Pulmonary: Clear and Symmetric; Negative Wheezes or Rales
Gastrointestinal: Soft, Non Tender, Non Distended and Normal Bowel Sounds
Skin: Warm and Dry; Negative Rash or Jaundice
Wound: Other (mild strike through on the surgical dressing - unchanged)
Objective Data
Lab Data
Lab Results
04/11/24 06:43
04/11/24 06:43
ESR 38 mm/hour (0-20) H 04/09/24 08:26
Estimated Creat Clear 39 ml/min 04/11/24 06:43
Total Bilirubin 0.6 mg/dl (0.2-1.3) 04/07/24 11:31
AST 33 U/L (14-36) 04/07/24 11:31
ALT 24 U/L (0-35) 04/07/24 11:31
Alkaline Phosphatase 105 U/L (38-126) 04/07/24 11:31
C-Reactive Protein 79.50 mg/L (0.0-10.00) H 04/07/24 11:31
Most recent labs reviewed.
Micro Results:
04/09/24 08:44 Blood Culture - Preliminary
Blood/Venous No Growth in 72 hours- Final report to follow
04/09/24 08:26 Blood Culture - Preliminary
Blood/Venous No Growth in 72 hours- Final report to follow
04/09/24 17:56 Wound Culture - Preliminary
Knee - Right S aureus-Methicillin Sensitive
Gram Stain - Preliminary
04/09/24 17:56 Anaerobic Culture - Preliminary
Knee - Right Culture pending. Anaerobic cultures are examined after 3
days incubation. Additional information to follow.
04/08/24 16:03 Wound Culture - Final
Abscess S aureus-Methicillin Sensitive
Gram Stain - Final
04/07/24 14:43 Wound Culture - Final
Leg - Right S aureus-Methicillin Sensitive
Gram Stain - Final
[2024-04-12 15:29] VITALS: BP 161/81
--- NOTE | 2024-04-12 16:45 | PTCARENOTE ---
Observed patient practicing self administering medication while teaching sister, Monica, administration technique (used syringes of NSS for practice as Ancef was not due at this time). Patient maintained clean injection technique. Did get easily
distracted, however was able to reference the printed educational sheet previously provided by [facility] sales representative wire rope to get back on track with each step.
[2024-04-12 16:49] LABS: Glucose - Point of Care 118 mg/dl (70-99)
[2024-04-12 18:26] VITALS: BP 155/82
[2024-04-12] MEDS: FLUSH (NSS) 1 FLUSH IV (20:36)
[2024-04-12] MEDS: PEPCID 40 MG PO (20:37)
[2024-04-12] MEDS: NEURONTIN 300 MG PO (20:37)
[2024-04-13 00:27] VITALS: BP 120/83
[2024-04-13] MEDS: DILAUDID 0.5 MG IV ×3 (02:38→11:34)
[2024-04-13] MEDS: FLUSH (NSS) 2 FLUSH IV (04:59)
[2024-04-13] MEDS: SYNTHROID 50 MCG PO (04:59)
[2024-04-13] MEDS: ANCEF 10 IV ×2 (04:59→11:34)
[2024-04-13 05:56] LABS: % Basophils 0.9 % (0-2); % Eosinophils 5.5 % (0-6); % Immature Granulocytes 0.4 % (0-0.5); % Monocytes 11.5 % (1.7-9.3); % Neutrophils 54.7 % (42.2-75.2); Absolute Basophils 0.1 10^3/uL (0-0.2); Absolute Eosinophils 0.4 10^3/uL (0-0.7); Absolute Lymphocytes 2.1 10^3/uL (1.2-3.4); Absolute Monocytes 0.9 10^3/uL (0.1-0.6); Absolute Neutrophils 4.2 10^3/uL (1.4-6.5); Hematocrit 30.7 % (37.0-47.0); Hemoglobin 10.3 g/dL (12.0-16.0); Mean Corp Hgb Conc. 33.6 g/dL (33.0-37.0); Mean Corpuscular Hgb 31.1 pg (27.0-31.0); Mean Corpuscular Volume 92.7 fL (81.0-99.0); Mean Platelet Volume 9.1 fL (7.4-10.4); Nucleated Red Blood Cells % 0 %; Platelet Count 379 10^3/uL (130-400); Red Blood Cell Count 3.31 10^6/uL (4.20-5.40); Red Cell Dist. Width 13.1 % (11.5-14.5); White Blood Cell Count 7.6 10^3/uL (4.8-10.8)
--- NOTE | 2024-04-13 06:08 | W.PN.ORTHO ---
Today's Communication / Plan
-
Leave Aquacel dressing in place for now
Ice with elevation to control swelling and pain
Cefazolin per ID recommendations
Physical therapy while patient here and she may walk the halls with her walker but stay on the unit
Aspirin 81 mg along with mechanical devices for DVT prophylaxis
From orthopedic standpoint she is stable for discharge today, follow-up with Dr. Landrum next Tuesday for wound check
Appreciate medical team input
Assessment
.
Distal Motor Intact: Yes
Dressing:
Clean, dry and intact.
Plan
.
Surgery / Date: Right Knee I&D 04/09/[address] Landrum
Activity:
Out of bed.
PT/OT
Subjective
.
.:
Patient resting comfortably.
Vital Signs and Labs
.
Vital Signs and Labs:
Lab Results
04/13/24 05:45
04/11/24 06:43
Temp Pulse Resp BP Pulse Ox
98.6 F 92 17 120/83 100
04/13/24 00:27 04/13/24 00:27 04/13/24 00:27 04/13/24 00:27 04/13/24 00:27
[2024-04-13 07:05] VITALS: BP 166/79
[2024-04-13] MEDS: OSCAL CAL 500 1000 MG PO (08:07)
[2024-04-13] MEDS: WELLBUTRIN XL (24 hour extended release) 300 MG PO (08:07)
[2024-04-13] MEDS: CRESTOR 10 MG PO (08:07)
[2024-04-13] MEDS: THERAGRAN 1 TABLET PO (08:07)
[2024-04-13] MEDS: PROTONIX 40 MG PO (08:07)
[2024-04-13] MEDS: CYMBALTA DELAYED RELEASE 60 MG PO (08:07)
[2024-04-13] MEDS: ASPIR LOW (ENTERIC COATED) 81 MG PO (08:07)
[2024-04-13] MEDS: VITAMIN B-12 1000 MCG PO (08:08)
[2024-04-13 08:20] VITALS: BMI 35.0
--- NOTE | 2024-04-13 11:20 | CM ---
Patient seen bedside.
Patient for d/c home today, sister will transport at 4 pm.
[facility] nurse to be at patients home between 5-5:30 pm.
[facility] to deliver medications to sisters home in [place] between 1-3 pm and bring to patients home.
Sister Monica trained in medication administration by RN yesterday and will be administering medications to patient.
[facility] and [facility] phone numbers provided to patient and sister Monica via text yesterday.
Plan: d/c home today with home infusion- IV anbx via midline
[facility]

[facility]
--- NOTE | 2024-04-13 14:58 | W.PN.HOSP.TC ---
Today's Communication/Plan
-
dc to home
Assessment / Plan
Assessment / Plan
1. Post surgical wound infection, complicated by diabetes, growing gram (+) cocci, Gram (+) rods and Gram (-) rods
Staph Aureus/MSSA cultured
WBC 9.8-->8.7-->7.1-->5.5k
abx as per ID, now on Ancef 2 gms q8h to complete on 04/21
ID consult
currently on Zosyn/Vancomycin
Ortho consult, appreciated, ortho performed I&D of wound 04/[address] Velez, will need home IV abx. Sister will give infusions
2. Diabetes - currently controlled
Continue usual meds.
glu 81-87
3. BUN/Creat 17/1.3-->23/1.5
4. Was having significant pain
better now and off prn Dilaudid
5. Known chronic medical issues:
Fatty liver disease, nonalcoholic
Diabetes mellitus type 2, noninsulin dependent
Type 2 diabetes mellitus with hyperglycemia
Primary osteoarthritis of left shoulder
Morbid obesity
Bilateral primary osteoarthritis of knee
Hypercholesteremia
Mixed hyperlipidemia
Major depressive disorder, single episode, mild
Lymphedema
Moderate persistent asthma
stable, no wheeze noted
Hx of cervical cancer
Obstructive sleep apnea
Benign paroxysmal positional vertigo, unspecified laterality
GERD without esophagitis
Essential (primary) hypertension
BP 127/60
Acquired hypothyroidism
History of bariatric surgery
Stage 3a chronic kidney disease
Charcot joint of left foot
Hx of malignant neoplasm of vulva
-Continue home meds for these
Full code
SCD for DVTp
Discussed with PEDRO Hameed. Due to logistical aspects will need to hold dc, potential tomorrow. Ancef 2 gm q8h abx ordering as per ID
will dc now
see dictated note
More than 30 minutes spent in discharge including
Final examination of the patient
Summarizing hospital stay
Instructions for continuing care to all relevant caregivers
Preparation of discharge records, prescriptions, and referral forms
Total time spent (in minutes): 45
Anticipated Discharge: Today
Subjective/Interval History
-
Date of Service: April 13, 2024
All arrangements completed for pt to go home and sister will give infusions
Objective Data
-
Labs:
Laboratory Results
04/13/24
05:45
WBC 7.6
Hgb 10.3 L
Hct 30.7 L
Plt Count 379
Vital Signs:
Vital Signs
Temp Pulse Resp BP Pulse Ox
97.6 F 88 18 166/79 98
04/13/24 07:05 04/13/24 07:05 04/13/24 07:05 04/13/24 07:05 04/13/24 07:45
I&O
04/12/24 04/13/24 04/14/24
06:59 06:59 06:59
Intake Total 480 / 480 1440 / 1440
Balance 480 / 480 1440 / 1440
Review of Systems
-
History Source: Patient, Family (reviewed with sister, Dr. Ledezma), Physician (reviewed with Dr. Velez) and Coordinated Provider (reviewed with RN)
Constitutional: Denies Fever
EENT: Reports No Symptoms Reported
Respiratory: Reports No Symptoms
Cardiac: Reports No Symptoms; Denies Chest Pain
Abdomen/GI: Reports No Symptoms
Musculoskeletal: Reports Joint Pain and Other (rt leg pain)
Skin: Reports Rash (distal to leg incision site)
Physical Exam
-
General: Well Developed, Well Nourished, No Apparent Distress and Obese
HEENT: Normocephalic, Atraumatic and Moist Mucous Membranes
Respiratory: Clear to Auscultation; Negative Wheezes (no wheeze on forced expiration), Rales or Rhonchi
Cardiac: Regular Rhythm and S1/S2
GI: Soft, Nontender and Nondistended
Musculoskeletal: No Clubbing and No Cyanosis
Skin: Rash (cellulitic changes distal to incision site over knee on Rt, cellulitic changes markedly less intense)
Neuro: Awake, Alert and Oriented
Psych: Calm and Intact Judgement/Insight
[2024-04-13 15:05] VITALS: BP 152/81
--- NOTE | 2024-04-13 15:20 | W.DS.TRANS ---
DC Summary - Coating Technician
-
Discharge Instructions:
Discharge Diagnosis/Procedures Right Knee surgical site infection
Diet Regular
Activity No strenuous activity
Driving Restrictions No driving
Bathing Restrictions keep wound dry
Blood Work cmp, esr, crp, cbc with diff on Tuesday, then
weekly to follow, as per Dr. Velez
Other Services VN
Instructions:
Stand-Alone Forms:
Changes to Home Medications: Yes
Discharge Medications:
DC Medications w/original date entered in [employer]
bupropion HCl 300 mg 24 hr tablet, extended release 300 mg PO DAILY Mental Health/Anxiety 01/06/15
duloxetine 60 mg capsule,delayed release 60 mg PO DAILY Mental Health/Anxiety 01/06/15
calcium carbonate (Calcium 500) 1,000 mg PO DAILY Supplement 12/19/20
cyanocobalamin (vitamin B-12) 1,000 mcg tablet 1,000 mcg PO DAILY Supplement 12/19/20
famotidine 40 mg tablet 40 mg PO HS Gastrointestinal issue 12/19/20
omeprazole 40 mg capsule,delayed release 40 mg PO DAILY Gastrointestinal issue 12/19/20
azelastine 137 mcg (0.1 %) nasal spray 1 spray intranasal BIDPRN PRN congestion 12/06/23
furosemide 40 mg tablet 40 mg PO DAILY Fluid Retention/Swelling 12/06/23
furosemide 40 mg tablet 40 mg PO DAILYPRN PRN extra dose for swelling 12/06/23
hydrocodone 10 mg-acetaminophen 325 mg tablet 1 tab PO Q6HPRN PRN moderate pain 12/06/23
inulin 2 gram chewable tablet (Fiber Gummies) 4 g PO DAILY Supplement 12/06/23
levothyroxine 50 mcg tablet 50 mcg PO DAILY Thyroid 12/06/23
multivitamin 1 tab PO DAILY Supplement 12/06/23
phentermine 37.5 mg tablet 15 mg PO DAILY Neurological Condition 12/06/23
rosuvastatin 10 mg tablet 10 mg PO DAILY High Cholesterol 12/06/23
tirzepatide 15 mg/0.5 mL subcutaneous pen injector (Mounjaro) 10 mg SC TH Diabetes 12/06/23
tramadol 300 mg tablet,extended release 24 hr 300 mg PO DAILY pain 12/06/23
[place] 1 tab PO DAILY Supplement 02/27/24
gabapentin 300 mg capsule 300 mg PO HS Neurological Condition 03/15/24
aspirin 81 mg tablet,delayed release 81 mg PO DAILY 04/07/24
ondansetron 4 mg disintegrating tablet 4 mg PO Q6HPRN PRN nausea with mounjaro 04/07/24
cefazolin 10 gram solution for injection 2 g IV Q8H #0 ea 04/13/24
Home Medication Changes
Ancef 2 gms IV q8h to complete on 04/21 ordered
Pending Results: No
== END 2024-04-13 16:16 | disposition home health service (06) | DRG 857 ==
LOC: 3 WEST ACU 18:26
PROVIDERS: Emergency Medicine; Orthopaedic Surgery; ADMITTING PHYSICIAN Internal Medicine; ATTENDING PHYSICIAN Internal Medicine; CONSULT PHYSICIAN Student in an Organized Health Care Education/Training Program; EMERGENCY PHYSICIAN Emergency Medicine; FAMILY PHYSICIAN Internal Medicine
PROC: 0JBN0ZZ Excision of Right Lower Leg Subcutaneous Tissue and Fascia, Open Approach (ICD-10-PCS; 2024-04-09)
DX: T81.42XA Infection following a procedure, deep incisional surgical site, initial encounter (principal); F32.0 Major depressive disorder, single episode, mild; L03.115 Cellulitis of right lower limb; Z96.653 Presence of artificial knee joint, bilateral; E11.65 Type 2 diabetes mellitus with hyperglycemia; E11.69 Type 2 diabetes mellitus with other specified complication; Z79.85 Long-term (current) use of injectable non-insulin antidiabetic drugs; Z88.2 Allergy status to sulfonamides; Z88.1 Allergy status to other antibiotic agents; K76.0 Fatty (change of) liver, not elsewhere classified; E11.22 Type 2 diabetes mellitus with diabetic chronic kidney disease; E11.610 Type 2 diabetes mellitus with diabetic neuropathic arthropathy; M19.012 Primary osteoarthritis, left shoulder; Z68.35 Body mass index [BMI] 35.0-35.9, adult; M17.0 Bilateral primary osteoarthritis of knee; E78.2 Mixed hyperlipidemia; I89.0 Lymphedema, not elsewhere classified; J45.40 Moderate persistent asthma, uncomplicated; Z85.41 Personal history of malignant neoplasm of cervix uteri; G47.33 Obstructive sleep apnea (adult) (pediatric); N18.31 Chronic kidney disease, stage 3a; I12.9 Hypertensive chronic kidney disease with stage 1 through stage 4 chronic kidney disease, or unspecified chronic kidney disease; E03.9 Hypothyroidism, unspecified; Z98.84 Bariatric surgery status; Z85.44 Personal history of malignant neoplasm of other female genital organs; Z79.82 Long term (current) use of aspirin; E66.812 Obesity, class 2; L91.0 Hypertrophic scar; H81.10 Benign paroxysmal vertigo, unspecified ear; K21.9 Gastro-esophageal reflux disease without esophagitis; G89.29 Other chronic pain; Z90.710 Acquired absence of both cervix and uterus
CPT/HCPCS: 73564; 76882; 80048; 80053; 80202; 82962; 83036; 85025; 85027; 85652; 86140; 87040; 87070; 87075; 87147; 87186; 87205; 96365; 96366; 97116; 97162; 97166; 97530; 99284

== ENCOUNTER → 2024-07-04 13:39 | Outpatient (REF) | payer MEDICARE, OTHER, SELFPAY ==
[2024-07-04 15:55] LABS: % Basophils 1.2 % (0-2); % Eosinophils 3.5 % (0-6); % Immature Granulocytes 0.2 % (0-0.5); % Lymphocytes 26.9 % (20.5-51.1); % Monocytes 8.3 % (1.7-9.3); % Neutrophils 59.9 % (42.2-75.2); Absolute Basophils 0.1 10^3/uL (0-0.2); Absolute Eosinophils 0.3 10^3/uL (0-0.7); Absolute Lymphocytes 2.2 10^3/uL (1.2-3.4); Absolute Monocytes 0.7 10^3/uL (0.1-0.6); Absolute Neutrophils 4.9 10^3/uL (1.4-6.5); Hematocrit 38.5 % (37.0-47.0); Hemoglobin 12.3 g/dL (12.0-16.0); Mean Corp Hgb Conc. 31.9 g/dL (33.0-37.0); Mean Corpuscular Hgb 27.3 pg (27.0-31.0); Mean Corpuscular Volume 85.6 fL (81.0-99.0); Mean Platelet Volume 10.4 fL (7.4-10.4); Nucleated Red Blood Cells % 0 %; Platelet Count 389 10^3/uL (130-400); Red Cell Dist. Width 15.1 % (11.5-14.5); White Blood Cell Count 8.2 10^3/uL (4.8-10.8)
[2024-07-04 16:09] LABS: Iron 53 ug/dl (37-170)
[2024-07-04 16:19] LABS: Percent Saturation 16 % (20-50); Total Iron Binding Capacity 323 ug/dl (265-497)
[2024-07-04 16:45] LABS: Ferritin 14.3 ng/ml (11.1-264.0)
== END ==
LOC: HWLAB 13:39
PROVIDERS: ATTENDING PHYSICIAN Nurse Practitioner Adult Health; FAMILY PHYSICIAN Internal Medicine
DX: D72.829 Elevated white blood cell count, unspecified (principal); E61.1 Iron deficiency; D50.9 Iron deficiency anemia, unspecified
CPT/HCPCS: 82728; 83540; 83550; 85025

== ENCOUNTER → 2024-07-31 16:20 | Outpatient (REF) | payer MEDICARE, OTHER, SELFPAY ==
[2024-07-31 12:29] LABS: % Basophils 0.8 % (0-2); % Eosinophils 4.6 % (0-6); % Immature Granulocytes 0.1 % (0-0.5); % Lymphocytes 29.7 % (20.5-51.1); % Monocytes 8.7 % (1.7-9.3); % Neutrophils 56.1 % (42.2-75.2); Absolute Basophils 0.1 10^3/uL (0-0.2); Absolute Eosinophils 0.4 10^3/uL (0-0.7); Absolute Lymphocytes 2.5 10^3/uL (1.2-3.4); Absolute Monocytes 0.7 10^3/uL (0.1-0.6); Absolute Neutrophils 4.8 10^3/uL (1.4-6.5); Hemoglobin 12.9 g/dL (12.0-16.0); Mean Corp Hgb Conc. 32.3 g/dL (33.0-37.0); Mean Corpuscular Volume 83.7 fL (81.0-99.0); Mean Platelet Volume 10.1 fL (7.4-10.4); Platelet Count 320 10^3/uL (130-400); Red Blood Cell Count 4.78 10^6/uL (4.20-5.40); Red Cell Dist. Width 16.3 % (11.5-14.5); White Blood Cell Count 8.6 10^3/uL (4.8-10.8)
== END ==
LOC: OIDL 16:20
PROVIDERS: ATTENDING PHYSICIAN Registered Nurse
DX: D72.829 Elevated white blood cell count, unspecified (principal); E61.1 Iron deficiency; D50.9 Iron deficiency anemia, unspecified
CPT/HCPCS: 85025

== ENCOUNTER 2024-12-21 18:16 | Emergency (ER) | payer MEDICARE, OTHER, SELFPAY ==
[2024-12-21 18:21] VITALS: BP 145/77
[2024-12-21 18:44] LABS: Hematocrit 40.9 % (37.0-47.0); Hemoglobin 13.7 g/dL (12.0-16.0); Mean Corp Hgb Conc. 33.5 g/dL (33.0-37.0); Mean Corpuscular Volume 88.0 fL (81.0-99.0); Nucleated Red Blood Cells % 0 %; Platelet Count 339 10^3/uL (130-400); Red Cell Dist. Width 12.7 % (11.5-14.5)
[2024-12-21 19:07] LABS: ALT (SGPT) 27 U/L (0-35); AST (SGOT) 30 U/L (14-36); Albumin 4.3 g/dl (3.5-5.0); Alkaline Phosphatase 98 U/L (38-126); Blood Urea Nitrogen 13 mg/dl (7-17); Calcium 9.5 mg/dl (8.4-10.2); Carbon Dioxide 29 mmol/L (22-30); Chloride 107 mmol/L (98-107); Glucose 78 mg/dl (70-99); Potassium 4.4 mmol/L (3.5-5.1); Sodium 141 mmol/L (135-145); Total Protein 6.7 g/dl (6.3-8.2); eGFR > 60.00
== END 2024-12-22 01:00 ==
LOC: EMR 18:16
PROVIDERS: Emergency Medicine; FAMILY PHYSICIAN Family Medicine
DX: Z53.21 Procedure and treatment not carried out due to patient leaving prior to being seen by health care provider (principal)
CPT/HCPCS: 80053; 83605; 85025; 87040